=== PATIENT | female | born 1965 | race Caucasian/White ===

== ENCOUNTER 2017-01-06 00:31 | Emergency (ER) | payer OTHER ==
[2017-01-06] MEDS ORDERED: Reglan 10 MG/2 ML IV ONE (01:03)
[2017-01-06] MEDS ORDERED: BENADRYL 50 MG/ML IV ONE (01:03)
[2017-01-06] MEDS ORDERED: Sodium Chloride 0.9% 1000 ML 1,000 ML IV SCH (01:15)
--- NOTE | 2017-01-06 01:15 | ERPHSYRPT ---
- History of Present Illness Time Seen by Provider: 01/06/17 00:58 Source: patient Exam Limitations: clinical condition Patient Subjective Stated Complaint: "I woke up with a migraine today. it is just getting worse." Triage Nursing Assessment: aox3, breathing easy unlabored, skin pink warm dry, steady gait, PERRLA, no facial drooping or weakness noted Physician History: PATIENT WITH HISTORY OF MIGRAINE HEADACHES LONGSTANDING AWAKENED THIS MORNING WITH A MIGRAINE HEADACHE, ASSOCIATED WITH PHOTOPHOBIA, DENIES BLURRED VISION, NECK STIFFFNESS, FEVER OR CHILLS. Timing/Duration: today Quality: throbbing Head Pain Location: global Severity of Pain-Max: moderate Severity of Pain-Current: moderate Recent Head Trauma: no recent headache/trauma Modifying Factors: Improves With: exposure to light Associated Symptoms: sensitive to light Previous symptoms: same symptoms as today Allergies/Adverse Reactions: Penicillins Allergy (Unknown, Verified 01/06/17 00:34) amoxicillin Adverse Reaction (Mild, Verified 01/06/17 00:34) Vomiting Home Medications: Fluticasone/Salmeterol Disc [Advair 250-50 Diskus 14 Dose] 1 puff IH BID 11/13/15 [History] Nitroglycerin 0.4 mg Tablet [Nitrostat 0.4 MG Tablet] 0.4 mg PO UD PRN 05/21 [History] Aspirin 81 gm Chew [Baby Aspirin 81 mg Chew] 81 mg PO DAILY 01/06/17 [ History] Bupropion HCl [Wellbutrin] 150 mg PO BID 01/06/17 [History] Diltiazem HCl 30 mg [Cardizem 30 MG] 90 mg PO BID 01/06/17 [History] Imipramine HCl [Tofranil] 25 mg PO DAILY 01/06/17 [History] Lisinopril 10 mg [Zestril 10 MG] 10 mg PO DAILY 01/06/17 [History] Metformin HCl 500 mg [Glucophage 500 MG] 500 mg PO BID 01/06/17 [History] Propranolol HCl 20 mg [Inderal 20 MG] 80 mg PO DAILY 01/06/17 [History] Hx Tetanus, Diphtheria Vaccination/Date Given: Yes Hx Influenza Vaccination/Date Given: Yes Hx Pneumococcal Vaccination/Date Given: Yes - Review of Systems Constitutional: No Fever, No Chills Eyes: No Symptoms Ears, Nose, & Throat: No Symptoms Respiratory: No Symptoms, No Cough, No Dyspnea Cardiac: No Symptoms, No Chest Pain, No Edema, No Syncope Abdominal/Gastrointestinal: No Symptoms, No Abdominal Pain, No Nausea, No Vomiting, No Diarrhea Genitourinary Symptoms: Incontinence, No Dysuria Musculoskeletal: No Symptoms, No Back Pain, No Neck Pain Skin: No Symptoms, No Rash Neurological: Headache, No Dizziness, No Focal Weakness, No Sensory Changes Psychological: No Symptoms Endocrine: No Symptoms All Other Systems: Reviewed and Negative - Past Medical History Pertinent Past Medical History: Yes Neurological History: Migraines, TIA ENT History: No Pertinent History Cardiac History: No Pertinent History, High Cholesterol, Hypertension Respiratory History: COPD Endocrine Medical History: No Pertinent History Musculoskeletal History: No Pertinent History GI Medical History: No Pertinent History History: No Pertinent History Psycho-Social History: Depression Female Reproductive Disorders: No Pertinent History - Past Surgical History Past Surgical History: Yes Neuro Surgical History: No Pertinent History, Other Cardiac: No Pertinent History Respiratory: No Pertinent History Gastrointestinal: Cholecystectomy Genitourinary: No Pertinent History Musculoskeletal: No Pertinent History Female Surgical History: Section, Hysterectomy Other Surgical History: . back surgery - Social History Smoking Status: Current every day smoker How long have you smoked: 28 Exposure to second hand smoke: No Drug Use: none Patient Lives Alone: No Significant Family History: cancer - Female History Hx Now: No - Nursing Vital Signs Nursing Vital Signs: Initial Vital Signs Temperature 98.7 F Temperature Source Oral Pulse Rate 79 Respiratory Rate 14 Blood Pressure [Right Arm] 174/97 Pain Intensity 8 - Physical Exam General Appearance: mild distress Eye Exam: PERRL/EOMI Ears, Nose, Throat Exam: normal ENT inspection, moist mucous membranes, other ( NO PERCUSSION TENDERNESS OVER SINUSES) Neck Exam: normal inspection, supple, full range of motion, No meningismus Respiratory Exam: normal breath sounds, lungs clear Cardiovascular Exam: regular rate/rhythm, normal heart sounds Gastrointestinal/Abdominal Exam: soft, No tenderness, No distention Back Exam: normal inspection, normal range of motion Mental Status Exam: alert, oriented x 3, 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 Exam: normal speech, PERRL, No facial droop Coordination/Gait Exam: normal cerebellar function Motor/Sensory Exam: no motor deficit, no sensory deficit DTR Exam: bicep (R): 2+, bicep (L): 2+, tricep (R): 2+, tricep (L): 2+, knee (R) : 2+, knee (L): 2+, ankle (R): 2+, ankle (L): 2+ Skin Exam: normal color, warm, dry, No rash SpO2 Interpretation: normal SpO2: 97 Oxygen Delivery: Room Air Ordered Tests: Active Orders 24 hr Category Date Time Status IV Insertion STAT Care 01/06/17 01:03 Active Medication Summary Generic Name Dose Route Start Last Admin Trade Name Freq PRN Reason Stop Dose Admin Sodium Chloride 1,000 mls @ 100 mls/hr 01/06/17 01:15 01/06/17 01:30 Sodium Chloride 0.9% 1000 Ml IV 02/05/17 01:14 100 mls/hr .Q10H BOSSMAN Administration Discontinued Medications Generic Name Dose Route Start Last Admin Trade Name Freq PRN Reason Stop Dose Admin Diphenhydramine HCl 25 mg 01/06/17 01:03 01/06/17 01:30 Benadryl 50 Mg/Ml IV 01/06/17 01:04 25 mg STAT ONE Administration Diphenhydramine HCl Confirm 01/06/17 01:29 Benadryl 50 Mg/Ml Administered 01/06/17 01:30 Dose 50 mg .ROUTE .STK-MED ONE Hydromorphone HCl 1 mg 01/06/17 01:38 01/06/17 01:54 Hydromorphone 1 Mg/Ml Ampule IV 01/06/17 01:39 1 mg STAT ONE Administration Hydromorphone HCl Confirm 01/06/17 01:53 Hydromorphone 1 Mg/Ml Ampule Administered 01/06/17 01:54 Dose 1 mg .ROUTE .STK-MED ONE Metoclopramide HCl 10 mg 01/06/17 01:03 01/06/17 01:30 Reglan 10 Mg/2 Ml IV 01/06/17 01:04 10 mg STAT ONE Administration Metoclopramide HCl Confirm 01/06/17 01:28 Reglan 10 Mg/2 Ml Administered 01/06/17 01:29 Dose 10 mg .ROUTE .STK-MED ONE - Progress Progress: improved, re-examined Progress Note: 01/06/17 01:13 PATIENT GIVEN IV FLUIDS, NORMAL SALINE 100MG/HR REGLAN 10MG, BENADRYL 25MG IV AND DILAUDID 1MG IV Counseled pt/family regarding: diagnosis, need for follow-up - Departure Time of Disposition: 02:25 Departure Disposition: Home Clinical Impression: ACUTE MIGRAINE CEPHALGIA Condition: Stable Critical Care Time: No Referrals: CHASE LEE [Primary Care Provider] - Instructions: Headache Additional Instructions: FOLLOWUP WITH HOUR FAMILY PHYSICIAN AND YOUR NEUROLOGIST. FIORICET EVERY 4 HOURS FOR PAIN DISCOMFORT NEEDED. Prescriptions: Butalb/Acetaminophen/Caffeine [Fioricet 50-300-40 mg Capsule] 1 each PO Q4H PRN PRN #15 capsule PRN Reason: Pain
[2017-01-06] MEDS ORDERED: Reglan 10 MG/2 ML ONE (01:28)
[2017-01-06] MEDS ORDERED: Sodium Chloride 0.9% 1000 ML 1,000 ML ONE (01:28)
[2017-01-06] MEDS ORDERED: BENADRYL 50 MG/ML ONE (01:29)
[2017-01-06] MEDS ORDERED: Hydromorphone 1 mg/ml Ampule IV ONE (01:38)
[2017-01-06] MEDS ORDERED: Hydromorphone 1 mg/ml Ampule ONE (01:53)
[2017-01-06 01:58] VITALS: BP 174/97; PULSE 79
[2017-01-06 02:18] VITALS: O2SAT 97
== END 2017-01-06 02:41 | disposition home or self-care (01) ==
LOC: ED 00:31
DX: G43.909 Migraine, unspecified, not intractable, without status migrainosus (principal)
CPT/HCPCS: 36000; 96360; 96365; 96374; 96375; 99284; J1170; J1200

== ENCOUNTER 2017-02-02 20:53 | Emergency (ER) | payer OTHER ==
[2017-02-02] MEDS ORDERED: Reglan 10 MG/2 ML IV ONE (21:07)
[2017-02-02] MEDS ORDERED: Sodium Chloride 0.9% 1000 ML 1,000 ML IV STA (21:07)
[2017-02-02] MEDS ORDERED: TORAdol 30 mg Injection IV ONE (21:07)
[2017-02-02] MEDS ORDERED: BENADRYL 50 MG/ML IV ONE (21:07)
[2017-02-02] MEDS ORDERED: Reglan 10 MG/2 ML ONE (21:11)
[2017-02-02] MEDS ORDERED: TORAdol 30 mg Injection ONE (21:11)
[2017-02-02] MEDS ORDERED: Sodium Chloride 0.9% 1000 ML 1,000 ML ONE (21:11)
[2017-02-02] MEDS ORDERED: BENADRYL 50 MG/ML ONE (21:11)
[2017-02-02 21:21] LABS: VBG BASE EXCESS 4.7 (-2.0-2.0); VBG HCO3- 28.2 meq/L (22-28); VBG O2 SATURATION 87.6 (95-100); VBG pH 7.49 (7.32-7.42)
[2017-02-02 21:22] LABS: VBG CARBOXYHEMOGLOBIN 8.3 % T HGB (0.0-6.9); VBG POTASSIUM 2.7 (3.5-5.1)
[2017-02-02] MEDS ORDERED: K-LYTE 25 MEQ PO ONE (21:23)
[2017-02-02] MEDS ORDERED: K-LYTE 25 MEQ ONE (21:27)
--- NOTE | 2017-02-02 21:29 | ERPHSYRPT ---
- History of Present Illness Time Seen by Provider: 02/02/17 21:03 Source: patient Patient Subjective Stated Complaint: Pt sts headache all over head x 1 week. Took 2 500 mg tylenol at 1600 and 2 200 mg ibuprofen at 1300 without relief. Describes as feeling like someone is hitting her in the head. Lights and noise makes pain worse. Sts nausea, vomiting x 2. Sts feels like normal migraines at home. Sts has an appt Friday with Dr. Stringer in [place] for a "migraine block" Triage Nursing Assessment: Pt alert, oriented, answers questions appropriately. Ambulatory to room, steady gait noted. Skin p/w/d, resps non-labored. Pt holding head. Pupils PERRL. Physician History: CC: headache Hx: 51 y/o patient of Dr Stringer a neurologist in [place]. She has hx of migraine headaches. Prior negative MRI/MRA brain. She reports return of her typical headache, gradual, constant since past one week. No fever. She has nausea and photophobia. Not better with home meds. She is scheduled next week for a block procedure. She vomited twice at home today. Borderline DM. She is a smoker. Timing/Duration: week(s) (1) Head Pain Location: global Severity of Pain-Max: severe Severity of Pain-Current: severe Allergies/Adverse Reactions: Penicillins Allergy (Unknown, Verified 02/02/17 21:05) amoxicillin Adverse Reaction (Mild, Verified 02/02/17 21:05) Vomiting Home Medications: Fluticasone/Salmeterol Disc [Advair 250-50 Diskus 14 Dose] 1 puff IH BID 11/13/15 [History] Nitroglycerin 0.4 mg Tablet [Nitrostat 0.4 MG Tablet] 0.4 mg PO UD PRN 05/21 [History] Aspirin 81 gm Chew [Baby Aspirin 81 mg Chew] 81 mg PO DAILY 01/06/17 [ History] Bupropion HCl [Wellbutrin] 150 mg PO BID 01/06/17 [History] Diltiazem HCl 30 mg [Cardizem 30 MG] 90 mg PO BID 01/06/17 [History] Imipramine HCl [Tofranil] 25 mg PO DAILY 01/06/17 [History] Lisinopril 10 mg [Zestril 10 MG] 10 mg PO DAILY 01/06/17 [History] Metformin HCl 500 mg [Glucophage 500 MG] 500 mg PO BID 01/06/17 [History] Propranolol HCl 20 mg [Inderal 20 MG] 80 mg PO DAILY 01/06/17 [History] Hx Tetanus, Diphtheria Vaccination/Date Given: Yes Hx Influenza Vaccination/Date Given: Yes Hx Pneumococcal Vaccination/Date Given: Yes Immunizations Up to Date: Yes - Review of Systems Constitutional: No Fever, No Chills Eyes: Photophobia, No Vision Changes Ears, Nose, & Throat: No Symptoms Respiratory: No Symptoms Cardiac: No Chest Pain Abdominal/Gastrointestinal: Nausea, Vomiting (X2), No Abdominal Pain Musculoskeletal: No Symptoms Neurological: Headache, No Paralysis, No Parasthesia All Other Systems: Reviewed and Negative - Past Medical History Pertinent Past Medical History: Yes Neurological History: Migraines, TIA ENT History: No Pertinent History Cardiac History: No Pertinent History, High Cholesterol, Hypertension Respiratory History: COPD Endocrine Medical History: No Pertinent History Musculoskeletal History: No Pertinent History GI Medical History: No Pertinent History History: No Pertinent History Psycho-Social History: Depression Female Reproductive Disorders: No Pertinent History - Past Surgical History Past Surgical History: Yes Neuro Surgical History: No Pertinent History, Other Cardiac: No Pertinent History Respiratory: No Pertinent History Gastrointestinal: Cholecystectomy Genitourinary: No Pertinent History Musculoskeletal: No Pertinent History Female Surgical History: Section, Hysterectomy Other Surgical History: . back surgery - Social History Smoking Status: Current every day smoker How long have you smoked: 25 Exposure to second hand smoke: No Drug Use: none Patient Lives Alone: No Significant Family History: cancer - Female History Hx Last Menstrual Period: partial hyst Hx Now: No - Nursing Vital Signs Nursing Vital Signs: Initial Vital Signs Temperature 98.4 F Temperature Source Oral Pulse Rate 78 Respiratory Rate 16 Blood Pressure [Right Arm] 127/86 Pain Intensity 9 - Physical Exam General Appearance: alert Eye Exam: PERRL/EOMI Ears, Nose, Throat Exam: normal ENT inspection, moist mucous membranes Neck Exam: normal inspection, non-tender, supple Respiratory Exam: normal breath sounds, lungs clear Cardiovascular Exam: regular rate/rhythm, No murmur Gastrointestinal/Abdominal Exam: soft, No tenderness, No distention Extremity Exam: normal inspection, normal range of motion Mental Status Exam: alert, oriented x 3, 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 Exam: normal hearing, normal speech, PERRL Coordination/Gait Exam: normal gait Motor/Sensory Exam: no motor deficit, no sensory deficit Skin Exam: warm, dry, No rash SpO2 Interpretation: normal SpO2: 97 Oxygen Delivery: Room Air - Course Nursing assessment & vital signs reviewed: Yes EKG Interpreted by Me: RATE (86), Sinus Rhythm, NORMAL AXIS, NORMAL INTERVALS ( QTc 467), Non-specific ST Changes, Other (QRS 102; U waves present, nonspecific changes present) Ordered Tests: Active Orders 24 hr Category Date Time Status EKG-ER Only STAT Care 02/02/17 21:23 Active IV Insertion STAT Care 02/02/17 21:07 Active Oxygen-ED Only NON-REBREATHER 100% Care 02/02/17 21:23 Active BMP Stat Lab 02/02/17 21:15 Completed Glucose,Critical Care Urgent Lab 02/02/17 21:15 Completed MAGNESIUM Stat Lab 02/02/17 21:15 Completed VENOUS BLOOD GAS Urgent Lab 02/02/17 21:15 Completed Medication Summary Generic Name Dose Route Start Last Admin Trade Name Freq PRN Reason Stop Dose Admin Magnesium Sulfate/Dextrose 100 mls @ 100 mls/hr 02/02/17 21:45 02/02/17 22:51 Magnesium 1 Gm / 100 Ml D5w IV 02/02/17 23:44 100 mls/hr Q1H BOSSMAN Administration Discontinued Medications Generic Name Dose Route Start Last Admin Trade Name Freq PRN Reason Stop Dose Admin Diphenhydramine HCl 25 mg 02/02/17 21:07 02/02/17 21:21 Benadryl 50 Mg/Ml IV 02/02/17 21:08 25 mg STAT ONE Administration Diphenhydramine HCl Confirm 02/02/17 21:11 Benadryl 50 Mg/Ml Administered 02/02/17 21:12 Dose 50 mg .ROUTE .STK-MED ONE Sodium Chloride 1,000 mls @ 999 mls/hr 02/02/17 21:07 02/02/17 21:20 Sodium Chloride 0.9% 1000 Ml IV 02/02/17 22:07 999 mls/hr .Q1H1M STA Administration Sodium Chloride Confirm 02/02/17 21:11 Sodium Chloride 0.9% 1000 Ml Administered 02/02/17 21:12 Dose 1,000 mls @ ud .ROUTE .STK-MED ONE Ketorolac Tromethamine 30 mg 02/02/17 21:07 02/02/17 21:20 Toradol 30 Mg Injection IV 02/02/17 21:08 30 mg STAT ONE Administration Ketorolac Tromethamine Confirm 02/02/17 21:11 Toradol 30 Mg Injection Administered 02/02/17 21:12 Dose 30 mg .ROUTE .STK-MED ONE Metoclopramide HCl 10 mg 02/02/17 21:07 02/02/17 21:20 Reglan 10 Mg/2 Ml IV 02/02/17 21:08 10 mg STAT ONE Administration Metoclopramide HCl Confirm 02/02/17 21:11 Reglan 10 Mg/2 Ml Administered 02/02/17 21:12 Dose 10 mg .ROUTE .STK-MED ONE Potassium Bicarbonate 50 meq 02/02/17 21:23 02/02/17 21:30 K-Lyte 25 Meq PO 02/02/17 21:24 50 meq STAT ONE Administration Potassium Bicarbonate Confirm 02/02/17 21:27 K-Lyte 25 Meq Administered 02/02/17 21:28 Dose 50 meq .ROUTE .STK-MED ONE Lab/Rad Data: Laboratory Result Diagrams 02/02/17 21:15 Laboratory Results 02/02/17 02/02/17 02/02/17 Range/Units 21:15 21:15 21:15 VBG pH 7.49 H (7.32-7.42) VBG pCO2 at Pat Temp 37 L (42-55) mm/Hg VBG pO2 at Pat Temp 42 H (25-40) mm/Hg VBG HCO3 28.2 H (22-28) meq/L VBG O2 Sat (Giuliana) 87.6 L (95-100) VBG Base Excess 4.7 H (-2.0-2.0) VBG Hemoglobin 12.0 VBG Carboxyhemoglobin 8.3 H* (0.0-6.9) % T HGB POC Potassium 2.7 L* (3.5-5.1) Glucose 104 99 (70-110) Sodium 140 (136-145) mEq/L Potassium 2.7 L* (3.5-5.1) mEq/L Chloride 104 (98-107) mEq/L Carbon Dioxide 24.9 (21-32) mEq/L Anion Gap 14.2 (5-15) MEQ/L BUN 7 L (9-20) mg/dL Creatinine 0.40 L (0.55-1.30) mg/dl Estimated GFR > 60 ML/MIN Calcium 9.6 (8.5-10.1) mg/dL Magnesium 1.3 L (1.8-2.4) mg/dL - Progress Progress Note: 02/02/17 22:58 Pt was medicated with benadryl, reglan, toradol. K and mag were low. She has had this in the past but is not currently on supplements. PO K given. Mag rider given. She feels better and wants to go home to be with her grand-daughter. Advised follow up with Dr Fuentes. Advised smoking cessation and quit now number and RT consult given. Counseled pt/family regarding: lab results, diagnosis, need for follow-up - Departure Time of Disposition: 22:59 Departure Disposition: Home Clinical Impression: Migraine headache, Hypokalemia, Smoker Condition: Stable Critical Care Time: No Referrals: CHASE FUENTES [Primary Care Provider] - Instructions: Headache, Hypokalemia, Quit Smoking Additional Instructions: No driving tonite and stay with family. Rx K-dur. Rx mag ox. Follow up with Dr Fuentes in 1-2 days. Return for problems or concerns. Work on smoking cessation. Prescriptions: Magnesium Oxide 400 mg [Mag-Ox 400] 400 mg PO DAILY #14 tablet Potassium Chloride [K-Dur] 20 meq PO BID #30 tab.er.prt
[2017-02-02 21:39] LABS: ANION GAP 14.2 MEQ/L (5-15); BLOOD UREA NITROGEN 7 mg/dL (9-20); CHLORIDE 104 mEq/L (98-107); Carbon Dioxide 24.9 mEq/L (21-32); Glucose 104 MG/DL (70-110); MAGNESIUM 1.3 mg/dL (1.8-2.4); SODIUM 140 mEq/L (136-145)
[2017-02-02 21:41] LABS: Potassium 2.7 mEq/L (3.5-5.1)
[2017-02-02] MEDS ORDERED: Magnesium 1 Gm / 100 Ml D5W*** 100 ML IV ONE ×2 (21:41→21:53)
[2017-02-02] MEDS: Magnesium 1 Gm / 100 Ml D5W*** 100 ML IV SCH ×2 (21:42→22:51)
[2017-02-02 23:37] VITALS: BP 118/70; PULSE 72; O2SAT 95
== END 2017-02-02 23:37 | disposition home or self-care (01) ==
LOC: ED 20:53
DX: G43.909 Migraine, unspecified, not intractable, without status migrainosus (principal); E87.6 Hypokalemia; Z72.0 Tobacco use; I10 Essential (primary) hypertension; J44.9 Chronic obstructive pulmonary disease, unspecified; E78.00 Pure hypercholesterolemia, unspecified; F32.9 Major depressive disorder, single episode, unspecified; E11.9 Type 2 diabetes mellitus without complications; Z79.4 Long term (current) use of insulin; Z79.899 Other long term (current) drug therapy
CPT/HCPCS: 36000; 36415; 80048; 82805; 82947; 83735; 93005; 96360; 96361; 96374; 96375; 99284; J1200; J1885; J3475; A9270-GY

== ENCOUNTER 2017-02-07 20:24 | Emergency (ER) | payer OTHER ==
[2017-02-07] MEDS ORDERED: NALBUPHINE HCL 10 MG/1 ML INJECTION IM STA (20:43)
[2017-02-07] MEDS ORDERED: TORAdol 30 mg Injection IM ONE (20:43)
[2017-02-07] MEDS ORDERED: Nubain 10 MG/ML ONE (20:47)
[2017-02-07] MEDS ORDERED: TORAdol 30 mg Injection ONE (20:47)
--- NOTE | 2017-02-07 20:47 | ERPHSYRPT ---
- History of Present Illness Time Seen by Provider: 02/07/17 20:44 Source: patient Exam Limitations: no limitations Patient Subjective Stated Complaint: pt states she has had a headache off and on for the last 2 weeks. states its been getting much worse today. Triage Nursing Assessment: pt alert and oriented, answers questions approp. pt ambulatory with steady gait noted. respirations nonlabored with lungs cta. pt c/ o throbbing headache made worse with light. pupils equal and reactive. ext strength upper and lower equal and strong. Physician History: pt states she has had a headache off and on for the last 2 weeks. states its been getting much worse today. Timing/Duration: today Quality: aching Head Pain Location: frontal Severity of Pain-Max: moderate Severity of Pain-Current: moderate Recent Head Trauma: frequent headaches, chronic headaches Modifying Factors: Improves With: exposure to light Associated Symptoms: facial pain, sensitive to light, stiff neck, vision changes Previous symptoms: same symptoms as today Allergies/Adverse Reactions: Penicillins Allergy (Unknown, Verified 02/07/17 20:38) Rash amoxicillin Adverse Reaction (Intermediate, Verified 02/07/17 20:38) Rash Home Medications: Fluticasone/Salmeterol Disc [Advair 250-50 Diskus 14 Dose] 1 puff IH BID 11/13/15 [History] Nitroglycerin 0.4 mg Tablet [Nitrostat 0.4 MG Tablet] 0.4 mg PO UD PRN 05/21 [History] Aspirin 81 gm Chew [Baby Aspirin 81 mg Chew] 81 mg PO DAILY 01/06/17 [ History] Bupropion HCl [Wellbutrin] 150 mg PO BID 01/06/17 [History] Lisinopril 10 mg [Zestril 10 MG] 10 mg PO DAILY 01/06/17 [History] Metformin HCl 500 mg [Glucophage 500 MG] 500 mg PO BID 01/06/17 [History] Diltiazem HCl 240 mg [Cardizem CD 240 MG] 1 tab PO DAILY 02/05/17 [History ] Propranolol HCl 1 tab PO DAILY 02/05/17 [History] Hx Tetanus, Diphtheria Vaccination/Date Given: Yes Hx Influenza Vaccination/Date Given: Yes (fall 2015) Hx Pneumococcal Vaccination/Date Given: Yes (Aug 2016) - Review of Systems Constitutional: No Fever, No Chills Eyes: No Symptoms Ears, Nose, & Throat: No Symptoms Respiratory: No Cough, No Dyspnea Cardiac: No Chest Pain, No Edema, No Syncope Abdominal/Gastrointestinal: No Abdominal Pain, No Nausea, No Vomiting, No Diarrhea Genitourinary Symptoms: No Dysuria Musculoskeletal: No Back Pain, No Neck Pain Skin: No Rash Neurological: Headache, No Dizziness, No Focal Weakness, No Sensory Changes Psychological: No Symptoms Endocrine: No Symptoms All Other Systems: Reviewed and Negative - Past Medical History Pertinent Past Medical History: Yes Neurological History: Migraines ENT History: No Pertinent History Cardiac History: No Pertinent History, High Cholesterol, Hypertension Respiratory History: COPD Endocrine Medical History: Diabetes Type II Musculoskeletal History: No Pertinent History GI Medical History: No Pertinent History History: No Pertinent History Psycho-Social History: No Pertinent History Female Reproductive Disorders: Menstrual Problems - Past Surgical History Past Surgical History: Yes Neuro Surgical History: No Pertinent History Cardiac: No Pertinent History Respiratory: No Pertinent History Gastrointestinal: Cholecystectomy Genitourinary: No Pertinent History Musculoskeletal: No Pertinent History Female Surgical History: Section, Hysterectomy Other Surgical History: - Social History Smoking Status: Current every day smoker How long have you smoked: 25 Exposure to second hand smoke: No Drug Use: none Patient Lives Alone: No Significant Family History: cancer - Female History Hx Last Menstrual Period: post Hx Now: No - Nursing Vital Signs Nursing Vital Signs: Initial Vital Signs Temperature 98.6 F Temperature Source Oral Pulse Rate 72 Respiratory Rate 18 Blood Pressure [Right Arm] 168/96 Pain Intensity 10 - Physical Exam General Appearance: no apparent distress Eye Exam: PERRL/EOMI Ears, Nose, Throat Exam: normal ENT inspection, moist mucous membranes Neck Exam: normal inspection, supple, full range of motion, No meningismus Respiratory Exam: normal breath sounds, lungs clear Cardiovascular Exam: regular rate/rhythm, normal heart sounds Gastrointestinal/Abdominal Exam: soft, No tenderness, No distention Back Exam: normal inspection, normal range of motion Mental Status Exam: alert, oriented x 3, cooperative lvn lpn Exam: normal speech, PERRL, No facial droop Coordination/Gait Exam: normal cerebellar function Motor/Sensory Exam: no motor deficit, no sensory deficit Skin Exam: normal color, warm, dry, No rash SpO2: 96 Oxygen Delivery: Room Air - Course Nursing assessment & vital signs reviewed: Yes Ordered Tests: Medication Summary Generic Name Dose Route Start Last Admin Trade Name Zuhair PRN Reason Stop Dose Admin Ketorolac Tromethamine 60 mg 02/07/17 20:43 Toradol 30 Mg Injection IM 02/07/17 20:44 STAT ONE Nalbuphine HCl 10 mg 02/07/17 20:43 Nalbuphine Hcl 10 Mg/1 Ml Injection IM 02/07/17 20:44 STAT STA - Progress Progress: improved Counseled pt/family regarding: diagnosis, need for follow-up - Departure Time of Disposition: 20:47 Departure Disposition: Home Clinical Impression: Migraine headache Qualifiers: Migraine type: with aura Status migrainosus presence: without status migrainosus Intractability: intractable Qualified Code(s): G43.119 - Migraine with aura, intractable, without status migrainosus Condition: Stable Critical Care Time: Yes Critical Care Time(excluding separately billable procedures): 30-74 minutes Referrals: CHASE LEE [Primary Care Provider] - Instructions: Headache Additional Instructions: HEADACHE 1. After discharge from the emergency department, you should rest at home in a cool, dark, quiet place for 12-24 hours. 2. If any of the following signs or symptoms are noticed, you should be re- evaluated right away: A. Visual changes B. Stiff Neck C. Change in quality or location of pain D. Fever E. Recurrent vomiting 3. If pain medications were prescribed or given, they may cause drowsiness.
[2017-02-07 21:14] VITALS: BP 129/70; PULSE 76; O2SAT 98
== END 2017-02-07 21:14 | disposition home or self-care (01) ==
LOC: ED 20:24
DX: G43.119 Migraine with aura, intractable, without status migrainosus (principal)
CPT/HCPCS: 96372; 99283; J1885; J2300

== ENCOUNTER 2017-02-12 05:53 | Day surgery (SDC) | payer OTHER ==
[2017-02-12] MEDS ORDERED: Lactated Ringers 1,000 ML IV SCH (06:30)
[2017-02-12 07:58] VITALS: BP 141/81; PULSE 70; O2SAT 94
[2017-02-12] MEDS ORDERED: Ketamine HCl 50 MG/ML IV ONE (08:00)
[2017-02-12] MEDS ORDERED: DIPRIVAN 200 MG/20 ML IV ONE (09:00)
--- NOTE | 2017-02-12 09:52 | OP ---
SURGERY DATE/TIME: 02/12/2017 0700 PREOPERATIVE DIAGNOSES: 1) Epigastric pain. 2) Nausea. POSTOPERATIVE DIAGNOSIS: Normal exam. PROCEDURE: EGD. SURGEON: Alonso Ordonez M.D. ANESTHESIA: MAC by Parth Ingram CRNA. ESTIMATED BLOOD LOSS: None. SPECIMENS: None. DESCRIPTION OF PROCEDURE: After informed written consent was obtained, the patient was taken to the endoscopy suite. She underwent monitored anesthesia and a bite block was inserted. The endoscope was inserted into posterior oropharynx and under direct visualization the esophagus was traversed. The gastroesophageal mucosa was normal in appearance free of lesions or defects. Upon entering the stomach there was normal rugated gastric mucosa free of any lesions or defects. The gastric antrum area was inspected and noted to be free of any lesions or abnormalities. Pylorus was traversed and first and second portions of the duodenum within normal limits. Upon withdrawal again there were no appreciable mucosal abnormalities in the gastric mucosa, gastroesophageal junction or the esophagus. The scope was removed and the patient was transferred to the recovery room in excellent condition.
== END 2017-02-12 08:27 | disposition home or self-care (01) ==
LOC: SDC 05:53
PROVIDERS: ATTEND Family Medicine
PROC: 0DJ08ZZ Inspection of Upper Intestinal Tract, Via Natural or Artificial Opening Endoscopic (ICD-10-PCS; principal; 2017-02-12)
DX: R10.13 Epigastric pain (principal); R11.0 Nausea
CPT/HCPCS: 00740; J2704

== ENCOUNTER 2017-03-02 20:32 | Emergency (ER) | payer OTHER ==
--- NOTE | 2017-03-02 21:05 | ERPHSYRPT ---
- History of Present Illness Time Seen by Provider: 03/02/17 20:59 Source: patient Exam Limitations: no limitations Patient Subjective Stated Complaint: PT WOKE THIS MORNING AND NOTICED A BLISTER ON THE PALM OF HER RIGHT HAND. COMPLAINS OF HAND PAIN AND GENERALIZED SWELLING TO THE RIGHT HAND. PT UNABLE TO CLOSE THE R HAND. Triage Nursing Assessment: PT IS AOX3, AMBULATORY TO COT WITH NO DIFFICULTIES, RESP ARE EASY AND NONLABORED, SKIN IS PWD. R HAND IS SWOLLEN WITH A SMALL RAISED AREA NOTED TO THE PALM. PULSES ARE STRONG AND REGULAR. NORMAL ROM TO ALL EXTREMITIES. Physician History: Pt. awakened today with blister on R palm of hand. No trauma or injury to area. No insect bite of skin rupture at any time. Noticed redness to area with some swelling to R hand. No fever, chills, dizziness, weakness, nausea, vomiting or any systemic symptoms. Tylenol with some relief. Have not been working outside but inside cleaning. Timing/Duration: today Quality: painful Severity: mild Location: other (R hand) Possible Causes: no cause identified Modifying Factors: Improves With: other (hand movement worsens) Associated Symptoms: blisters, change in skin texture, No fever, No numbness, No pallor Allergies/Adverse Reactions: Penicillins Allergy (Unknown, Verified 03/02/17 20:45) Rash amoxicillin Adverse Reaction (Intermediate, Verified 03/02/17 20:45) Rash Home Medications: Fluticasone/Salmeterol Disc [Advair 250-50 Diskus 14 Dose] 1 puff IH BID 11/13/15 [History] Nitroglycerin 0.4 mg Tablet [Nitrostat 0.4 MG Tablet] 0.4 mg PO UD PRN 05/21 [History] Aspirin 81 gm Chew [Baby Aspirin 81 mg Chew] 81 mg PO DAILY 01/06/17 [ History] Bupropion HCl [Wellbutrin] 150 mg PO BID 01/06/17 [History] Lisinopril 10 mg [Zestril 10 MG] 10 mg PO DAILY 01/06/17 [History] Metformin HCl 500 mg [Glucophage 500 MG] 500 mg PO BID 01/06/17 [History] Diltiazem HCl 240 mg [Cardizem CD 240 MG] 1 tab PO DAILY 02/05/17 [History ] Propranolol HCl 1 tab PO DAILY 02/05/17 [History] Hx Tetanus, Diphtheria Vaccination/Date Given: No Hx Influenza Vaccination/Date Given: No Hx Pneumococcal Vaccination/Date Given: No Immunizations Up to Date: Yes - Review of Systems Constitutional: No Symptoms, No Fever, No Chills Eyes: No Symptoms Ears, Nose, & Throat: No Symptoms Respiratory: No Cough, No Dyspnea Cardiac: No Chest Pain, No Edema, No Syncope Abdominal/Gastrointestinal: No Abdominal Pain, No Nausea, No Vomiting, No Diarrhea Genitourinary Symptoms: No Dysuria Musculoskeletal: No Back Pain, No Neck Pain Skin: Cellulitis Neurological: No Symptoms, No Dizziness, No Focal Weakness, No Sensory Changes Psychological: No Symptoms Endocrine: No Symptoms All Other Systems: Reviewed and Negative - Past Medical History Pertinent Past Medical History: Yes Neurological History: Migraines ENT History: No Pertinent History Cardiac History: No Pertinent History, High Cholesterol, Hypertension Respiratory History: COPD Endocrine Medical History: Diabetes Type II Musculoskeletal History: No Pertinent History GI Medical History: No Pertinent History History: No Pertinent History Psycho-Social History: No Pertinent History Female Reproductive Disorders: Menstrual Problems - Past Surgical History Past Surgical History: Yes Neuro Surgical History: No Pertinent History Cardiac: No Pertinent History Respiratory: No Pertinent History Gastrointestinal: Cholecystectomy Genitourinary: No Pertinent History Musculoskeletal: No Pertinent History Female Surgical History: Section, Hysterectomy Other Surgical History: - Social History Smoking Status: Current every day smoker How long have you smoked: 20 Exposure to second hand smoke: Yes Drug Use: none Patient Lives Alone: No Significant Family History: cancer - Female History Hx Last Menstrual Period: HYST Hx Now: No - Nursing Vital Signs Nursing Vital Signs: Initial Vital Signs Temperature 97.9 F Temperature Source Oral Pulse Rate 95 Respiratory Rate 18 Blood Pressure [Right Arm] 140/97 Pain Intensity 8 - Physical Exam General Appearance: no apparent distress, alert Eye Exam: PERRL/EOMI, eyes nml inspection Ears, Nose, Throat Exam: normal ENT inspection, pharynx normal, moist mucous membranes Neck Exam: normal inspection, non-tender, supple, full range of motion Respiratory Exam: normal breath sounds, lungs clear, No respiratory distress Cardiovascular Exam: regular rate/rhythm, normal heart sounds Gastrointestinal/Abdomen Exam: soft, mass, No tenderness Back Exam: normal inspection, normal range of motion, No CVA tenderness, No vertebral tenderness Extremity Exam: normal inspection, normal range of motion Neurologic Exam: alert, oriented x 3, cooperative, normal mood/affect, sensation nml, No motor deficits Skin Exam: normal color, warm, dry, other (Small circular lesion with surrounding erythema and some tenderness to palp. Moving fingers without difficulty. Minimal sweeling or R hand noted. +2 Radial pulses bilat with good cap refill. No other skin lesions noted) Lymphatic Exam: adenopathy SpO2 Interpretation: normal SpO2: 97 Oxygen Delivery: Room Air - Course Nursing assessment & vital signs reviewed: Yes - Progress Progress: improved Progress Note: 03/02/17 21:10 Pt. given Rocephin/Motrin Counseled pt/family regarding: diagnosis - Departure Time of Disposition: 21:10 Departure Disposition: Home Clinical Impression: Cellulitis of right hand Condition: Stable Critical Care Time: No Instructions: Cellulitis -- Adult Additional Instructions: RX: Bactrim DS Elevate, ice to area, Motrin 600mg every 6 hrs to decrease swelling/pain. Prescriptions: Sulfamethoxazole/Trimethoprim [Bactrim Ds Tablet] 1 each PO BID #20 tablet
[2017-03-02] MEDS ORDERED: Rocephin 1000 MG INJ IM ONE (21:17)
[2017-03-02] MEDS ORDERED: Rocephin 1000 MG INJ ONE (21:18)
[2017-03-02] MEDS ORDERED: MOTRIN 600 MG ONE (21:18)
[2017-03-02] MEDS ORDERED: MOTRIN 600 MG PO ONE (21:18)
[2017-03-02] MEDS ORDERED: XYLOCAINE 1% HCL 20 ML MDV ONE (21:19)
[2017-03-02 21:42] VITALS: BP 144/87; PULSE 80; O2SAT 96
== END 2017-03-02 21:42 | disposition home or self-care (01) ==
LOC: ED 20:32
DX: L03.113 Cellulitis of right upper limb (principal)
CPT/HCPCS: 96372; 99284; J0696; A9270-GY

== ENCOUNTER 2017-07-03 19:01 | Emergency (ER) | payer OTHER ==
[2017-07-03] MEDS ORDERED: BABY ASPIRIN 81 MG CHEW PO ONE (19:29)
[2017-07-03] MEDS ORDERED: Sodium Chloride 0.9% 1000 ML 1,000 ML IV STA (19:29)
--- NOTE | 2017-07-03 19:32 | ERPHSYRPT ---
- History of Present Illness Time Seen by Provider: 07/03/17 19:24 Source: patient Exam Limitations: no limitations Patient Subjective Stated Complaint: pt states she has been vomiting and coughing today. states she also has a headache. Triage Nursing Assessment: pt alert and oriented, asnwers questions approp. skin pink warm and dry. pt ambulatoryw ith steady gait noted. respirations nonlabored with lungs cta. pupils equal and reactive, bilat upper and lower ext strength wnl. abd soft and nontender. bowel sounds present in all 4 quads. Physician History: FOR THE PAST 6 HOURS PT HAS HAD INTERMITTENT ACHY ANTERIOR CHEST PAIN ONLY WITH COUGHING, SHORTNESS OF AIR, HEADACHE AND VOMITING X4 WITHOUT BLOOD; FOR THE PAST 3.5 HOURS CHILLS. PT ALSO C/O A CLOGGED FEELING IN HER EARS FOR THE PAST WEEK. LAST BM WAS TODAY & WNL. Allergies/Adverse Reactions: Penicillins Allergy (Unknown, Verified 07/03/17 19:16) Rash amoxicillin Adverse Reaction (Intermediate, Verified 07/03/17 19:16) Rash Home Medications: Fluticasone/Salmeterol Disc [Advair 250-50 Diskus 14 Dose] 1 puff IH BID 11/13/15 [History] Nitroglycerin 0.4 mg Tablet [Nitrostat 0.4 MG Tablet] 0.4 mg PO UD PRN 05/21 [History] Hx Tetanus, Diphtheria Vaccination/Date Given: No Hx Influenza Vaccination/Date Given: No Hx Pneumococcal Vaccination/Date Given: No - Review of Systems Constitutional: Chills Ears, Nose, & Throat: Other (EARS FEELING CLOGGED) Respiratory: Cough, Dyspnea Cardiac: Chest Pain Abdominal/Gastrointestinal: Vomiting, No Abdominal Pain Neurological: Headache Endocrine: No Excessive Sweating All Other Systems: Reviewed and Negative - Past Medical History Pertinent Past Medical History: Yes Neurological History: Migraines ENT History: No Pertinent History Cardiac History: No Pertinent History, High Cholesterol, Hypertension Respiratory History: COPD Endocrine Medical History: Diabetes Type II Musculoskeletal History: No Pertinent History GI Medical History: No Pertinent History History: No Pertinent History Psycho-Social History: No Pertinent History Female Reproductive Disorders: Menstrual Problems - Past Surgical History Past Surgical History: Yes Neuro Surgical History: No Pertinent History Cardiac: No Pertinent History Respiratory: No Pertinent History Gastrointestinal: Cholecystectomy Genitourinary: No Pertinent History Musculoskeletal: No Pertinent History Female Surgical History: Section, Hysterectomy Other Surgical History: - Social History Smoking Status: Current every day smoker How long have you smoked: 20 Exposure to second hand smoke: Yes Drug Use: none Patient Lives Alone: No Significant Family History: cancer - Female History Hx Now: No - Nursing Vital Signs Nursing Vital Signs: Initial Vital Signs Temperature 99.6 F 07/03/17 19:08 Pulse Rate 130 H 07/03/17 19:08 Respiratory Rate 18 07/03/17 19:08 Blood Pressure 115/95 07/03/17 19:08 O2 Sat by Pulse Oximetry 94 L 07/03/17 19:08 Pain Scale Pain Intensity 5 - Physical Exam General Appearance: alert Eye Exam: PERRL/EOMI Ears, Nose, Throat Exam: dry mucous membranes, pharyngeal erythema Neck Exam: normal inspection Respiratory Exam: lungs clear Cardiovascular Exam: tachycardia Gastrointestinal/Abdomen Exam: soft, normal bowel sounds Back Exam: normal range of motion Extremity Exam: normal inspection, No pedal edema Neurologic Exam: alert, cooperative Skin Exam: warm, dry SpO2 Interpretation: normal SpO2: 94 Oxygen Delivery: Room Air - Course Nursing assessment & vital signs reviewed: Yes EKG Interpreted by Me: RATE ([id number]), Sinus Tach, NORMAL AXIS, NORMAL INTERVALS - Radiology Exams Chest X-ray Interpretation: Interpreted by me, No Pneumonia Ordered Tests: Active Orders 24 hr Category Date Time Status Roll Setter STAT Care 07/03/17 19:30 Active EKG-ER Only STAT Care 07/03/17 19:29 Active IV Insertion STAT Care 07/03/17 19:29 Active Oxygen-ED Only NASAL CANNULA 2 lpm Care 07/03/17 19:29 Active Pulse Oximetry (ED) STAT Care 07/03/17 19:29 Active CHEST 2 VIEWS (PA AND LAT) Stat Exams 07/03/17 19:29 Taken AMYLASE Stat Lab 07/03/17 19:40 Completed CBC W DIFF Stat Lab 07/03/17 19:40 Completed CMP Stat Lab 07/03/17 19:40 Completed CULTURE, THROAT Stat Lab 07/03/17 19:40 Received CULTURE,URINE Stat Lab 07/03/17 21:00 Received Erythrocyte Sedimentation Rate Stat Lab 07/03/17 19:40 Completed LIPASE Stat Lab 07/03/17 19:40 Completed Lactic Acid Stat Lab 07/03/17 19:50 Completed MAGNESIUM Stat Lab 07/03/17 19:40 Completed Ada Screen Stat Lab 07/03/17 19:40 Completed NT PRO BNP Stat Lab 07/03/17 19:40 Completed STREP SCREEN-BETA A Stat Lab 07/03/17 19:40 Completed TROPONIN Q3H Lab 07/03/17 19:40 Completed TROPONIN Q3H Lab 07/03/17 22:30 Ordered TROPONIN Q3H Lab 07/04/17 01:30 Ordered TROPONIN Q3H Lab 07/04/17 04:30 Ordered TROPONIN Q3H Lab 07/04/17 07:30 Ordered UA W/ MICROSCOPIC Stat Lab 07/03/17 21:00 Completed Urine Triage Profile Stat Lab 07/03/17 21:00 Completed Medication Summary Generic Name Dose Route Start Last Admin Trade Name Freq PRN Reason Stop Dose Admin Ceftriaxone Sodium/Dextrose 1 g in 50 mls @ 100 mls/hr 07/03/17 21:58 Rocephin 1 Gm-D5w 50 Ml Bag IV 07/03/17 22:27 STAT STA Magnesium Oxide 400 mg 07/03/17 22:00 Mag-Ox 400 PO 08/02/17 21:59 BID BOSSMAN Discontinued Medications Generic Name Dose Route Start Last Admin Trade Name Freq PRN Reason Stop Dose Admin Aspirin 324 mg 07/03/17 19:29 07/03/17 19:38 Baby Aspirin 81 Mg Chew PO 07/03/17 19:30 324 mg STAT ONE Administration Aspirin Confirm 07/03/17 19:35 Baby Aspirin 81 Mg Chew Administered 07/03/17 19:36 Dose 324 mg .ROUTE .STK-MED ONE Sodium Chloride 1,000 mls @ 999 mls/hr 07/03/17 19:29 07/03/17 19:38 Sodium Chloride 0.9% 1000 Ml IV 07/03/17 20:29 999 mls/hr .Q1H1M STA Administration Sodium Chloride Confirm 07/03/17 19:35 Sodium Chloride 0.9% 1000 Ml Administered 07/03/17 19:36 Dose 1,000 mls @ ud .ROUTE .STK-MED ONE Lab/Rad Data: Laboratory Result Diagrams 07/03/17 19:40 07/03/17 19:40 Laboratory Results 09/28/17 09/28/17 09/28/17 Range/Units 21:00 21:00 19:50 WBC (4.0-10.5) K/mm3 RBC (4.1-5.4) M/mm3 Hgb (12.0-16.0) gm/dl Hct (35-47) % MCV (78-100) fl MCH (26-32) pg MCHC (32-36) g/dl RDW (11.5-14.0) % Plt Count (150-450) K/mm3 MPV (6-9.5) fl Gran % (36.0-66.0) % Lymphocytes % (24.0-44.0) % Monocytes % (0.0-12.0) % Eosinophils % (0.00-5.0) % Basophils % (0.0-0.4) % Basophils # (0-0.4) ESR (0-20) mm/hr Sodium (136-145) mEq/L Potassium (3.5-5.1) mEq/L Chloride (98-107) mEq/L Carbon Dioxide (21-32) mEq/L Anion Gap (5-15) MEQ/L BUN (9-20) mg/dL Creatinine (0.55-1.30) mg/dl Estimated GFR ML/MIN Glucose (70-110) MG/DL Lactic Acid 1.2 (0.4-2.0) Calcium (8.5-10.1) mg/dL Magnesium (1.8-2.4) mg/dL Total Bilirubin (0.2-1.0) mg/dL AST (15-37) U/L ALT (12-78) U/L Alkaline Phosphatase (46-116) U/L Troponin I (0.000-0.056) ng/ml NT-Pro-B Natriuret Pep (0-125) pg/ml Serum Total Protein (6.4-8.2) gm/dL Albumin (3.4-5.0) g/dL Amylase (25-115) U/L Lipase (73-393) U/L Ur Collection Type CCMS Urine Color YELLOW (YELLOW) Urine Appearance SLIGHTLY CLOUDY (CLEAR) Urine pH 8.5 (5-6) Ur Specific [place] 1.010 (1.005-1.025) Urine Protein NEGATIVE (Negative) Urine Ketones NEGATIVE (NEGATIVE) Urine Blood NEGATIVE (0-5) John/ul Urine Nitrite NEGATIVE (NEGATIVE) Urine Bilirubin NEGATIVE (NEGATIVE) Urine Urobilinogen NORMAL (0-1) mg/dL Ur Leukocyte Esterase 1+ (NEGATIVE) Urine Microscopic RBC 0-2 (0-2) /HPF Urine Microscopic WBC 5-10 (0-5) /HPF Ur Epithelial Cells MODERATE (FEW) /HPF Urine Bacteria MANY (NEGATIVE) /HPF Urine Glucose NEGATIVE (NEGATIVE) mg/dL Urine Opiates Level NEG. (NEGATIVE) Ur Methadone NEG. (NEGATIVE) Urine Barbiturates NEG. (NEGATIVE) Ur Phencyclidine (PCP) NEG. (NEGATIVE) Urine Amphetamine NEG. (NEGATIVE) U Benzodiazepine Level NEG. (NEGATIVE) Urine Cocaine NEG. (NEGATIVE) Urine Marijuana (THC) NEG. (NEGATIVE) Monoscreen (Negative) Influenza Type A Ag (NEGATIVE) Influenza Type B Ag (NEGATIVE) RSV (PCR) (Negative) Streptococcus Screen (Negative) Specimen Received 07-03-17 2150 07/03/17 07/03/17 07/03/17 Range/Units 19:40 19:40 19:40 WBC (4.0-10.5) K/mm3 RBC (4.1-5.4) M/mm3 Hgb (12.0-16.0) gm/dl Hct (35-47) % MCV (78-100) fl MCH (26-32) pg MCHC (32-36) g/dl RDW (11.5-14.0) % Plt Count (150-450) K/mm3 MPV (6-9.5) fl Gran % (36.0-66.0) % Lymphocytes % (24.0-44.0) % Monocytes % (0.0-12.0) % Eosinophils % (0.00-5.0) % Basophils % (0.0-0.4) % Basophils # (0-0.4) ESR (0-20) mm/hr Sodium (136-145) mEq/L Potassium (3.5-5.1) mEq/L Chloride (98-107) mEq/L Carbon Dioxide (21-32) mEq/L Anion Gap (5-15) MEQ/L BUN (9-20) mg/dL Creatinine (0.55-1.30) mg/dl Estimated GFR ML/MIN Glucose (70-110) MG/DL Lactic Acid (0.4-2.0) Calcium (8.5-10.1) mg/dL Magnesium (1.8-2.4) mg/dL Total Bilirubin (0.2-1.0) mg/dL AST (15-37) U/L ALT (12-78) U/L Alkaline Phosphatase (46-116) U/L Troponin I (0.000-0.056) ng/ml NT-Pro-B Natriuret Pep (0-125) pg/ml Serum Total Protein (6.4-8.2) gm/dL Albumin (3.4-5.0) g/dL Amylase (25-115) U/L Lipase (73-393) U/L Ur Collection Type Urine Color (YELLOW) Urine Appearance (CLEAR) Urine pH (5-6) Ur Specific [place] (1.005-1.025) Urine Protein (Negative) Urine Ketones (NEGATIVE) Urine Blood (0-5) John/ul Urine Nitrite (NEGATIVE) Urine Bilirubin (NEGATIVE) Urine Urobilinogen (0-1) mg/dL Ur Leukocyte Esterase (NEGATIVE) Urine Microscopic RBC (0-2) /HPF Urine Microscopic WBC (0-5) /HPF Ur Epithelial Cells (FEW) /HPF Urine Bacteria (NEGATIVE) /HPF Urine Glucose (NEGATIVE) mg/dL Urine Opiates Level (NEGATIVE) Ur Methadone (NEGATIVE) Urine Barbiturates (NEGATIVE) Ur Phencyclidine (PCP) (NEGATIVE) Urine Amphetamine (NEGATIVE) U Benzodiazepine Level (NEGATIVE) Urine Cocaine (NEGATIVE) Urine Marijuana (THC) (NEGATIVE) Monoscreen NEGATIVE (Negative) Influenza Type A Ag NEGATIVE (NEGATIVE) Influenza Type B Ag NEGATIVE (NEGATIVE) RSV (PCR) NEGATIVE (Negative) Streptococcus Screen NEGATIVE (Negative) Specimen Received 07/03/17 07/03/17 07/03/17 Range/Units 19:40 19:40 19:40 WBC (4.0-10.5) K/mm3 RBC (4.1-5.4) M/mm3 Hgb (12.0-16.0) gm/dl Hct (35-47) % MCV (78-100) fl MCH (26-32) pg MCHC (32-36) g/dl RDW (11.5-14.0) % Plt Count (150-450) K/mm3 MPV (6-9.5) fl Gran % (36.0-66.0) % Lymphocytes % (24.0-44.0) % Monocytes % (0.0-12.0) % Eosinophils % (0.00-5.0) % Basophils % (0.0-0.4) % Basophils # (0-0.4) ESR 15 (0-20) mm/hr Sodium 140 (136-145) mEq/L Potassium 4.4 (3.5-5.1) mEq/L Chloride 105 (98-107) mEq/L Carbon Dioxide 23.8 (21-32) mEq/L Anion Gap 15.5 H (5-15) MEQ/L BUN 12 (9-20) mg/dL Creatinine 0.54 L (0.55-1.30) mg/dl Estimated GFR > 60 ML/MIN Glucose 100 (70-110) MG/DL Lactic Acid (0.4-2.0) Calcium 10.1 (8.5-10.1) mg/dL Magnesium 1.7 L (1.8-2.4) mg/dL Total Bilirubin 0.30 (0.2-1.0) mg/dL AST 8 L (15-37) U/L ALT 18 (12-78) U/L Alkaline Phosphatase 102 (46-116) U/L Troponin I < 0.017 (0.000-0.056) ng/ml NT-Pro-B Natriuret Pep 187 H (0-125) pg/ml Serum Total Protein 6.7 (6.4-8.2) gm/dL Albumin 3.8 (3.4-5.0) g/dL Amylase 28 (25-115) U/L Lipase 90 (73-393) U/L Ur Collection Type Urine Color (YELLOW) Urine Appearance (CLEAR) Urine pH (5-6) Ur Specific [place] (1.005-1.025) Urine Protein (Negative) Urine Ketones (NEGATIVE) Urine Blood (0-5) John/ul Urine Nitrite (NEGATIVE) Urine Bilirubin (NEGATIVE) Urine Urobilinogen (0-1) mg/dL Ur Leukocyte Esterase (NEGATIVE) Urine Microscopic RBC (0-2) /HPF Urine Microscopic WBC (0-5) /HPF Ur Epithelial Cells (FEW) /HPF Urine Bacteria (NEGATIVE) /HPF Urine Glucose (NEGATIVE) mg/dL Urine Opiates Level (NEGATIVE) Ur Methadone (NEGATIVE) Urine Barbiturates (NEGATIVE) Ur Phencyclidine (PCP) (NEGATIVE) Urine Amphetamine (NEGATIVE) U Benzodiazepine Level (NEGATIVE) Urine Cocaine (NEGATIVE) Urine Marijuana (THC) (NEGATIVE) Monoscreen (Negative) Influenza Type A Ag (NEGATIVE) Influenza Type B Ag (NEGATIVE) RSV (PCR) (Negative) Streptococcus Screen (Negative) Specimen Received 07/03/17 Range/Units 19:40 WBC 16.8 H (4.0-10.5) K/mm3 RBC 5.12 (4.1-5.4) M/mm3 Hgb 13.5 (12.0-16.0) gm/dl Hct 41.7 (35-47) % MCV 81.4 (78-100) fl MCH 26.4 (26-32) pg MCHC 32.4 (32-36) g/dl RDW 15.6 H (11.5-14.0) % Plt Count 248 (150-450) K/mm3 MPV 11.9 H (6-9.5) fl Gran % 82.4 H (36.0-66.0) % Lymphocytes % 10.8 L (24.0-44.0) % Monocytes % 6.5 (0.0-12.0) % Eosinophils % 0.2 (0.00-5.0) % Basophils % 0.1 (0.0-0.4) % Basophils # 0.02 (0-0.4) ESR (0-20) mm/hr Sodium (136-145) mEq/L Potassium (3.5-5.1) mEq/L Chloride (98-107) mEq/L Carbon Dioxide (21-32) mEq/L Anion Gap (5-15) MEQ/L BUN (9-20) mg/dL Creatinine (0.55-1.30) mg/dl Estimated GFR ML/MIN Glucose (70-110) MG/DL Lactic Acid (0.4-2.0) Calcium (8.5-10.1) mg/dL Magnesium (1.8-2.4) mg/dL Total Bilirubin (0.2-1.0) mg/dL AST (15-37) U/L ALT (12-78) U/L Alkaline Phosphatase (46-116) U/L Troponin I (0.000-0.056) ng/ml NT-Pro-B Natriuret Pep (0-125) pg/ml Serum Total Protein (6.4-8.2) gm/dL Albumin (3.4-5.0) g/dL Amylase (25-115) U/L Lipase (73-393) U/L Ur Collection Type Urine Color (YELLOW) Urine Appearance (CLEAR) Urine pH (5-6) Ur Specific [place] (1.005-1.025) Urine Protein (Negative) Urine Ketones (NEGATIVE) Urine Blood (0-5) John/ul Urine Nitrite (NEGATIVE) Urine Bilirubin (NEGATIVE) Urine Urobilinogen (0-1) mg/dL Ur Leukocyte Esterase (NEGATIVE) Urine Microscopic RBC (0-2) /HPF Urine Microscopic WBC (0-5) /HPF Ur Epithelial Cells (FEW) /HPF Urine Bacteria (NEGATIVE) /HPF Urine Glucose (NEGATIVE) mg/dL Urine Opiates Level (NEGATIVE) Ur Methadone (NEGATIVE) Urine Barbiturates (NEGATIVE) Ur Phencyclidine (PCP) (NEGATIVE) Urine Amphetamine (NEGATIVE) U Benzodiazepine Level (NEGATIVE) Urine Cocaine (NEGATIVE) Urine Marijuana (THC) (NEGATIVE) Monoscreen (Negative) Influenza Type A Ag (NEGATIVE) Influenza Type B Ag (NEGATIVE) RSV (PCR) (Negative) Streptococcus Screen (Negative) Specimen Received - Departure Time of Disposition: 22:03 Departure Disposition: Home Clinical Impression: UTI, CHEST PAIN, MILD HYPOMAGNESEMIA Condition: Stable Critical Care Time: No Referrals: CHASE LEE [Primary Care Provider] - Instructions: Vomiting -- Adult, Chest Pain, Urinary Tract Infection (UTI) Additional Instructions: FOLLOW UP WITH PRIVATE DOCTOR TOMORROW. Prescriptions: Ondansetron [Zofran Odt] 4 mg PO Q4H PRN PRN #14 tab.rapdis PRN Reason: Nausea/Vomiting Nitrofurantoin Macro 100 mg [Macrobid 100MG Capsule] 100 mg PO BID #20 capsule
[2017-07-03] MEDS ORDERED: Sodium Chloride 0.9% 1000 ML 1,000 ML ONE (19:35)
[2017-07-03] MEDS ORDERED: BABY ASPIRIN 81 MG CHEW ONE (19:35)
[2017-07-03 19:48] LABS: BASOPHIL % 0.1 % (0.0-0.4); Eosinophil % 0.2 % (0.00-5.0); Granulocytes % 82.4 % (36.0-66.0); Lymphocytes % 10.8 % (24.0-44.0); Mean Cell Volume 81.4 fl (78-100); Mean Corpuscular Hemoglobin 26.4 pg (26-32); Mean Platelet Volume 11.9 fl (6-9.5); Monocytes % 6.5 % (0.0-12.0); Platelet Count 248 K/mm3 (150-450); Red Blood Count 5.12 M/mm3 (4.1-5.4); Red Cell Distribution Width 15.6 % (11.5-14.0); White Blood Count 16.8 K/mm3 (4.0-10.5)
[2017-07-03 20:21] LABS: ALBUMIN 3.8 g/dL (3.4-5.0); ALKALINE PHOSPHATASE 102 U/L (46-116); ANION GAP 15.5 MEQ/L (5-15); BLOOD UREA NITROGEN 12 mg/dL (9-20); CHLORIDE 105 mEq/L (98-107); Carbon Dioxide 23.8 mEq/L (21-32); Glucose 100 MG/DL (70-110); LIPASE 90 U/L (73-393); MAGNESIUM 1.7 mg/dL (1.8-2.4); Potassium 4.4 mEq/L (3.5-5.1); SGOT/AST 8 U/L (15-37); SGPT/ALT 18 U/L (12-78); SODIUM 140 mEq/L (136-145); Total Protein 6.7 gm/dL (6.4-8.2)
[2017-07-03 21:50] LABS: Bacteria MANY /HPF (NEGATIVE); Bilirubin NEGATIVE (NEGATIVE); Blood NEGATIVE Ery/ul (0-5); COMPLETE URINE MICROSCOPIC? YES; Collection Type CCMS; Epithelial Cells MODERATE /HPF (FEW); Glucose NEGATIVE (NEGATIVE); Leukocyte Esterase 1+ (NEGATIVE)
[2017-07-03 21:51] LABS: ADD URINE CULTURE? YES (NO)
[2017-07-03] MEDS ORDERED: ROCEPHIN 1 Gm-D5w 50 ml Bag** 1 G/50 ML IVPB IV STA (21:58)
[2017-07-03] MEDS ORDERED: MAG-OX 400 ONE (21:59)
[2017-07-03] MEDS ORDERED: MAG-OX 400 PO SCH (22:00)
[2017-07-03 22:03] VITALS: O2SAT 94
[2017-07-03] MEDS ORDERED: Hydromorphone 1 mg/ml Ampule IV ONE (22:04)
[2017-07-03] MEDS ORDERED: ROCEPHIN 1 Gm-D5w 50 ml Bag** 1 G/50 ML IVPB IV ONE (22:04)
[2017-07-03] MEDS ORDERED: Phenergan 25 MG INJ IV ONE (22:04)
[2017-07-03] MEDS ORDERED: Phenergan 25 MG INJ ONE (22:10)
[2017-07-03] MEDS ORDERED: Hydromorphone 1 mg/ml Ampule ONE (22:10)
[2017-07-03 22:37] VITALS: BP 113/67; PULSE 105
--- NOTE | 2017-07-04 20:57 | XRAY ---
Exam: Two-view chest from 07/03/2017. Comparison: Two-view chest from 11/13/2015. Indication: Cough, fever. Findings: Upright PA and lateral chest films were obtained. The heart size and contour are normal. The kris and mediastinal structures appear unremarkable. A small calcified granuloma is again seen within the central right lower lung field. No air space infiltrates, vascular congestion, pneumothorax, or pleural fluid is seen. No acute osseous process is seen. Surgical clips consistent with prior cholecystectomy are seen within the right upper quadrant. Impression: 1. No infiltrates to suggest focal pneumonia or other acute cardiopulmonary disease is seen. The findings are unchanged from 11/13/2015.
== END 2017-07-03 22:42 | disposition home or self-care (01) ==
LOC: ED 19:01
DX: N39.0 Urinary tract infection, site not specified (principal); R07.89 Other chest pain; E83.42 Hypomagnesemia; R51 Headache; R05 Cough; R11.10 Vomiting, unspecified; E78.00 Pure hypercholesterolemia, unspecified; I10 Essential (primary) hypertension; J44.9 Chronic obstructive pulmonary disease, unspecified; E11.9 Type 2 diabetes mellitus without complications
CPT/HCPCS: 36000; 36415; 71020; 80053; 80307; 81000; 82150; 83605; 83690; 83735; 83880; 84484; 85025; 85652; 86308; 87070; 87077; 87086; 87186; 87430; 87631; 93005; 93041; 96360; 96374; 96375; 99284; J0696; J1170; J2550; A9270-GY

== ENCOUNTER 2018-06-23 20:09 | Emergency (ER) | payer OTHER ==
[2018-06-23] MEDS ORDERED: Hydromorphone 1 mg/ml Ampule IM ONE (20:48)
[2018-06-23] MEDS ORDERED: Phenergan 25 MG INJ IM ONE (20:48)
[2018-06-23] MEDS ORDERED: Phenergan 25 MG INJ ONE (20:51)
[2018-06-23] MEDS ORDERED: Hydromorphone 1 mg/ml Ampule ONE (20:52)
[2018-06-23] MEDS: Hydromorphone 1 mg/ml Ampule IV ONE ×2 (20:59→21:03)
--- NOTE | 2018-06-23 21:03 | ERPHSYRPT ---
- History of Present Illness Patient Subjective Stated Complaint: no appetite, N&V, headache, sinus stuffiness Triage Nursing Assessment: Pt c/o of N&V, headache, nasal stuffiness, abdominal pain, which all began yesterday, unable to eat due to vomiting, diminished lung sounds, tachycardic, BP 152/95, Physician History: 52 y/o white female presents with one day h/o n/v and body aches. pt noticed mild headache 2 days ago but this has worsened into her usual migraine headache. no diarrhea. no neck pain, no abd pain. no sore throat and no earaches. pt has a chronic cough but that is no different. pt has mild nasal congestionpt is only really concerned about the migraine headache. the rest in her mind is flu and she will deal with that at home. Timing/Duration: yesterday (except headache began 2 days ago.) Head Pain Location: frontal Severity of Pain-Max: moderate Severity of Pain-Current: moderate Recent Head Trauma: no recent headache/trauma, chronic headaches Modifying Factors: Improves With: exposure to light Associated Symptoms: nausea/vomiting, nasal congestion, No confusion, No dizziness, No fatigue, No fever/chills, No loss of consciousness, No neck pain Previous symptoms: same symptoms as today Allergies/Adverse Reactions: Penicillins Allergy (Unknown, Verified 06/23/18 20:27) Rash amoxicillin Adverse Reaction (Intermediate, Verified 06/23/18 20:27) Rash Home Medications: Nadolol 80 mg PO DAILY 06/23/18 [History] cloNIDine [Clonidine] 1 patch SUBDERMAL WEEKLY 06/23/18 [History] Hx Tetanus, Diphtheria Vaccination/Date Given: No Hx Influenza Vaccination/Date Given: No Hx Pneumococcal Vaccination/Date Given: No - Review of Systems Constitutional: No Symptoms, No Fever, No Chills Eyes: No Symptoms, Eye Pain Ears, Nose, & Throat: Nose Congestion, No Ear Pain, No Mouth Pain, No Painful Swallowing Respiratory: Cough (chronic), No Dyspnea, No Stridor, No Wheezing Cardiac: No Symptoms, No Chest Pain, No Palpitations, No Syncope Abdominal/Gastrointestinal: Nausea, Vomiting, No Abdominal Pain, No Diarrhea Genitourinary Symptoms: No Symptoms, No Dysuria, No Frequency, No Hematuria Musculoskeletal: Myalgias, No Back Pain, No Neck Pain, No Fall, No Injury Skin: No Symptoms Neurological: Headache (typical migraine), No Dizziness, No Lethargy, No Paralysis, No Parasthesia Psychological: No Symptoms, No Alcohol Abuse, No Drug Abuse, No Anxiety Endocrine: No Symptoms Hematologic/Lymphatic: No Symptoms Immunological/Allergic: No Symptoms All Other Systems: Reviewed and Negative - Past Medical History Pertinent Past Medical History: Yes Neurological History: Migraines ENT History: No Pertinent History Cardiac History: No Pertinent History, High Cholesterol, Hypertension Respiratory History: COPD Endocrine Medical History: Diabetes Type II Musculoskeletal History: No Pertinent History GI Medical History: No Pertinent History History: No Pertinent History Psycho-Social History: No Pertinent History Female Reproductive Disorders: Menstrual Problems - Past Surgical History Past Surgical History: Yes Neuro Surgical History: No Pertinent History Cardiac: No Pertinent History Respiratory: No Pertinent History Gastrointestinal: Cholecystectomy Genitourinary: No Pertinent History Musculoskeletal: No Pertinent History Female Surgical History: Hysterectomy, Section, Tubal Ligation Other Surgical History: - Social History Smoking Status: Current every day smoker How long have you smoked: 20 Exposure to second hand smoke: Yes Drug Use: none Patient Lives Alone: No Significant Family History: cancer - Female History Hx Now: No (hysterectomy) - Nursing Vital Signs Nursing Vital Signs: Initial Vital Signs Temperature 98.1 F 06/23/18 20:18 Pulse Rate 113 H 06/23/18 20:18 Blood Pressure 152/95 06/23/18 20:18 O2 Sat by Pulse Oximetry 96 06/23/18 20:18 Pain Scale Pain Intensity 9 - Physical Exam General Appearance: mild distress, alert, anxiety Eye Exam: PERRL/EOMI Ears, Nose, Throat Exam: normal ENT inspection, TMs normal, moist mucous membranes Neck Exam: normal inspection, non-tender, supple, full range of motion Respiratory Exam: normal breath sounds, lungs clear, airway intact, No chest tenderness, No respiratory distress, No accessory muscle use, No rhonchi, No wheezing, No stridor Cardiovascular Exam: regular rate/rhythm, normal heart sounds, normal peripheral pulses Gastrointestinal/Abdominal Exam: soft, normal bowel sounds, No tenderness, No guarding, No rebound Back Exam: normal inspection, normal range of motion, No CVA tenderness, No vertebral tenderness Extremity Exam: normal inspection, normal range of motion, pelvis stable Mental Status Exam: alert, oriented x 3, 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 Exam: normal hearing, normal speech, PERRL Coordination/Gait Exam: normal finger to nose, normal gait, normal cerebellar function Motor/Sensory Exam: no motor deficit, no sensory deficit, no pronator drift Skin Exam: normal color, warm, dry Lymphatic Exam: No adenopathy SpO2 Interpretation: normal SpO2: 96 Oxygen Delivery: Room Air - Course Nursing assessment & vital signs reviewed: Yes Ordered Tests: Medication Summary Discontinued Medications Generic Name Dose Route Start Last Admin Trade Name Freq PRN Reason Stop Dose Admin Hydromorphone HCl 0.5 mg 06/23/18 20:48 Hydromorphone 1 Mg/Ml Ampule IV 06/23/18 20:49 STAT ONE Hydromorphone HCl 0.5 mg 06/23/18 20:48 Hydromorphone 1 Mg/Ml Ampule IM 06/23/18 20:49 STAT ONE Hydromorphone HCl Confirm 06/23/18 20:52 Hydromorphone 1 Mg/Ml Ampule Administered 06/23/18 20:53 Dose 1 mg .ROUTE .STK-MED ONE Promethazine HCl 12.5 mg 06/23/18 20:48 Phenergan 25 Mg Inj IM 06/23/18 20:49 STAT ONE Promethazine HCl Confirm 06/23/18 20:51 Phenergan 25 Mg Inj Administered 06/23/18 20:52 Dose 25 mg .ROUTE .STK-MED ONE - Progress Progress: improved, re-examined Air Movement: good Blood Culture(s) Obtained: No Antibiotics given: No Counseled pt/family regarding: diagnosis, need for follow-up - Departure Time of Disposition: 21:06 Departure Disposition: Home Clinical Impression: Migraine headache Condition: Stable Critical Care Time: No Referrals: CHASE LEE [Primary Care Provider] - Additional Instructions: drink plenty of fluids. follow up with primary doctor for further management Prescriptions: Ondansetron HCl [Zofran] 4 mg PO TID PRN #10 tablet PRN Reason: Nausea/Vomiting
[2018-06-23 21:05] VITALS: BP 123/81; PULSE 108
[2018-06-23 21:09] VITALS: O2SAT 96
== END 2018-06-23 21:14 | disposition home or self-care (01) ==
LOC: ED 20:09
DX: G43.909 Migraine, unspecified, not intractable, without status migrainosus (principal); R11.2 Nausea with vomiting, unspecified; R09.81 Nasal congestion; Z79.899 Other long term (current) drug therapy
CPT/HCPCS: 96372; 99284; J1170; J2550

== ENCOUNTER 2018-10-12 18:42 | Emergency (ER) | payer OTHER ==
[2018-10-12] MEDS ORDERED: Phenergan 25 MG INJ IM ONE (19:09)
[2018-10-12] MEDS ORDERED: Hydromorphone 1 mg/ml Ampule IM ONE (19:09)
[2018-10-12] MEDS ORDERED: Phenergan 25 MG INJ ONE (19:12)
[2018-10-12] MEDS ORDERED: Hydromorphone 1 mg/ml Ampule ONE (19:12)
--- NOTE | 2018-10-12 19:13 | ERPHSYRPT ---
- History of Present Illness Time Seen by Provider: 10/12/18 19:10 Source: patient Exam Limitations: no limitations Patient Subjective Stated Complaint: Pt states "I have had a migraine for 3 days and my migraine med is not working." Triage Nursing Assessment: Pt alert and oriented X 3, skin pwd. Pt ambulates with an upright steady gait, able to speak in clear full sentences. Pt in no apparent respiratory distress. PT squinting and covering eyes. pt has a blood pressure patch on left arm. Physician History: 53-year-old white female with history of migraines arrives with complaint of photophobia frontal headache nausea symptoms for 3 days no fevers denies other complaints. Past medical history includes migraines, hyperlipidemia, high blood pressure, COPD, diabetes type 2, menstrual problems. Past surgical history includes cholecystectomy, hysterectomy, , tubal ligation Social history positive for tobacco use patient denies alcohol or illicit drug use Timing/Duration: day(s) (3 days) Modifying Factors: Improves With: nothing Associated Symptoms: nausea, headaches, No vomiting, No abdominal pain, No shortness of breath, No heartburn, No diaphoresis, No cough, No chills, No chest pain, No fever, No loss of appetite, No malaise, No rash, No syncope, No seizure Allergies/Adverse Reactions: Penicillins Allergy (Unknown, Verified 06/23/18 20:27) Rash amoxicillin Adverse Reaction (Intermediate, Verified 06/23/18 20:27) Rash Home Medications: Nadolol 80 mg PO DAILY 06/23/18 [History] cloNIDine [Clonidine] 1 patch SUBDERMAL WEEKLY 06/23/18 [History] Hx Tetanus, Diphtheria Vaccination/Date Given: Yes Hx Influenza Vaccination/Date Given: Yes Hx Pneumococcal Vaccination/Date Given: Yes Immunizations Up to Date: Yes - Review of Systems Constitutional: No Fever, No Chills Eyes: Photophobia, No Discharge, No Eye Pain, No Eye Redness, No Itchy, No Tearing, No Vision Changes, No Double Vision, No Foreign Body Sensation Ears, Nose, & Throat: No Ear Pain, No Ear Discharge, No Hearing Changes, No Tinnitus, No Nose Pain, No Nose Congestion, No Nose Discharge, No Sinus Drainage , No Epistaxis, No Mouth Pain, No Mouth Swelling, No Loose Teeth, No Throat Pain , No Throat Swelling, No Hoarse, No Painful Swallowing, No Snoring, No Stridor Respiratory: No Cough, No Dyspnea Cardiac: No Chest Pain, No Edema, No Syncope Abdominal/Gastrointestinal: Nausea, No Abdominal Pain, No Vomiting, No Diarrhea Genitourinary Symptoms: No Dysuria Musculoskeletal: No Back Pain, No Neck Pain Skin: No Rash Neurological: No Symptoms, Headache, No Dizziness, No Focal Weakness, No Gait Changes, No Irritability, No Lethargy, No Paralysis, No Parasthesia, No Seizure , No Sensory Changes, No Speech Changes, No Tics, No Tremors, No Vertigo Psychological: No Symptoms Endocrine: No Symptoms All Other Systems: Reviewed and Negative - Past Medical History Pertinent Past Medical History: Yes Neurological History: Migraines ENT History: No Pertinent History Cardiac History: Hypertension Respiratory History: No Pertinent History Endocrine Medical History: No Pertinent History Musculoskeletal History: Arthritis GI Medical History: No Pertinent History History: No Pertinent History Psycho-Social History: No Pertinent History Female Reproductive Disorders: Menstrual Problems - Past Surgical History Past Surgical History: Yes Neuro Surgical History: No Pertinent History Cardiac: No Pertinent History Respiratory: No Pertinent History Gastrointestinal: Cholecystectomy Genitourinary: No Pertinent History Musculoskeletal: No Pertinent History Female Surgical History: Hysterectomy, Section, Tubal Ligation Other Surgical History: - Social History Smoking Status: Current every day smoker How long have you smoked: 31 years Exposure to second hand smoke: Yes Drug Use: none Patient Lives Alone: No Significant Family History: cancer - Female History Hx Last Menstrual Period: partial hysterectomy Hx Now: No - Nursing Vital Signs Nursing Vital Signs: Initial Vital Signs Temperature 98.8 F 10/12/18 18:47 Pulse Rate 68 10/12/18 18:47 Respiratory Rate 16 10/12/18 18:47 Blood Pressure 170/87 10/12/18 18:47 O2 Sat by Pulse Oximetry 96 10/12/18 18:47 Pain Scale Pain Intensity 7 - Physical Exam General Appearance: mild distress Eye Exam: PERRL/EOMI, eyes nml inspection, photophobia Ears, Nose, Throat Exam: normal ENT inspection, TMs normal, pharynx normal, moist mucous membranes Neck Exam: normal inspection, non-tender, supple, full range of motion Respiratory Exam: normal breath sounds, lungs clear, No respiratory distress Cardiovascular Exam: regular rate/rhythm, normal heart sounds, normal peripheral pulses, capillary refill <2 sec Gastrointestinal/Abdomen Exam: soft, normal bowel sounds, No tenderness, No mass Back Exam: normal inspection, normal range of motion, No CVA tenderness, No vertebral tenderness Extremity Exam: normal inspection, normal range of motion, pelvis stable Neurologic 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: 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, 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 3, 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, 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 as tested, normal mood/affect, nml cerebellar function, nml station & gait, sensation nml, No motor deficits Skin Exam: normal color, warm, dry, No rash Lymphatic Exam: No adenopathy SpO2 Interpretation: normal (96%) SpO2: 96 - Course Nursing assessment & vital signs reviewed: Yes Ordered Tests: Medication Summary Discontinued Medications Generic Name Dose Route Start Last Admin Trade Name Freq PRN Reason Stop Dose Admin Hydromorphone HCl 0.5 mg 10/12/18 19:09 10/12/18 19:20 Hydromorphone 1 Mg/Ml Ampule IM 10/12/18 19:10 0.5 mg STAT ONE Administration Hydromorphone HCl Confirm 10/12/18 19:12 Hydromorphone 1 Mg/Ml Ampule Administered 10/12/18 19:13 Dose 1 mg .ROUTE .STK-MED ONE Ketorolac Tromethamine 60 mg 10/12/18 20:32 10/12/18 20:35 Toradol 30 Mg Injection IM 10/12/18 20:33 60 mg STAT ONE Administration Ketorolac Tromethamine Confirm 10/12/18 20:34 Toradol 30 Mg Injection Administered 10/12/18 20:35 Dose 60 mg .ROUTE .STK-MED ONE Promethazine HCl 25 mg 10/12/18 19:09 10/12/18 19:20 Phenergan 25 Mg Inj IM 10/12/18 19:10 25 mg STAT ONE Administration Promethazine HCl Confirm 10/12/18 19:12 Phenergan 25 Mg Inj Administered 10/12/18 19:13 Dose 25 mg .ROUTE .STK-MED ONE - Progress Progress: improved Progress Note: 10/12/18 20:34 Patient feeling better after hydromorphone 0.5 mg and Phenergan. Still rates headache at 6 out of 10. Will give patient Toradol 60 mg IM. Plan on discharge. 10/12/18 21:02 Patient feeling better wants to go home we will release. - Departure Time of Disposition: 21:01 Departure Disposition: Home Clinical Impression: Migraine headache Qualifiers: Migraine type: unspecified Status migrainosus presence: without status migrainosus Intractability: not intractable Qualified Code(s): G43.909 - Migraine, unspecified, not intractable, without status migrainosus Condition: Fair Critical Care Time: No Referrals: CHASE LEE [Primary Care Provider] - Additional Instructions: Return home .. Rest in a dark quiet room. Follow-up with your family doctor if symptoms recurrent. Return for acute distress or for severe symptoms.
[2018-10-12] MEDS ORDERED: TORAdol 30 mg Injection IM ONE (20:32)
[2018-10-12] MEDS ORDERED: TORAdol 30 mg Injection ONE (20:34)
[2018-10-12 20:37] VITALS: O2SAT 96
[2018-10-12 21:12] VITALS: BP 184/95; PULSE 88
== END 2018-10-12 21:14 | disposition home or self-care (01) ==
LOC: ED 18:42
DX: G43.909 Migraine, unspecified, not intractable, without status migrainosus (principal); Z79.899 Other long term (current) drug therapy
CPT/HCPCS: 96372; 99284; J1170; J1885; J2550

== ENCOUNTER 2018-11-06 19:58 | Emergency (ER) | payer OTHER ==
[2018-11-06] MEDS ORDERED: Compazine 10 MG/2 ML IV ONE (20:30)
[2018-11-06] MEDS ORDERED: TORAdol 30 mg Injection IV ONE (20:30)
[2018-11-06] MEDS ORDERED: Sodium Chloride 0.9% 1000 ML 1,000 ML IV SCH (20:30)
[2018-11-06] MEDS ORDERED: BENADRYL 50 MG/ML IV ONE (20:30)
--- NOTE | 2018-11-06 20:37 | ERPHSYRPT ---
- History of Present Illness Time Seen by Provider: 11/06/18 20:25 Source: patient Exam Limitations: clinical condition Patient Subjective Stated Complaint: Headache/migraine Triage Nursing Assessment: Patient ambulated back to ED and transferred self to bed. Patient A+O X 3. Patient skin pink, warm and dry. Patient complains of waking up with a a migraine headache at this time 07/15. Patient's lungs clear a /p emily. O2 95% on room air. Patient's states she has a hx of migraines. Patient states she has been vomiting everything she eats or drinks. Physician History: PATIENT WITH A HISTORY OF MAGRAINE HEADACHES X 20 YEARS, BIMONTHLY WITH ONSET FOR GENERALIZED HEADACHE X 3 DAYS ASSOCIATED WITH PHOTOPHOBIA AND NAUSEA. DENIES BLURRED VISION, NECK STIFFNESS. Timing/Duration: day(s) Quality: throbbing Head Pain Location: global Severity of Pain-Max: moderate Severity of Pain-Current: moderate Recent Head Trauma: occasional headaches Modifying Factors: Improves With: exposure to light Associated Symptoms: denies symptoms Previous symptoms: same symptoms as today Allergies/Adverse Reactions: Penicillins Allergy (Unknown, Verified 11/06/18 20:05) Rash amoxicillin Adverse Reaction (Intermediate, Verified 11/06/18 20:05) Rash Home Medications: Nadolol 80 mg PO DAILY 06/23/18 [History] cloNIDine [Clonidine] 1 patch SUBDERMAL WEEKLY 06/23/18 [History] Hx Tetanus, Diphtheria Vaccination/Date Given: Yes Hx Influenza Vaccination/Date Given: Yes Hx Pneumococcal Vaccination/Date Given: Yes Immunizations Up to Date: Yes - Review of Systems Constitutional: No Fever, No Chills Eyes: No Symptoms Ears, Nose, & Throat: No Symptoms Respiratory: No Symptoms, No Cough, No Dyspnea Cardiac: No Symptoms, No Chest Pain, No Edema, No Syncope Abdominal/Gastrointestinal: No Symptoms, No Abdominal Pain, No Nausea, No Vomiting, No Diarrhea Genitourinary Symptoms: No Dysuria Musculoskeletal: No Symptoms, No Back Pain, No Neck Pain Skin: No Symptoms, No Rash Neurological: Headache, No Dizziness, No Focal Weakness, No Sensory Changes Psychological: No Symptoms Endocrine: No Symptoms All Other Systems: Reviewed and Negative - Past Medical History Pertinent Past Medical History: Yes Neurological History: Migraines ENT History: No Pertinent History Cardiac History: Hypertension Respiratory History: No Pertinent History Endocrine Medical History: No Pertinent History Musculoskeletal History: Arthritis GI Medical History: No Pertinent History History: No Pertinent History Psycho-Social History: No Pertinent History Female Reproductive Disorders: No Pertinent History - Past Surgical History Past Surgical History: Yes Neuro Surgical History: No Pertinent History Cardiac: No Pertinent History Respiratory: No Pertinent History Gastrointestinal: Cholecystectomy Genitourinary: No Pertinent History Musculoskeletal: No Pertinent History Female Surgical History: Hysterectomy, Section, Tubal Ligation Other Surgical History: - Social History Smoking Status: Former smoker How long have you smoked: 31 years Exposure to second hand smoke: Yes Drug Use: none Patient Lives Alone: No Significant Family History: cancer - Female History Hx Last Menstrual Period: Partial hysterectomy Hx Now: No - Nursing Vital Signs Nursing Vital Signs: Initial Vital Signs Temperature 97.7 F 11/06/18 20:06 Pulse Rate 106 H 11/06/18 20:06 Respiratory Rate 18 11/06/18 20:06 Blood Pressure 151/128 11/06/18 20:06 O2 Sat by Pulse Oximetry 96 11/06/18 20:06 Pain Scale Pain Intensity 10 - Physical Exam General Appearance: mild distress Eye Exam: PERRL/EOMI Ears, Nose, Throat Exam: normal ENT inspection, moist mucous membranes Neck Exam: normal inspection, non-tender, supple, full range of motion, No meningismus Respiratory Exam: normal breath sounds Cardiovascular Exam: regular rate/rhythm, normal heart sounds Gastrointestinal/Abdominal Exam: soft, pulsatile mass, No tenderness, No distention Back Exam: normal inspection, normal range of motion Mental Status Exam: alert, oriented x 3 Coordination/Gait Exam: normal gait, normal cerebellar function SpO2: 96 Ordered Tests: Active Orders 24 hr Category Date Time Status IV Insertion STAT Care 11/06/18 20:30 Active Medication Summary Generic Name Dose Route Start Last Admin Trade Name Freq PRN Reason Stop Dose Admin Sodium Chloride 1,000 mls @ 100 mls/hr 11/06/18 20:30 11/06/18 20:49 Sodium Chloride 0.9% 1000 Ml IV 12/06/18 20:29 100 mls/hr .Q10H BOSSMAN Administration Discontinued Medications Generic Name Dose Route Start Last Admin Trade Name Freq PRN Reason Stop Dose Admin Hydrocodone Bitart/Acetaminophen 1 tab 11/06/18 22:08 [place] 5/325 Mg PO 11/06/18 22:09 SENT HOME W/ PATIENT ONE Diphenhydramine HCl 25 mg 11/06/18 20:30 11/06/18 20:46 Benadryl 50 Mg/Ml IV 11/06/18 20:31 25 mg STAT ONE Administration Diphenhydramine HCl Confirm 11/06/18 20:42 Benadryl 50 Mg/Ml Administered 11/06/18 20:43 Dose 50 mg .ROUTE .STK-MED ONE Hydromorphone HCl 1 mg 11/06/18 21:21 Hydromorphone 1 Mg/Ml Ampule IV 11/06/18 21:22 STAT ONE Hydromorphone HCl Confirm 11/06/18 21:29 Hydromorphone 1 Mg/Ml Ampule Administered 11/06/18 21:30 Dose 1 mg .ROUTE .STK-MED ONE Ketorolac Tromethamine 30 mg 11/06/18 20:30 11/06/18 20:48 Toradol 30 Mg Injection IV 11/06/18 20:31 30 mg STAT ONE Administration Ketorolac Tromethamine Confirm 11/06/18 20:42 Toradol 30 Mg Injection Administered 11/06/18 20:43 Dose 30 mg .ROUTE .STK-MED ONE Prochlorperazine Edisylate 10 mg 11/06/18 20:30 11/06/18 20:45 Compazine 10 Mg/2 Ml IV 11/06/18 20:31 10 mg STAT ONE Administration Prochlorperazine Edisylate Confirm 11/06/18 20:42 Compazine 10 Mg/2 Ml Administered 11/06/18 20:43 Dose 10 mg .ROUTE .STK-MED ONE - Progress Progress: improved Progress Note: 11/06/18 20 IV NORMAL SALLINE 50ML/HR, TORADOL 30MG, COMPAZINE 10MG, BENADRYL 25MG IV 11/06/18 22:09 11/06/18 22:11 - Departure Time of Disposition: 22:15 Departure Disposition: Home Clinical Impression: MIGRAINE CEPHALGIA Condition: Stable Critical Care Time: No Referrals: CHASE LEE [Primary Care Provider] - Additional Instructions: PERCOGESIC 1 TABLET EVERY 4-6 HOURS NEEDED. FOLLOWUP WITH YOUR PRIMARY CARE PROVIDER AND NEUROLOGIST IN 1 WEEK. Prescriptions: Acetaminophen/Diphenhydramine [Percogesic 325-12.5 mg Tablet] 1 each PO Q4- 6HPRN PRN #15 tablet PRN Reason: Pain
[2018-11-06] MEDS ORDERED: BENADRYL 50 MG/ML ONE (20:42)
[2018-11-06] MEDS ORDERED: Compazine 10 MG/2 ML ONE (20:42)
[2018-11-06] MEDS ORDERED: Sodium Chloride 0.9% 1000 ML 1,000 ML ONE (20:42)
[2018-11-06] MEDS ORDERED: TORAdol 30 mg Injection ONE (20:42)
[2018-11-06] MEDS ORDERED: Hydromorphone 1 mg/ml Ampule IV ONE (21:21)
[2018-11-06] MEDS ORDERED: Hydromorphone 1 mg/ml Ampule ONE (21:29)
[2018-11-06] MEDS ORDERED: NORCO 5/325 MG PO ONE (22:08)
[2018-11-06 22:22] VITALS: BP 138/96; PULSE 102; O2SAT 94
== END 2018-11-06 22:29 | disposition home or self-care (01) ==
LOC: ED 19:58
DX: G43.909 Migraine, unspecified, not intractable, without status migrainosus (principal); M19.90 Unspecified osteoarthritis, unspecified site
CPT/HCPCS: 96360; 96361; 96374; 96375; 99284; J1170; J1200; J1885

== ENCOUNTER 2018-12-10 16:52 | Emergency (ER) | payer OTHER ==
--- NOTE | 2018-12-10 16:58 | ERPHSYRPT ---
- History of Present Illness Time Seen by Provider: 12/10/18 16:57 Source: patient Exam Limitations: no limitations Physician History: 53 y/o white female presents with your typical generalized migraine headache. began at 1430. pt gave herself an injection of unknown prescribed antimigraine medication and it did not work. pt has been seen in this ED often for same complaint. no the worst headache she has ever had Timing/Duration: today (at 1430), worse Quality: aching, throbbing Head Pain Location: global Severity of Pain-Max: moderate Severity of Pain-Current: moderate Recent Head Trauma: no recent headache/trauma, chronic headaches Modifying Factors: Improves With: exposure to light, movement, noise Associated Symptoms: nausea/vomiting, sensitive to light, No confusion, No dizziness, No light-headedness, No stiff neck, No vision changes, No visual disturbance Previous symptoms: same symptoms as today Allergies/Adverse Reactions: Penicillins Allergy (Unknown, Verified 12/10/18 17:29) Rash amoxicillin Adverse Reaction (Intermediate, Verified 12/10/18 17:29) Rash Home Medications: Nadolol 80 mg PO DAILY 06/23/18 [History] cloNIDine [Clonidine] 1 patch SUBDERMAL WEEKLY 06/23/18 [History] Hx Tetanus, Diphtheria Vaccination/Date Given: Yes Hx Influenza Vaccination/Date Given: Yes Hx Pneumococcal Vaccination/Date Given: Yes - Review of Systems Constitutional: No Symptoms Eyes: Photophobia Ears, Nose, & Throat: No Symptoms Respiratory: No Symptoms Cardiac: No Symptoms Abdominal/Gastrointestinal: No Symptoms Genitourinary Symptoms: No Symptoms Musculoskeletal: No Symptoms Skin: No Symptoms Neurological: Headache Psychological: No Symptoms Endocrine: No Symptoms Hematologic/Lymphatic: No Symptoms Immunological/Allergic: No Symptoms All Other Systems: Reviewed and Negative - Past Medical History Pertinent Past Medical History: Yes Neurological History: Migraines ENT History: No Pertinent History Cardiac History: Hypertension Respiratory History: No Pertinent History Endocrine Medical History: No Pertinent History Musculoskeletal History: Arthritis GI Medical History: No Pertinent History History: No Pertinent History Psycho-Social History: No Pertinent History Female Reproductive Disorders: No Pertinent History - Past Surgical History Past Surgical History: Yes Neuro Surgical History: No Pertinent History Cardiac: No Pertinent History Respiratory: No Pertinent History Gastrointestinal: Cholecystectomy Genitourinary: No Pertinent History Musculoskeletal: No Pertinent History Female Surgical History: Hysterectomy, Section, Tubal Ligation Other Surgical History: - Social History Smoking Status: Former smoker How long have you smoked: 31 years Exposure to second hand smoke: Yes Drug Use: none Patient Lives Alone: No Significant Family History: cancer - Nursing Vital Signs Nursing Vital Signs: Initial Vital Signs Temperature 98.2 F 12/10/18 17:21 Pulse Rate 78 12/10/18 17:21 Respiratory Rate 16 12/10/18 17:21 Blood Pressure 154/100 12/10/18 17:21 O2 Sat by Pulse Oximetry 98 12/10/18 17:21 Pain Scale Pain Intensity 7 - Physical Exam General Appearance: mild distress, alert, anxiety Eye Exam: PERRL/EOMI, eyes nml inspection Ears, Nose, Throat Exam: normal ENT inspection, moist mucous membranes Neck Exam: normal inspection, non-tender, supple, full range of motion Respiratory Exam: normal breath sounds, lungs clear, airway intact, No chest tenderness, No respiratory distress, No accessory muscle use, No rhonchi, No wheezing, No stridor Cardiovascular Exam: regular rate/rhythm, normal heart sounds, normal peripheral pulses Gastrointestinal/Abdominal Exam: soft, No tenderness, No guarding, No rebound Back Exam: normal inspection, normal range of motion, No CVA tenderness, No vertebral tenderness Extremity Exam: normal inspection, normal range of motion, pelvis stable Mental Status Exam: alert, oriented x 3, cooperative psychologist personnel Exam: normal hearing, normal speech, PERRL, tongue midline Motor/Sensory Exam: no motor deficit, no sensory deficit Skin Exam: normal color, warm, dry Lymphatic Exam: No adenopathy SpO2 Interpretation: normal O2 Delivery: Room Air - Course Nursing assessment & vital signs reviewed: Yes Ordered Tests: Medication Summary Discontinued Medications Generic Name Dose Route Start Last Admin Trade Name Leonidasq PRN Reason Stop Dose Admin Hydromorphone HCl 1 mg 12/10/18 17:27 Hydromorphone 1 Mg/Ml Ampule IM 12/10/18 17:28 STAT ONE Promethazine HCl 12.5 mg 12/10/18 17:27 Phenergan 25 Mg Inj IM 12/10/18 17:28 STAT ONE - Progress Progress: improved Air Movement: good Blood Culture(s) Obtained: No Antibiotics given: No Counseled pt/family regarding: diagnosis, need for follow-up - Departure Time of Disposition: 17:38 Departure Disposition: Home Clinical Impression: Migraine headache Condition: Stable Critical Care Time: No Referrals: CHASE LEE [Primary Care Provider] - Additional Instructions: follow up with your primary doctor for further management and referral to a neurologist and pain specialist if indicated
[2018-12-10] MEDS ORDERED: Phenergan 25 MG INJ IM ONE (17:27)
[2018-12-10] MEDS ORDERED: Hydromorphone 1 mg/ml Ampule IM ONE (17:27)
[2018-12-10 17:30] VITALS: BP 154/100; O2SAT 98
[2018-12-10] MEDS ORDERED: Hydromorphone 1 mg/ml Ampule ONE (17:35)
[2018-12-10] MEDS ORDERED: Phenergan 25 MG INJ ONE (17:35)
[2018-12-10 18:06] VITALS: PULSE 74
== END 2018-12-10 18:06 | disposition home or self-care (01) ==
LOC: ED 16:52
DX: R51 Headache (principal); R11.2 Nausea with vomiting, unspecified
CPT/HCPCS: 96372; 99284; J1170; J2550

== ENCOUNTER 2018-12-27 19:58 | Emergency (ER) | payer OTHER ==
--- NOTE | 2018-12-27 20:10 | ERPHSYRPT ---
- History of Present Illness Time Seen by Provider: 12/27/18 20:10 Source: patient Exam Limitations: no limitations Physician History: 53 y/o white female presents with headache, left arm numbness and bp 215/120. pt has h/o htn and has a clonidine dermal patch in place. pt gave herself an injection of migraine meds which did not help. pt denies cp. pt denies visual changes. Timing/Duration: hour(s) (4) Severity: moderate Associated Symptoms: denies symptoms, No nausea, No vomiting, No shortness of breath, No chest pain, No syncope, No weakness Allergies/Adverse Reactions: Penicillins Allergy (Unknown, Verified 12/10/18 17:29) Rash amoxicillin Adverse Reaction (Intermediate, Verified 12/10/18 17:29) Rash Home Medications: Nadolol 80 mg PO DAILY 06/23/18 [History] cloNIDine [Clonidine] 1 patch SUBDERMAL WEEKLY 06/23/18 [History] Hx Tetanus, Diphtheria Vaccination/Date Given: Yes Hx Influenza Vaccination/Date Given: Yes Hx Pneumococcal Vaccination/Date Given: Yes - Review of Systems Constitutional: No Symptoms Eyes: No Symptoms Ears, Nose, & Throat: No Symptoms Respiratory: No Symptoms Cardiac: No Symptoms Abdominal/Gastrointestinal: No Symptoms Genitourinary Symptoms: No Symptoms Musculoskeletal: No Symptoms Skin: No Symptoms Neurological: Headache, Parasthesia Psychological: No Symptoms Endocrine: No Symptoms Hematologic/Lymphatic: No Symptoms Immunological/Allergic: No Symptoms All Other Systems: Reviewed and Negative - Past Medical History Pertinent Past Medical History: Yes Neurological History: Migraines ENT History: No Pertinent History Cardiac History: Hypertension Respiratory History: No Pertinent History Endocrine Medical History: No Pertinent History Musculoskeletal History: Arthritis GI Medical History: No Pertinent History History: No Pertinent History Psycho-Social History: No Pertinent History Female Reproductive Disorders: No Pertinent History - Past Surgical History Past Surgical History: Yes Neuro Surgical History: No Pertinent History Cardiac: No Pertinent History Respiratory: No Pertinent History Gastrointestinal: Cholecystectomy Genitourinary: No Pertinent History Musculoskeletal: No Pertinent History Female Surgical History: Hysterectomy, Section, Tubal Ligation Other Surgical History: - Social History Smoking Status: Former smoker How long have you smoked: 31 years Exposure to second hand smoke: Yes Drug Use: none Patient Lives Alone: No Significant Family History: cancer - Nursing Vital Signs Nursing Vital Signs: Initial Vital Signs Temperature 97.6 F 12/27/18 19:59 Pulse Rate 89 12/27/18 19:59 Respiratory Rate 18 12/27/18 19:59 Blood Pressure 215/120 12/27/18 19:59 O2 Sat by Pulse Oximetry 98 12/27/18 19:59 Pain Scale Pain Intensity 10 - Physical Exam General Appearance: mild distress, alert, anxiety Eye Exam: PERRL/EOMI, eyes nml inspection Ears, Nose, Throat Exam: normal ENT inspection, TMs normal, moist mucous membranes Neck Exam: normal inspection, non-tender, supple, full range of motion Respiratory Exam: normal breath sounds, lungs clear, airway intact, No chest tenderness, No respiratory distress, No accessory muscle use, No rhonchi, No wheezing, No stridor Cardiovascular Exam: regular rate/rhythm, normal heart sounds, normal peripheral pulses Gastrointestinal/Abdomen Exam: soft, normal bowel sounds, No tenderness Pelvic Exam: not done Rectal Exam: not done Back Exam: normal inspection, normal range of motion, No CVA tenderness, No vertebral tenderness Extremity Exam: normal inspection, normal range of motion, pelvis stable Neurologic Exam: alert, oriented x 3, cooperative, frame hand II-XII nml as tested Skin Exam: normal color, warm, dry Lymphatic Exam: No adenopathy SpO2 Interpretation: normal O2 Delivery: Room Air - Course Nursing assessment & vital signs reviewed: Yes EKG Interpreted by Me: RATE (82), Sinus Rhythm, NORMAL AXIS, NORMAL INTERVALS, Non-specific ST Changes, Other (comparison ekg dated 12/27/18 tachycardia resolved) Ordered Tests: Active Orders 24 hr Category Date Time Status Advertising Operations Coordinator STAT Care 12/27/18 20:17 Active EKG-ER Only STAT Care 12/27/18 20:17 Active IV Insertion STAT Care 12/27/18 20:17 Active Pulse Oximetry (ED) STAT Care 12/27/18 20:17 Active HEAD WITHOUT CONTRAST [CT] Stat Exams 12/27/18 20:17 Taken CBC W DIFF Stat Lab 12/27/18 20:25 Completed CMP Stat Lab 12/27/18 20:25 Completed TROPONIN Q3H Lab 12/27/18 20:25 Completed TROPONIN Q3H Lab 12/27/18 23:30 Ordered Medication Summary Generic Name Dose Route Start Last Admin Trade Name Freq PRN Reason Stop Dose Admin Sodium Chloride 1,000 mls @ 50 mls/hr 12/27/18 20:30 12/27/18 20:21 Sodium Chloride 0.9% 1000 Ml IV 01/26/19 20:29 50 mls/hr .Q20H BOSSMAN Administration Discontinued Medications Generic Name Dose Route Start Last Admin Trade Name Zuhair PRN Reason Stop Dose Admin Hydralazine HCl 10 mg 12/27/18 20:19 12/27/18 20:21 Apresoline 20 Mg/Ml Inj IV 12/27/18 20:20 10 mg STAT ONE Administration Hydralazine HCl Confirm 12/27/18 20:19 Apresoline 20 Mg/Ml Inj Administered 12/27/18 20:20 Dose 20 mg .ROUTE .STK-MED ONE Morphine Sulfate 4 mg 12/27/18 21:04 12/27/18 21:12 Morphine Sulfate 4 Mg Inj IV 12/27/18 21:05 4 mg STAT ONE Administration Morphine Sulfate Confirm 12/27/18 21:10 Morphine Sulfate 4 Mg Inj Administered 12/27/18 21:11 Dose 4 mg .ROUTE .STK-MED ONE Lab/Rad Data: Laboratory Result Diagrams 12/27/18 20:25 12/27/18 20:25 Laboratory Results 12/27/18 12/27/18 12/27/18 Range/Units 20:25 20:25 20:25 WBC 12.6 H (4.0-10.5) K/mm3 RBC 5.15 (4.1-5.4) M/mm3 Hgb 13.5 (12.0-16.0) gm/dl Hct 43.2 (35-47) % MCV 83.9 (78-100) fl MCH 26.2 (26-32) pg MCHC 31.3 L (32-36) g/dl RDW 14.9 H (11.5-14.0) % Plt Count 257 (150-450) K/mm3 MPV 12.4 H (6-9.5) fl Gran % 71.0 H (36.0-66.0) % Eos # (Auto) 0.07 (0-0.5) Absolute Lymphs (auto) 2.60 (1.0-4.6) Absolute Monos (auto) 0.96 (0.0-1.3) Lymphocytes % 20.6 L (24.0-44.0) % Monocytes % 7.6 (0.0-12.0) % Eosinophils % 0.6 (0.00-5.0) % Basophils % 0.2 (0.0-0.4) % Absolute Granulocytes 8.95 H (1.4-6.9) Basophils # 0.02 (0-0.4) Sodium 143 (137-145) mmol/L Potassium 3.7 (3.5-5.1) mmol/L Chloride 109 H (98-107) mmol/L Carbon Dioxide 27 (22-30) mmol/L Anion Gap 11.6 (5-15) MEQ/L BUN 11 (7-17) mg/dL Creatinine 0.61 (0.52-1.04) mg/dL Estimated GFR > 60.0 ML/MIN Glucose 109 H (74-106) mg/dL Calcium 10.3 H (8.4-10.2) mg/dL Total Bilirubin 0.30 (0.2-1.3) mg/dL AST 12 L (14-36) U/L ALT 12 (0-35) U/L Alkaline Phosphatase 89 (38-126) U/L Troponin I < 0.012 (0.000-0.034) ng/mL Serum Total Protein 6.9 (6.3-8.2) g/dL Albumin 4.0 (3.5-5.0) g/dL - Departure Time of Disposition: 21:33 Departure Disposition: Home Clinical Impression: Hypertension, Migraine Condition: Stable Critical Care Time: No Referrals: CHASE LEE [Primary Care Provider] - Additional Instructions: take your medications as prescribed. follow up with primary doctor for further management
[2018-12-27] MEDS ORDERED: Sodium Chloride 0.9% 1000 ML 1,000 ML ONE (20:18)
[2018-12-27] MEDS ORDERED: APRESOLINE 20 MG/ML INJ IV ONE (20:19)
[2018-12-27] MEDS ORDERED: APRESOLINE 20 MG/ML INJ ONE (20:19)
[2018-12-27 20:29] LABS: BASOPHIL % 0.2 % (0.0-0.4); Basophil (Absolute #) 0.02 (0-0.4); Eosinophil % 0.6 % (0.00-5.0); Eosinophil (Absolute #) 0.07 (0-0.5); Granulocyte Absolute (ANC) 8.95 (1.4-6.9); Hematocrit 43.2 % (35-47); Hemoglobin 13.5 gm/dl (12.0-16.0); Lymphocytes % 20.6 % (24.0-44.0); Mean Cell Volume 83.9 fl (78-100); Mean Corpuscular Hemoglobin 26.2 pg (26-32); Mean Corpuscular Hgb Concent. 31.3 g/dl (32-36); Mean Platelet Volume 12.4 fl (6-9.5); Monocyte (Absolute #) 0.96 (0.0-1.3); Monocytes % 7.6 % (0.0-12.0); Platelet Count 257 K/mm3 (150-450); Red Blood Count 5.15 M/mm3 (4.1-5.4); Red Cell Distribution Width 14.9 % (11.5-14.0); White Blood Count 12.6 K/mm3 (4.0-10.5)
[2018-12-27] MEDS ORDERED: Sodium Chloride 0.9% 1000 ML 1,000 ML IV SCH (20:30)
[2018-12-27 21:01] LABS: ALKALINE PHOSPHATASE 89 U/L (38-126); ANION GAP 11.6 MEQ/L (5-15); BLOOD UREA NITROGEN 11 mg/dL (7-17); CHLORIDE 109 mmol/L (98-107); Calcium 10.3 mg/dL (8.4-10.2); Carbon Dioxide 27 mmol/L (22-30); Creatinine 1 0.61 mg/dL (0.52-1.04); Glucose 109 mg/dL (74-106); Potassium 3.7 mmol/L (3.5-5.1); SGOT/AST 12 U/L (14-36); SGPT/ALT 12 U/L (0-35); SODIUM 143 mmol/L (137-145); Total Protein 6.9 g/dL (6.3-8.2)
[2018-12-27] MEDS ORDERED: MORPHINE SULFATE 4 MG INJ IV ONE (21:04)
[2018-12-27] MEDS ORDERED: MORPHINE SULFATE 4 MG INJ ONE (21:10)
[2018-12-27] MEDS ORDERED: Catapres 0.1 MG PO ONE (21:38)
[2018-12-27] MEDS ORDERED: Catapres 0.1 MG ONE (21:40)
[2018-12-27 21:58] VITALS: BP 177/104; PULSE 88; O2SAT 98
--- NOTE | 2018-12-28 08:34 | XRAY ---
Indication: Migraine headache. High blood pressure. Multiple contiguous axial images obtained through the head without contrast. Comparison: November 18, 2015. Stable age-appropriate global atrophy and minimal periventricular degenerative micro-ischemia. No acute intracranial hemorrhage, abnormal extra-axial fluid collection, or mass effect. Fourth ventricle is midline without hydrocephalus. Santos-white matter differentiation preserved. Bony calvarium intact. Progressive worsening opacification of the right mastoid air cells with now partial opacification of the left. Impression: 1. Normal aging brain including atrophy and degenerative micro-ischemia. 2. No acute intracranial abnormalities. 3. Incidental opacification of both mastoid air cells presumed inflammatory. Comment: Preliminary interpretation was made by [facility]. No discrepancy. CT DI 70.69
== END 2018-12-27 21:57 | disposition home or self-care (01) ==
LOC: ED 19:58
DX: I10 Essential (primary) hypertension (principal); G43.909 Migraine, unspecified, not intractable, without status migrainosus
CPT/HCPCS: 36000; 36415; 70450; 80053; 84484; 85025; 93005; 93041; 96360; 96374; 96375; 99285; J0360; J2270; A9270-GY

== ENCOUNTER 2018-12-29 21:53 | Emergency (ER) | payer OTHER ==
--- NOTE | 2018-12-29 22:07 | ERPHSYRPT ---
- History of Present Illness Time Seen by Provider: 12/29/18 22:06 Source: patient Exam Limitations: no limitations Physician History: 53 y/o white female presents with migraine headache. pt has been in this ED 3 times in 18 days. most recently 2 days ago. pt had full work up [address] head which was negative. i managed this pt on 12/27/18. pt seen by pcp on 12/28/18 and they increased her clonidine patch. was unavailble at pharmacy. tonight bp high and pt has headache. pt has norco 10 at home Timing/Duration: today Head Pain Location: global (similar to normal headache) Severity of Pain-Max: moderate Severity of Pain-Current: moderate Recent Head Trauma: no recent headache/trauma Associated Symptoms: denies symptoms, No dizziness, No light-headedness, No loss of consciousness, No nausea/vomiting, No visual disturbance Previous symptoms: same symptoms as today Allergies/Adverse Reactions: Penicillins Allergy (Unknown, Verified 12/10/18 17:29) Rash amoxicillin Adverse Reaction (Intermediate, Verified 12/10/18 17:29) Rash Home Medications: Nadolol 80 mg PO DAILY 06/23/18 [History] cloNIDine [Clonidine] 1 patch SUBDERMAL WEEKLY 06/23/18 [History] Hx Tetanus, Diphtheria Vaccination/Date Given: Yes Hx Influenza Vaccination/Date Given: Yes Hx Pneumococcal Vaccination/Date Given: Yes - Review of Systems Constitutional: No Symptoms Eyes: No Symptoms Ears, Nose, & Throat: No Symptoms Respiratory: No Symptoms Cardiac: No Symptoms Abdominal/Gastrointestinal: No Symptoms Genitourinary Symptoms: No Symptoms Musculoskeletal: No Symptoms Skin: No Symptoms Neurological: Headache Psychological: No Symptoms Endocrine: No Symptoms Hematologic/Lymphatic: No Symptoms Immunological/Allergic: No Symptoms All Other Systems: Reviewed and Negative - Past Medical History Pertinent Past Medical History: Yes Neurological History: Migraines ENT History: No Pertinent History Cardiac History: Hypertension Respiratory History: No Pertinent History Endocrine Medical History: No Pertinent History Musculoskeletal History: Arthritis GI Medical History: No Pertinent History History: No Pertinent History Psycho-Social History: No Pertinent History Female Reproductive Disorders: No Pertinent History - Past Surgical History Past Surgical History: Yes Neuro Surgical History: No Pertinent History Cardiac: No Pertinent History Respiratory: No Pertinent History Gastrointestinal: Cholecystectomy Genitourinary: No Pertinent History Musculoskeletal: No Pertinent History Female Surgical History: Hysterectomy, Section, Tubal Ligation Other Surgical History: - Social History Smoking Status: Former smoker How long have you smoked: 31 years Exposure to second hand smoke: Yes Drug Use: none Patient Lives Alone: No Significant Family History: cancer - Nursing Vital Signs Nursing Vital Signs: Initial Vital Signs Temperature 98.0 F 12/29/18 21:53 Pulse Rate 87 12/29/18 21:53 Respiratory Rate 18 12/29/18 21:53 Blood Pressure 172/117 12/29/18 21:53 O2 Sat by Pulse Oximetry 97 12/29/18 21:53 Pain Scale Pain Intensity 10 - Physical Exam General Appearance: mild distress, alert, anxiety Eye Exam: PERRL/EOMI, eyes nml inspection Ears, Nose, Throat Exam: normal ENT inspection, moist mucous membranes Neck Exam: normal inspection, non-tender, supple, full range of motion Respiratory Exam: normal breath sounds, lungs clear, airway intact, No chest tenderness, No respiratory distress Cardiovascular Exam: regular rate/rhythm, normal heart sounds, normal peripheral pulses Gastrointestinal/Abdominal Exam: soft, normal bowel sounds, No tenderness, No guarding Back Exam: normal inspection, normal range of motion, No CVA tenderness, No vertebral tenderness Extremity Exam: normal inspection, normal range of motion, pelvis stable Mental Status Exam: alert, oriented x 3 tube winder hand Exam: normal hearing, normal speech, PERRL, tongue midline Motor/Sensory Exam: no motor deficit, no sensory deficit Skin Exam: normal color, warm, dry Lymphatic Exam: No adenopathy SpO2 Interpretation: normal O2 Delivery: Room Air - Course Nursing assessment & vital signs reviewed: Yes EKG Interpreted by Me: RATE - Progress Progress: improved Air Movement: good Blood Culture(s) Obtained: No Antibiotics given: No Counseled pt/family regarding: diagnosis, need for follow-up - Departure Time of Disposition: 22:28 Departure Disposition: Home Clinical Impression: Hypertension, Headache Condition: Stable Critical Care Time: No Referrals: CHASE LEE [Primary Care Provider] - Additional Instructions: fill your clonidine prescription tomorrow. follow up with your primary doctor for further management of these chronic conditions.
[2018-12-29] MEDS ORDERED: APRESOLINE 20 MG/ML INJ IM ONE (22:31)
[2018-12-29] MEDS ORDERED: APRESOLINE 20 MG/ML INJ ONE (22:31)
[2018-12-29] MEDS ORDERED: MORPHINE SULFATE 2 MG INJ ONE (22:31)
[2018-12-29] MEDS ORDERED: Phenergan 25 MG INJ ONE (22:31)
[2018-12-29] MEDS ORDERED: MORPHINE SULFATE 2 MG INJ IM ONE (22:32)
[2018-12-29] MEDS ORDERED: Phenergan 25 MG INJ IM ONE (22:33)
[2018-12-29 23:17] VITALS: BP 156/81; PULSE 88; O2SAT 98
== END 2018-12-29 23:17 | disposition home or self-care (01) ==
LOC: ED 21:53
DX: I10 Essential (primary) hypertension (principal); R51 Headache
CPT/HCPCS: 96372; 99284; J0360; J2270; J2550

== ENCOUNTER 2019-03-07 12:11 | Emergency (ER) | payer OTHER ==
[2019-03-07] MEDS ORDERED: TYLENOL 325 MG PO STA (13:09)
[2019-03-07] MEDS ORDERED: TYLENOL 325 MG ONE (13:22)
[2019-03-07 13:42] LABS: BASOPHIL % 0.2 % (0.0-0.4); Basophil (Absolute #) 0.01 (0-0.4); Eosinophil % 0.5 % (0.00-5.0); Eosinophil (Absolute #) 0.03 (0-0.5); Granulocyte Absolute (ANC) 4.49 (1.4-6.9); Granulocytes % 67.4 % (36.0-66.0); Hematocrit 44.1 % (35-47); Hemoglobin 13.9 gm/dl (12.0-16.0); Lymphocyte (Absolute #) 1.23 (1.0-4.6); Lymphocytes % 18.5 % (24.0-44.0); Mean Cell Volume 82.9 fl (78-100); Mean Corpuscular Hemoglobin 26.1 pg (26-32); Mean Corpuscular Hgb Concent. 31.5 g/dl (32-36); Monocyte (Absolute #) 0.89 (0.0-1.3); Monocytes % 13.4 % (0.0-12.0); Platelet Count 214 K/mm3 (150-450); Red Blood Count 5.32 M/mm3 (4.1-5.4); Red Cell Distribution Width 14.6 % (11.5-14.0); White Blood Count 6.7 K/mm3 (4.0-10.5)
[2019-03-07 13:50] LABS: ALBUMIN 4.3 g/dL (3.5-5.0); ALKALINE PHOSPHATASE 115 U/L (38-126); ANION GAP 16.1 MEQ/L (5-15); BLOOD UREA NITROGEN 9 mg/dL (7-17); CHLORIDE 104 mmol/L (98-107); Calcium 10.5 mg/dL (8.4-10.2); Carbon Dioxide 23 mmol/L (22-30); Creatinine 1 0.45 mg/dL (0.52-1.04); Glucose 102 mg/dL (74-106); Potassium 4.5 mmol/L (3.5-5.1); SGOT/AST 15 U/L (14-36); SGPT/ALT 11 U/L (0-35); SODIUM 139 mmol/L (137-145); Total Protein 7.6 g/dL (6.3-8.2)
--- NOTE | 2019-03-07 13:56 | ERPHSYRPT ---
- History of Present Illness Time Seen by Provider: 03/07/19 13:54 Source: patient Exam Limitations: no limitations Patient Subjective Stated Complaint: staes headache with sinus congestion, ears plugged and sore throat this AM Triage Nursing Assessment: alert and in no distress. states has a headache and sinus pain this AM sore throat. non productive cough. states nasal mucous is green/yellow. lungs clear bilaterally Physician History: staes headache with sinus congestion, ears plugged and sore throat this AM Timing/Duration: today Cough Quality/Degree: dry cough Possible Cause: no prior episodes Associated Symptoms: chest pain/soreness, cough, dizziness, earache, facial pain , headache, muscle aches, sinus infection, sore throat International travel in last 2 weeks: No Allergies/Adverse Reactions: Penicillins Allergy (Unknown, Verified 12/10/18 17:29) Rash amoxicillin Adverse Reaction (Intermediate, Verified 12/10/18 17:29) Rash Home Medications: Nadolol 80 mg PO DAILY 06/23/18 [History] cloNIDine [Clonidine] 1 patch SUBDERMAL WEEKLY 06/23/18 [History] Hx Tetanus, Diphtheria Vaccination/Date Given: Yes Hx Influenza Vaccination/Date Given: Yes Hx Pneumococcal Vaccination/Date Given: Yes Immunizations Up to Date: (unkn own) - Review of Systems Constitutional: Fever, Chills, Malaise Eyes: No Symptoms Ears, Nose, & Throat: No Symptoms, Nose Congestion, Throat Pain Respiratory: Cough, No Dyspnea Cardiac: No Chest Pain, No Edema, No Syncope Abdominal/Gastrointestinal: No Abdominal Pain, No Nausea, No Vomiting, No Diarrhea Genitourinary Symptoms: No Dysuria Musculoskeletal: No Back Pain, No Neck Pain Skin: No Rash Neurological: No Dizziness, No Focal Weakness, No Sensory Changes Psychological: No Symptoms Endocrine: No Symptoms All Other Systems: Reviewed and Negative - Past Medical History Pertinent Past Medical History: Yes Neurological History: Migraines ENT History: No Pertinent History Cardiac History: Hypertension Respiratory History: No Pertinent History Endocrine Medical History: No Pertinent History Musculoskeletal History: Arthritis GI Medical History: No Pertinent History History: No Pertinent History Psycho-Social History: No Pertinent History Female Reproductive Disorders: No Pertinent History - Past Surgical History Past Surgical History: Yes Neuro Surgical History: No Pertinent History Cardiac: No Pertinent History Respiratory: No Pertinent History Gastrointestinal: Cholecystectomy Genitourinary: No Pertinent History Musculoskeletal: No Pertinent History Female Surgical History: Hysterectomy, Section, Tubal Ligation Other Surgical History: - Social History Smoking Status: Current every day smoker How long have you smoked: 31 years Exposure to second hand smoke: No Drug Use: none Patient Lives Alone: No Significant Family History: cancer - Female History Hx Now: No - Nursing Vital Signs Nursing Vital Signs: Initial Vital Signs Temperature 99.5 F 03/07/19 12:36 Pulse Rate 71 03/07/19 12:36 Respiratory Rate 18 03/07/19 12:36 Blood Pressure 140/81 03/07/19 12:36 O2 Sat by Pulse Oximetry 97 03/07/19 12:36 Pain Scale Pain Intensity 4 - Physical Exam General Appearance: no apparent distress, alert Eye Exam: PERRL/EOMI, eyes nml inspection Ears, Nose, Throat Exam: normal ENT inspection, TMs normal, pharynx normal, moist mucous membranes, pharyngeal erythema Neck Exam: normal inspection, non-tender, supple, full range of motion Respiratory Exam: diminished breath sounds, wheezing, No respiratory distress Cardiovascular Exam: regular rate/rhythm, normal heart sounds Gastrointestinal/Abdomen Exam: soft, No tenderness Back Exam: normal inspection, No CVA tenderness, No vertebral tenderness Extremity Exam: normal inspection, normal range of motion Neurologic Exam: alert, oriented x 3, cooperative, normal mood/affect, sensation nml, No motor deficits Skin Exam: normal color, warm, dry, No rash Lymphatic Exam: No adenopathy SpO2: 94 - Radiology Exams Chest X-ray Interpretation: Reviewed by me (bronchitic changes) Ordered Tests: Active Orders 24 hr Category Date Time Status CHEST 2 VIEWS (PA AND LAT) Stat Exams 03/07/19 13:10 Taken BLOOD CULTURE Stat Lab 03/07/19 13:33 Received CBC W DIFF Stat Lab 03/07/19 13:37 Completed CMP Stat Lab 03/07/19 13:37 Completed Medication Summary Generic Name Dose Route Start Last Admin Trade Name Freq PRN Reason Stop Dose Admin Methylprednisolone Sodium Succinate 125 mg 03/07/19 14:54 Solu-Medrol 125 Mg IM 03/07/19 14:55 STAT ONE Discontinued Medications Generic Name Dose Route Start Last Admin Trade Name Freq PRN Reason Stop Dose Admin Acetaminophen 650 mg 03/07/19 13:09 03/07/19 13:23 Tylenol 325 Mg PO 03/07/19 13:10 650 mg STAT STA Administration Acetaminophen Confirm 03/07/19 13:22 Tylenol 325 Mg Administered 03/07/19 13:23 Dose 650 mg .ROUTE .K-MED ONE Lab/Rad Data: Laboratory Result Diagrams 03/07/19 13:37 03/07/19 13:37 Laboratory Results 03/07/19 03/07/19 03/07/19 Range/Units 13:37 13:37 13:37 WBC 6.7 (4.0-10.5) K/mm3 RBC 5.32 (4.1-5.4) M/mm3 Hgb 13.9 (12.0-16.0) gm/dl Hct 44.1 (35-47) % MCV 82.9 (78-100) fl MCH 26.1 (26-32) pg MCHC 31.5 L (32-36) g/dl RDW 14.6 H (11.5-14.0) % Plt Count 214 (150-450) K/mm3 MPV 12.0 H (6-9.5) fl Gran % 67.4 H (36.0-66.0) % Eos # (Auto) 0.03 (0-0.5) Absolute Lymphs (auto) 1.23 (1.0-4.6) Absolute Monos (auto) 0.89 (0.0-1.3) Lymphocytes % 18.5 L (24.0-44.0) % Monocytes % 13.4 H (0.0-12.0) % Eosinophils % 0.5 (0.00-5.0) % Basophils % 0.2 (0.0-0.4) % Absolute Granulocytes 4.49 (1.4-6.9) Basophils # 0.01 (0-0.4) Sodium 139 (137-145) mmol/L Potassium 4.5 (3.5-5.1) mmol/L Chloride 104 (98-107) mmol/L Carbon Dioxide 23 (22-30) mmol/L Anion Gap 16.1 H (5-15) MEQ/L BUN 9 (7-17) mg/dL Creatinine 0.45 L (0.52-1.04) mg/dL Estimated GFR > 60.0 ML/MIN Glucose 102 (74-106) mg/dL Calcium 10.5 H (8.4-10.2) mg/dL Total Bilirubin 0.40 (0.2-1.3) mg/dL AST 15 (14-36) U/L ALT 11 (0-35) U/L Alkaline Phosphatase 115 (38-126) U/L Serum Total Protein 7.6 (6.3-8.2) g/dL Albumin 4.3 (3.5-5.0) g/dL Influenza Type A Ag NEGATIVE (NEGATIVE) Influenza Type B Ag NEGATIVE (NEGATIVE) RSV (PCR) NEGATIVE (Negative) - Progress Progress: improved Air Movement: good Blood Culture(s) Obtained: No Antibiotics given: No Counseled pt/family regarding: lab results, diagnosis, need for follow-up, rad results - Departure Departure Disposition: Home Clinical Impression: Viral sinorhinitis Condition: Stable Critical Care Time: No Referrals: CHASE LEE [Primary Care Provider] - Instructions: Seasonal Allergies in Adults, Viral Pharyngitis Additional Instructions: Discharge/Care Plan MIRAADIN NIDIA was seen on 03/07/19 in the Emergency Room. The patient was counseled regarding Diagnosis,Lab results, Imaging studies, need for follow up and when to return to the Emergency Room. Prescriptions given: Discharge Note I have spoken with the patient and/or caregivers. I have explained the patient' s condition, diagnosis and treatment plan based on the information available to me at this time. I have answered the patient's and/or caregiver's questions and addressed any concerns. The patient and/or caregivers have as good understanding of the patient's diagnosis, condition and treatment plan as can be expected at this point. The vital signs have been stable. The patient's condition is stable and appropriate for discharge from the emergency department. The patient will pursue further outpatient evaluation with the primary care physician or other designated or consulting physician as outlined in the discharge instructions. The patient and/or caregivers are agreeable to this plan of care and follow-up instructions have been explained in detail. The patient and/or caregivers have received these instruction. The patient/and or caregivers are aware that any significant change in condition or worsening of symptoms should prompt an immediate return to this or the closest emergency department or call 911. Prescriptions: Guaifenesin/Dextromethorphan [Mucinex Dm ER 1,200-60 mg Tab] 1 each PO BID #15 tab.er.12h
[2019-03-07 14:49] LABS: INFLUENZA A NEGATIVE (NEGATIVE); INFLUENZA B NEGATIVE (NEGATIVE); RESPIRATORY SYNCTIAL VIRUS NEGATIVE (Negative)
[2019-03-07] MEDS ORDERED: solu-MEDROL 125 MG IM ONE (14:54)
[2019-03-07] MEDS ORDERED: solu-MEDROL 125 MG ONE (15:11)
[2019-03-07 15:17] VITALS: BP 139/78; PULSE 86; O2SAT 98
--- NOTE | 2019-03-07 20:15 | XRAY ---
Indication: Fever and chills. Flow symptoms. Comparison: July 03, 2017. PA/lateral chest remains clear. Heart is not enlarged. Bony thorax intact. No new/acute findings.
== END 2019-03-07 15:25 | disposition home or self-care (01) ==
LOC: ED 12:11
DX: B34.9 Viral infection, unspecified (principal); R07.9 Chest pain, unspecified; R05 Cough; R42 Dizziness and giddiness; H92.09 Otalgia, unspecified ear
CPT/HCPCS: 36415; 71046; 80053; 85025; 87040; 87631; 96372; 99284; J2930; A9270-GY

== ENCOUNTER 2019-06-25 19:55 | Emergency (ER) | payer OTHER ==
[2012-07-25 04:45] VITALS: BP 120/76
--- NOTE | 2019-06-25 20:33 | ERPHSYRPT ---
- History of Present Illness Time Seen by Provider: 06/25/19 20:33 Historian: patient Exam Limitations: no limitations Patient Subjective Stated Complaint: Vomiting Triage Nursing Assessment: Patient ambulated back to ED and transferred self to bed. Patient A+O X3. Patient's skin pink, warm and dry. Patient complains of vomiting for 2 days. Patient's abdomen round and soft with positive BS. Patient complains of body aches 5/10. lungs clear a/p emily. Timing/Duration: yesterday Activities at Onset: none Quality: other (Denies any pain) Pain Radiation: no radiation Severity of Pain-Max: none Severity of Pain-Current: none Modifying Factors: Improves With: eating Associated Symptoms: vomiting, No back, No chest pain, No diaphoresis, No diarrhea, No fatigue, No headache, No heartburn, No shortness of breath Previous symptoms: same symptoms as today Allergies/Adverse Reactions: Penicillins Allergy (Unknown, Verified 06/25/19 20:14) Rash amoxicillin Adverse Reaction (Intermediate, Verified 06/25/19 20:14) Rash Home Medications: Nadolol 80 mg PO DAILY 06/23/18 [History] cloNIDine HCl [Clonidine HCl] 0.3 mg PO DAILY 06/23/19 [History] Hx Tetanus, Diphtheria Vaccination/Date Given: Yes Hx Influenza Vaccination/Date Given: Yes Hx Pneumococcal Vaccination/Date Given: Yes Immunizations Up to Date: Yes - Review of Systems Constitutional: No Fever, No Chills Eyes: No Symptoms Ears, Nose, & Throat: No Symptoms Respiratory: No Cough, No Dyspnea Cardiac: No Chest Pain, No Edema, No Syncope Abdominal/Gastrointestinal: Nausea, Vomiting, No Abdominal Pain, No Diarrhea Genitourinary Symptoms: No Dysuria Musculoskeletal: No Back Pain, No Neck Pain Skin: No Rash Neurological: No Dizziness, No Focal Weakness, No Sensory Changes Psychological: No Symptoms Endocrine: No Symptoms All Other Systems: Reviewed and Negative - Past Medical History Pertinent Past Medical History: Yes Neurological History: Migraines ENT History: No Pertinent History Cardiac History: Hypertension Respiratory History: No Pertinent History Endocrine Medical History: No Pertinent History Musculoskeletal History: Arthritis GI Medical History: No Pertinent History History: No Pertinent History Psycho-Social History: No Pertinent History Female Reproductive Disorders: No Pertinent History - Past Surgical History Past Surgical History: Yes Neuro Surgical History: No Pertinent History Cardiac: No Pertinent History Respiratory: No Pertinent History Gastrointestinal: Cholecystectomy Genitourinary: No Pertinent History Musculoskeletal: No Pertinent History Female Surgical History: Hysterectomy, Section, Tubal Ligation Other Surgical History: - Social History Smoking Status: Current every day smoker How long have you smoked: 31 years Exposure to second hand smoke: No Drug Use: none Patient Lives Alone: No Significant Family History: cancer - Female History Hx Now: No - Nursing Vital Signs Nursing Vital Signs: Initial Vital Signs Temperature 98.0 F 06/25/19 20:15 Pulse Rate 81 06/25/19 20:15 Respiratory Rate 16 06/25/19 20:15 Blood Pressure 133/76 06/25/19 20:15 O2 Sat by Pulse Oximetry 97 06/25/19 20:15 Pain Scale Pain Intensity 8 - Physical Exam General Appearance: no apparent distress, alert, other (ppatient exam in presence of the nurse) Eye Exam: PERRL/EOMI, eyes nml inspection Ears, Nose, Throat Exam: normal ENT inspection, pharynx normal, moist mucous membranes Neck Exam: normal inspection, non-tender, supple, full range of motion Respiratory Exam: normal breath sounds, lungs clear, No respiratory distress Cardiovascular Exam: regular rate/rhythm, normal heart sounds Gastrointestinal/Abdomen Exam: soft, No tenderness, No mass Back Exam: normal inspection, normal range of motion, No CVA tenderness, No vertebral tenderness Extremity Exam: normal inspection, normal range of motion, pelvis stable Neurologic Exam: alert, oriented x 3, cooperative, normal mood/affect, nml cerebellar function, sensation nml, No motor deficits Skin Exam: normal color, warm, dry SpO2: 97 - Course Nursing assessment & vital signs reviewed: Yes - CT Exams Abdomen/Pelvis CT Interpretation: Other (colitis) Ordered Tests: Active Orders 24 hr Category Date Time Status IV Insertion STAT Care 06/25/19 20:40 Active ABDOMEN AND PELVIS W CONTRAST [CT] Stat Exams 06/25/19 20:45 Taken CBC W DIFF Stat Lab 06/25/19 20:45 Completed CMP Stat Lab 06/25/19 20:45 Completed CULTURE,URINE Stat Lab 06/25/19 20:50 Received LIPASE Stat Lab 06/25/19 20:45 Completed Manual Differential NC Stat Lab 06/25/19 20:45 Completed UA W/RFX UR CULTURE Stat Lab 06/25/19 20:50 Completed Medication Summary Discontinued Medications Generic Name Dose Route Start Last Admin Trade Name Zuhair PRN Reason Stop Dose Admin Hydromorphone HCl 1 mg 06/25/19 21:55 06/25/19 22:56 Hydromorphone 1 Mg/Ml Ampule IV 06/25/19 21:56 1 mg STAT ONE Administration Hydromorphone HCl Confirm 06/25/19 21:59 Hydromorphone 1 Mg/Ml Ampule Administered 06/25/19 22:00 Dose 1 mg .ROUTE .STK-MED ONE Sodium Chloride 1,000 mls @ 999 mls/hr 06/25/19 20:40 06/25/19 22:57 Sodium Chloride 0.9% 1000 Ml IV 06/25/19 21:40 Infused .Q1H1M STA Infusion Sodium Chloride Confirm 06/25/19 20:59 Sodium Chloride 0.9% 1000 Ml Administered 06/25/19 21:00 Dose 1,000 mls @ ud .ROUTE .STK-MED ONE Levofloxacin/Dextrose 500 mg in 100 mls @ 100 mls/hr 06/25/19 21:24 Levofloxacin 500mg/100ml D5w IV 06/25/19 22:23 STAT STA Levofloxacin/Dextrose Confirm 06/25/19 22:56 Levofloxacin 500mg/100ml D5w Administered 06/25/19 22:57 Dose 500 mg in 100 mls @ ud IV .STK-MED ONE Morphine Sulfate 2 mg 06/25/19 21:10 06/25/19 21:17 Morphine Sulfate 2 Mg Inj IV 06/25/19 21:11 2 mg STAT ONE Administration Morphine Sulfate Confirm 06/25/19 21:14 Morphine Sulfate 2 Mg Inj Administered 06/25/19 21:15 Dose 2 mg .ROUTE .STK-MED ONE Ondansetron HCl 4 mg 06/25/19 20:40 06/25/19 21:05 Zofran 4 Mg/2 Ml Vial IV 06/25/19 20:41 4 mg STAT ONE Administration Ondansetron HCl Confirm 06/25/19 20:59 Zofran 4 Mg/2 Ml Vial Administered 06/25/19 21:00 Dose 4 mg .ROUTE .STK-MED ONE Lab/Rad Data: Laboratory Result Diagrams 06/25/19 20:45 06/25/19 20:45 Laboratory Results 06/25/19 06/25/19 06/25/19 Range/Units 20:50 20:45 20:45 WBC 9.3 (4.0-10.5) K/mm3 RBC 5.36 (4.1-5.4) M/mm3 Hgb 13.8 (12.0-16.0) gm/dl Hct 43.4 (35-47) % MCV 81.0 (78-100) fl MCH 25.7 L (26-32) pg MCHC 31.8 L (32-36) g/dl RDW 15.4 H (11.5-14.0) % Plt Count 220 (150-450) K/mm3 MPV 12.0 H (6-9.5) fl Segmented Neutrophils 80 H (36.0-66.0) % Lymphocytes (Manual) 10 L (24-44) % Monocytes (Manual) 6 (0.0-12.0) % Atypical Lymphocytes 4 % Platelet Estimate NORMAL (NORMAL) RBC Morphology NORMAL Sodium 139 (137-145) mmol/L Potassium 3.9 (3.5-5.1) mmol/L Chloride 107 (98-107) mmol/L Carbon Dioxide 19 L (22-30) mmol/L Anion Gap 17.3 H (5-15) MEQ/L BUN 13 (7-17) mg/dL Creatinine 0.42 L (0.52-1.04) mg/dL Estimated GFR > 60.0 ML/MIN Glucose 111 H (74-106) mg/dL Calcium 8.8 (8.4-10.2) mg/dL Total Bilirubin 0.60 (0.2-1.3) mg/dL AST 25 (14-36) U/L ALT 24 (0-35) U/L Alkaline Phosphatase 127 H (38-126) U/L Serum Total Protein 7.8 (6.3-8.2) g/dL Albumin 4.4 (3.5-5.0) g/dL Lipase 32 (23-300) U/L Urine Color DARK YELLOW (YELLOW) Urine Appearance CLOUDY (CLEAR) Urine pH 6.0 (5-6) Ur Specific [place] 1.024 (1.005-1.025) Urine Protein 100 (Negative) Urine Ketones MODERATE (NEGATIVE) Urine Blood SMALL (0-5) John/ul Urine Nitrite NEGATIVE (NEGATIVE) Urine Bilirubin SMALL (NEGATIVE) Urine Urobilinogen 4 (0-1) mg/dL Ur Leukocyte Esterase MODERATE (NEGATIVE) Urine WBC (Auto) 26-50 (0-5) /HPF Urine RBC (Auto) 6-10 (0-2) /HPF U Hyaline Cast (Auto) 11-25 (0-2) /LPF U Epithel Cells (Auto) RARE (FEW) /HPF Urine Bacteria (Auto) MODERATE (NEGATIVE) /HPF Urine Mucus (Auto) MANY (NEGATIVE) /HPF Urine Culture Reflexed YES (NO) Urine Glucose NEGATIVE (NEGATIVE) mg/dL - Progress Progress: improved Counseled pt/family regarding: lab results, diagnosis, need for follow-up, rad results - Departure Departure Disposition: Home Clinical Impression: Colitis UTI (urinary tract infection) Qualifiers: Urinary tract infection type: acute cystitis Hematuria presence: without hematuria Qualified Code(s): N30.00 - Acute cystitis without hematuria Nausea & vomiting Qualifiers: Vomiting type: unspecified Vomiting Intractability: non-intractable Qualified Code(s): R11.2 - Nausea with vomiting, unspecified Condition: Stable Critical Care Time: No Referrals: CHASE LEE [Primary Care Provider] - Instructions: Vomiting -- Adult, Nausea -- Adult Prescriptions: Ondansetron ODT 4 MG [Zofran Odt 4 mg] 4 mg PO Q6H PRN PRN 3 Days #10 tab.rapdis PRN Reason: Vomiting Ciprofloxacin [Cipro 500 MG] 500 mg PO BID #14 tablet Metronidazole 500 mg [Flagyl 500 MG] 500 mg PO TID 7 Days #21 tablet
[2019-06-25] MEDS ORDERED: Sodium Chloride 0.9% 1000 ML 1,000 ML IV STA (20:40)
[2019-06-25] MEDS ORDERED: Zofran 4 MG/2 ML VIAL IV ONE (20:40)
[2019-06-25 20:56] LABS: Hematocrit 43.4 % (35-47); Hemoglobin 13.8 gm/dl (12.0-16.0); Mean Corpuscular Hemoglobin 25.7 pg (26-32); Mean Corpuscular Hgb Concent. 31.8 g/dl (32-36); Platelet Count 220 K/mm3 (150-450); Red Blood Count 5.36 M/mm3 (4.1-5.4); Red Cell Distribution Width 15.4 % (11.5-14.0); White Blood Count 9.3 K/mm3 (4.0-10.5)
[2019-06-25] MEDS ORDERED: Zofran 4 MG/2 ML VIAL ONE (20:59)
[2019-06-25] MEDS ORDERED: Sodium Chloride 0.9% 1000 ML 1,000 ML ONE (20:59)
[2019-06-25 21:07] LABS: ALBUMIN 4.4 g/dL (3.5-5.0); ALKALINE PHOSPHATASE 127 U/L (38-126); ANION GAP 17.3 MEQ/L (5-15); BLOOD UREA NITROGEN 13 mg/dL (7-17); CHLORIDE 107 mmol/L (98-107); Calcium 8.8 mg/dL (8.4-10.2); Carbon Dioxide 19 mmol/L (22-30); Creatinine 1 0.42 mg/dL (0.52-1.04); Glucose 111 mg/dL (74-106); LIPASE 32 U/L (23-300); Potassium 3.9 mmol/L (3.5-5.1); SGOT/AST 25 U/L (14-36); SGPT/ALT 24 U/L (0-35); SODIUM 139 mmol/L (137-145); Total Protein 7.8 g/dL (6.3-8.2)
[2019-06-25] MEDS ORDERED: MORPHINE SULFATE 2 MG INJ IV ONE (21:10)
[2019-06-25] MEDS ORDERED: MORPHINE SULFATE 2 MG INJ ONE (21:14)
[2019-06-25 21:17] LABS: Appearance CLOUDY (CLEAR); Bacteria MODERATE /HPF (NEGATIVE); Bilirubin SMALL (NEGATIVE); Blood SMALL Ery/ul (0-5); Epithelial Cells RARE /HPF (FEW); Glucose NEGATIVE (NEGATIVE); Ketones MODERATE (NEGATIVE); Leukocyte Esterase MODERATE (NEGATIVE); Mucus MANY /HPF (NEGATIVE); Nitrite NEGATIVE (NEGATIVE); Protein,Urine Dip 100 (Negative); Specific Gravity 1.024 (1.005-1.025); Urobilinogen 4 mg/dL (0-1); WBC 26-50 /HPF (0-5)
[2019-06-25] MEDS ORDERED: Levofloxacin 500MG/100ML D5W 500 MG/100 ML BAG IV STA (21:24)
[2019-06-25 21:26] LABS: ATYPICAL LYMPHS 4 %; Lymphocytes 10 % (24-44); Monocyte 6 % (0.0-12.0); Neutrophils 80 % (36.0-66.0); Total Cells Counted 100
[2019-06-25 21:29] LABS: Platelet Estimate NORMAL (NORMAL)
[2019-06-25 21:39] VITALS: O2SAT 97
[2019-06-25] MEDS ORDERED: Hydromorphone 1 mg/ml Ampule IV ONE (21:55)
[2019-06-25] MEDS ORDERED: Hydromorphone 1 mg/ml Ampule ONE (21:59)
[2019-06-25] MEDS ORDERED: Levofloxacin 500MG/100ML D5W 500 MG/100 ML BAG IV ONE (22:56)
[2019-06-25] MEDS ORDERED: Flagyl 500 MG PO ONE (22:59)
[2019-06-25] MEDS ORDERED: DEMEROL 25MG SYRINGE IV ONE (23:00)
[2019-06-25] MEDS ORDERED: Reglan 10 MG/2 ML IV ONE (23:00)
[2019-06-25] MEDS ORDERED: Flagyl 500 MG ONE (23:14)
[2019-06-25] MEDS ORDERED: Reglan 10 MG/2 ML ONE (23:14)
[2019-06-26] MEDS ORDERED: DEMEROL 25MG SYRINGE ONE
[2019-06-26] MEDS ORDERED: Cipro 500 MG ONE
[2019-06-26 00:07] VITALS: BP 156/84; PULSE 84
--- NOTE | 2019-06-26 08:48 | XRAY ---
Indication: Upper abdomen pain, nausea, and vomiting. Multiple contiguous axial images obtained through the abdomen and pelvis using 80 cc Isovue 370 contrast only. Comparison: March 13, 2012. Lung bases remain clear. Heart is not enlarged. Noncontrasted stomach and bowel loops appear nonobstructed. Normal appendix. Again cholecystectomy and partial hysterectomy. 2.2 cm left ovary cyst. No free fluid/air. A few left renal cysts largest 1.9 cm not well-seen on previous noncontrast exam. Remaining liver, pancreas, spleen, adrenal glands, kidneys, ureters, and bladder bladder appear unremarkable for noncontrast exam. Mild scattered aortoiliac calcifications without AAA. Osseous structures intact. No ventral or inguinal hernias. Impression: 1. 2.2 cm dominant left ovary cyst. 2. Left renal cysts. 3. Remaining CT abdomen/pelvis with contrast exam is negative. Comment: Preliminary interpretation was made by C. No critical discrepancy. CTDI 22.59
[2019-06-26] MEDS ORDERED: Cipro 500 MG PO ONE (22:59)
== END 2019-06-26 00:53 | disposition home or self-care (01) ==
LOC: ED 19:55
DX: K52.9 Noninfective gastroenteritis and colitis, unspecified (principal); N30.00 Acute cystitis without hematuria; R11.2 Nausea with vomiting, unspecified
CPT/HCPCS: 36000; 36415; 74177; 80053; 81001; 83690; 85025; 87086; 96360; 96365; 96374; 96375; 99285; J1170; J1956; J2175; J2270; J2405; A9270-GY

== ENCOUNTER 2019-06-28 09:51 | Observation (INO) | payer OTHER ==
[2019-06-28 11:41] LABS: Appearance CLOUDY (CLEAR); Bacteria RARE /HPF (NEGATIVE); Bilirubin SMALL (NEGATIVE); Blood SMALL Ery/ul (0-5); Crystals Unidentified 25-50 /HPF (NEGATIVE); Epithelial Cells RARE /HPF (FEW); Glucose NEGATIVE (NEGATIVE); Ketones NEGATIVE (NEGATIVE); Leukocyte Esterase MODERATE (NEGATIVE); Mucus MANY /HPF (NEGATIVE); Nitrite NEGATIVE (NEGATIVE); Protein,Urine Dip 30 (Negative); Specific Gravity 1.024 (1.005-1.025); Urobilinogen 4 mg/dL (0-1); WBC 26-50 /HPF (0-5)
[2019-06-28 11:48] LABS: ALBUMIN 4.2 g/dL (3.5-5.0); ALKALINE PHOSPHATASE 167 U/L (38-126); AMYLASE 48 U/L (30-110); ANION GAP 14.6 MEQ/L (5-15); BLOOD UREA NITROGEN 8 mg/dL (7-17); CHLORIDE 107 mmol/L (98-107); Calcium 9.3 mg/dL (8.4-10.2); Carbon Dioxide 23 mmol/L (22-30); Creatinine 1 0.33 mg/dL (0.52-1.04); Glucose 110 mg/dL (74-106); LIPASE 47 U/L (23-300); Potassium 3.7 mmol/L (3.5-5.1); SGOT/AST 18 U/L (14-36); SGPT/ALT 30 U/L (0-35); SODIUM 142 mmol/L (137-145); Total Protein 7.5 g/dL (6.3-8.2)
[2019-06-28] MEDS ORDERED: Sodium Chloride 0.9% 1000 ML 1,000 ML IV SCH (12:15)
[2019-06-28] MEDS ORDERED: Nicoderm CQ 21 MG TOP SCH (12:30)
[2019-06-28] MEDS: Zofran 4 MG/2 ML VIAL IV PRN ×2 (12:53→18:37)
--- NOTE | 2019-06-28 12:54 | XRAY ---
Exam: Supine film the abdomen from 06/28/2019. Comparison: CT of the abdomen and pelvis with IV contrast from 06/25/2019. Indication: 53-year-old female with vomiting, dehydration; has not been able to keep anything down for 4 days. Findings: 2 supine images of the abdomen are submitted for evaluation. Findings: The bowel gas pattern appears unremarkable. I see no bowel distention to suggest obstruction. A mild amount of scattered colonic stool is seen, nonspecific. There is mild elevation/eventration of the right hemidiaphragm. Surgical clips consistent with prior cholecystectomy are seen within the right upper quadrant. There is a small round calcification overlying the medial aspect of the left upper quadrant which appears to relate to a calcified granuloma within the medial aspect of the spleen on axial image #25 of series 4. No hepatosplenomegaly is seen. Some surgical clips are noted within the lower left pelvis representing no change. No acute osseous process is seen. Impression: 1. Unremarkable bowel gas pattern with a mild amount of scattered colonic stool retention. No bowel obstruction is seen. 2. Evidence of prior cholecystectomy with surgical clips in the right upper quadrant. Also, there are some surgical clips within the lower left pelvis from prior surgery. 3. No other significant findings of note are seen.
[2019-06-28] MEDS ORDERED: TYLENOL 325 MG PO PRN (13:02)
[2019-06-28 13:11] LABS: Hematocrit 42.2 % (35-47); Hemoglobin 13.4 gm/dl (12.0-16.0); Mean Cell Volume 81.2 fl (78-100); Mean Corpuscular Hemoglobin 25.8 pg (26-32); Mean Corpuscular Hgb Concent. 31.8 g/dl (32-36); Mean Platelet Volume 13.2 fl (6-9.5); Platelet Count 250 K/mm3 (150-450); Red Cell Distribution Width 15.4 % (11.5-14.0); White Blood Count 6.8 K/mm3 (4.0-10.5)
[2019-06-28 13:26] LABS: Lymphocytes 26 % (24-44); Monocyte 8 % (0.0-12.0); Neutrophils 66 % (36.0-66.0); Platelet Estimate NORMAL (NORMAL); Total Cells Counted 100
[2019-06-28] MEDS: Lactated Ringers 1,000 ML IV SCH ×2 (13:56→23:31)
[2019-06-28] MEDS: Phenergan 25 MG INJ IV PRN ×2 (14:05→20:48)
[2019-06-28] MEDS ORDERED: Zanaflex 4 MG PO PRN (20:25)
[2019-06-28] MEDS ORDERED: TORAdol 30 mg Injection IV ONE (20:27)
[2019-06-28] MEDS ORDERED: Catapres TTS-2 PATCH TOP SCH (20:30)
[2019-06-28] MEDS: ROCEPHIN 1 Gm-D5w 50 ml Bag** 1 G/50 ML IVPB IV SCH (20:48)
[2019-06-29 07:24] VITALS: BP 176/81; PULSE 66; O2SAT 95
[2019-06-29] MEDS: ROCEPHIN 1 Gm-D5w 50 ml Bag** 1 G/50 ML IVPB IV SCH (08:55)
[2019-06-29] MEDS ORDERED: Toprol Xl 100 MG PO SCH (10:00)
[2019-06-29] MEDS ORDERED: PROTONIX 40 MG IV IV SCH (10:00)
== END 2019-06-29 10:02 | disposition home or self-care (01) ==
LOC: MED SURG 10:42
PROVIDERS: ADMIT Family Medicine; ATTEND Family Medicine
DX: R11.10 Vomiting, unspecified (principal); E86.0 Dehydration; Z79.899 Other long term (current) drug therapy; J44.9 Chronic obstructive pulmonary disease, unspecified; Z86.73 Personal history of transient ischemic attack (TIA), and cerebral infarction without residual deficits
CPT/HCPCS: 36415; 74018; 80053; 81001; 82150; 83690; 85025; 87086; 94760; G0378; J0696; J1885; J2405; J2550; A9270-GY

== ENCOUNTER 2019-08-11 07:23 | Day surgery (SDC) | payer OTHER ==
[2019-08-11] MEDS ORDERED: Lactated Ringers 1,000 ML IV ONE (07:36)
[2019-08-11] MEDS ORDERED: DIPRIVAN 200 MG/20 ML IV ONE (07:57)
[2019-08-11] MEDS ORDERED: Ketamine HCl 50 MG/ML ONE (07:58)
[2019-08-11] MEDS ORDERED: Lactated Ringers 1,000 ML IV SCH (08:00)
[2019-08-11 09:05] VITALS: O2SAT 97
[2019-08-11 09:13] VITALS: BP 127/78; PULSE 74
--- NOTE | 2019-08-11 11:49 | OP ---
SURGERY DATE/TIME: 08/11/2019 0810 PREOPERATIVE DIAGNOSES: 1) Abdominal pain. 2) Nausea. POSTOPERATIVE DIAGNOSES: 1) Mild gastritis. 2) Small hiatal hernia. PROCEDURE: EGD. SURGEON: Alonso Ordonez M.D. ANESTHESIA: MAC by Roby Ingram CRNA. ESTIMATED BLOOD LOSS: Minimal. SPECIMENS: Two cold forceps biopsies from the gastric antrum were sent for Helicobacter pylori testing. DESCRIPTION OF PROCEDURE: After informed written consent was obtained, the patient was taken to the endoscopy suite. She underwent monitored anesthesia and a bite block was inserted. The endoscope was easily passed through the posterior oropharynx and under direct visualization the esophagus was traversed. There was a normal mucosal appearance. There was a small hiatal hernia appreciable upon entering the gastric cavity. The gastric mucosa was rugated with no bleeding or ulceration present. There were mild gastritis-type changes in the gastric antrum. The pylorus was traversed and the first and second portions of the duodenum were free of any mucosal defects. Two small cold forceps biopsies were taken from the gastric antrum and sent for Helicobacter pylori testing. Retroflexion again showed a small hiatal hernia but no other abnormalities in the superior aspect of the gastric cavity. Upon withdrawal careful mucosal inspection of the esophageal mucosa again revealed no obvious abnormalities. The scope was removed and the patient was transferred to the recovery room in good condition. She is advised to follow up in a week for pathology results. In the meantime, I have advised that she avoid all NSAID's and aspirin containing products and may take Tylenol as needed.
== END 2019-08-11 09:15 | disposition home or self-care (01) ==
LOC: SDC 07:23
PROVIDERS: ATTEND Family Medicine
DX: K29.70 Gastritis, unspecified, without bleeding (principal); K44.9 Diaphragmatic hernia without obstruction or gangrene
CPT/HCPCS: J2704

== ENCOUNTER 2019-11-28 14:31 | Emergency (ER) | payer OTHER ==
[2019-11-28] MEDS ORDERED: TYLENOL 325 MG PO STA (14:46)
[2019-11-28] MEDS ORDERED: ZOFRAN ODT 4 MG PO ONE (14:47)
[2019-11-28] MEDS ORDERED: ZOFRAN ODT 4 MG ONE (14:49)
[2019-11-28] MEDS ORDERED: TYLENOL 325 MG ONE (14:49)
--- NOTE | 2019-11-28 14:55 | ERPHSYRPT ---
- History of Present Illness Time Seen by Provider: 11/28/19 14:53 Source: patient Patient Subjective Stated Complaint: pt here for headache,cough, aches,chills, vomiting since this morning, Triage Nursing Assessment: pt alert, walked in, resp easy, has dry cough, skin w /d/p. moves all ext well ,no edema Physician History: pt here for headache,cough, aches,chills, vomiting since this morning, Timing/Duration: today Cough Quality/Degree: dry cough Associated Symptoms: fever, chills, cough, headache, muscle aches, sore throat International travel in last 2 weeks: No Allergies/Adverse Reactions: amoxicillin Allergy (Mild, Verified 11/28/19 14:44) Rash Penicillins Allergy (Mild, Verified 11/28/19 14:44) Rash Home Medications: Metoprolol Succinate 100 mg [Toprol Xl 100 MG] 100 mg PO DAILY 06/28/19 [ History] cloNIDine [Clonidine] 0.3 mg TOP UD 06/28/19 [History] Amlodipine Besylate 5 mg [Norvasc 5 mg] 5 mg PO DAILY 08/03/19 [History] Hx Tetanus, Diphtheria Vaccination/Date Given: Yes Hx Influenza Vaccination/Date Given: Yes Hx Pneumococcal Vaccination/Date Given: Yes - Review of Systems Constitutional: Fever, Chills, Malaise, Weakness Eyes: No Symptoms Ears, Nose, & Throat: No Symptoms Respiratory: Cough, No Dyspnea Cardiac: No Chest Pain, No Edema, No Syncope Abdominal/Gastrointestinal: No Abdominal Pain, No Nausea, No Vomiting, No Diarrhea Genitourinary Symptoms: No Dysuria Musculoskeletal: No Back Pain, No Neck Pain Skin: No Rash Neurological: No Dizziness, No Focal Weakness, No Sensory Changes Psychological: No Symptoms Endocrine: No Symptoms All Other Systems: Reviewed and Negative - Past Medical History Pertinent Past Medical History: Yes Neurological History: Migraines ENT History: No Pertinent History Cardiac History: Hypertension Respiratory History: No Pertinent History Endocrine Medical History: No Pertinent History Musculoskeletal History: Arthritis GI Medical History: No Pertinent History History: No Pertinent History Psycho-Social History: No Pertinent History Female Reproductive Disorders: No Pertinent History Other Medical History: anemia - Past Surgical History Past Surgical History: Yes Neuro Surgical History: No Pertinent History Cardiac: No Pertinent History Respiratory: No Pertinent History Gastrointestinal: Cholecystectomy Genitourinary: No Pertinent History Musculoskeletal: No Pertinent History Female Surgical History: Hysterectomy, Section, Tubal Ligation Other Surgical History: partial hysterectomy - Social History Smoking Status: Current every day smoker How long have you smoked: 31 years Exposure to second hand smoke: Yes Drug Use: none Patient Lives Alone: No Significant Family History: cancer - Female History Hx Last Menstrual Period: psot Hx Now: No - Nursing Vital Signs Nursing Vital Signs: Initial Vital Signs Temperature 98.6 F 11/28/19 14:38 Pulse Rate 80 11/28/19 14:38 Respiratory Rate 18 11/28/19 14:38 Blood Pressure 149/94 11/28/19 14:38 O2 Sat by Pulse Oximetry 96 11/28/19 14:38 Pain Scale Pain Intensity 4 - Physical Exam General Appearance: no apparent distress, alert Eye Exam: PERRL/EOMI, eyes nml inspection, other (injected conjunctiva) Ears, Nose, Throat Exam: normal ENT inspection, TMs normal, pharynx normal, moist mucous membranes Neck Exam: normal inspection, non-tender, supple, full range of motion Respiratory Exam: normal breath sounds, lungs clear, No respiratory distress Cardiovascular Exam: regular rate/rhythm, normal heart sounds Gastrointestinal/Abdomen Exam: soft, No tenderness Back Exam: normal inspection, No CVA tenderness, No vertebral tenderness Extremity Exam: normal inspection, normal range of motion Neurologic Exam: alert, oriented x 3, cooperative, normal mood/affect, sensation nml, No motor deficits Skin Exam: normal color, warm, dry, No rash Lymphatic Exam: No adenopathy SpO2: 96 - Course Nursing assessment & vital signs reviewed: Yes Ordered Tests: Medication Summary Generic Name Dose Route Start Last Admin Trade Name Freq PRN Reason Stop Dose Admin Ketorolac Tromethamine 60 mg 11/28/19 15:43 Toradol 30 Mg Injection IM 11/28/19 15:44 STAT ONE Discontinued Medications Generic Name Dose Route Start Last Admin Trade Name Freq PRN Reason Stop Dose Admin Acetaminophen 975 mg 11/28/19 14:46 11/28/19 14:51 Tylenol 325 Mg PO 11/28/19 14:47 975 mg STAT STA Administration Acetaminophen Confirm 11/28/19 14:49 Tylenol 325 Mg Administered 11/28/19 14:50 Dose 975 mg .ROUTE .STK-MED ONE Ondansetron HCl 4 mg 11/28/19 14:47 11/28/19 14:52 Zofran Odt 4 Mg PO 11/28/19 14:48 4 mg STAT ONE Administration Ondansetron HCl Confirm 11/28/19 14:49 Zofran Odt 4 Mg Administered 11/28/19 14:50 Dose 4 mg .ROUTE .STK-MED ONE Lab/Rad Data: Laboratory Results 11/28/19 Range/Units 14:55 Influenza Type A Ag NEGATIVE (NEGATIVE) Influenza Type B Ag NEGATIVE (NEGATIVE) RSV (PCR) NEGATIVE (Negative) - Progress Progress: unchanged Air Movement: good Blood Culture(s) Obtained: No Antibiotics given: No Counseled pt/family regarding: lab results, diagnosis, need for follow-up - Departure Departure Disposition: Home Clinical Impression: Viral sinorhinitis Condition: Stable Critical Care Time: No Referrals: CHASE LEE [Primary Care Provider] - Instructions: Headache, Adult (DC) Additional Instructions: ADIN MEYERS NIDIA was seen on 11/28/19 n the Emergency Room. At that time you were treated for an emergent condition, during your visit Laboratory, Radiology and/or other procedures may have been ordered. It is very important that you follow-up with your Primary Care Physician CHASE LEE within the next 24-48 hours to review your Emergency Room visit and the final results of testing that was ordered. Some test results such as Urine Cultures, Blood Cultures, and other cultures if ordered will not be finalized for 24-48 hours. If you do not have a Primary Care Provider please call the medical records department at [phone] ext [phone] to obtain a copy of your results or you may sign into our patient portal to obtain these results by visiting us @ [email or web address] and completing the following steps: 1. Click on the Patient Portal link 2. Click the Patient Self Enrollment Link to complete the enrollment form and entering your 3. Once the enrollment form is completed you will receive an email with a temporary ID and password at the email address you provided. 4. Next choose a user name and password. Your user name must be at least 4 characters long and your password must be at least 4 characters long. 5. Choose a security question from the list and provide your answer to the question. If you already have signed into the Health Portal you may access your Health Care Information 28/04 by the following steps: 1. Login to our website @ [email or web address] 2. Enter your original user name and password. FAQS The [facility] Portal is an online tool that contains your Lab Results, Radiology Reports, Visit History, Discharge Instructions and Health Summary Lab and Radiology Results will not be available for 72 hours on the portal. The Portal is a secure site, passwords are encryted and URLs are re-written so they cannot be copied and pasted. You and authorized family members are the only ones who can access your Portal. Also there is a timeout feature that protects your information if you leave the Portal page open. If you have technical difficulty please use the Contact Us link on the page this will allow you to submit any questions you have regarding the Portal or you may contact the Medical Record Department at [phone] ext [phone]. Discharge/Care Plan ADIN MEYERS was seen on 11/28/19 in the Emergency Room. The patient was counseled regarding Diagnosis,Lab results, Imaging studies, need for follow up and when to return to the Emergency Room. Prescriptions given: Discharge Note I have spoken with the patient and/or caregivers. I have explained the patient' s condition, diagnosis and treatment plan based on the information available to me at this time. I have answered the patient's and/or caregiver's questions and addressed any concerns. The patient and/or caregivers have as good understanding of the patient's diagnosis, condition and treatment plan as can be expected at this point. The vital signs have been stable. The patient's condition is stable and appropriate for discharge from the emergency department. The patient will pursue further outpatient evaluation with the primary care physician or other designated or consulting physician as outlined in the discharge instructions. The patient and/or caregivers are agreeable to this plan of care and follow-up instructions have been explained in detail. The patient and/or caregivers have received these instruction. The patient/and or caregivers are aware that any significant change in condition or worsening of symptoms should prompt an immediate return to this or the closest emergency department or call 911. Prescriptions: Naproxen 375 mg [Naprosyn 375 mg] 375 mg PO Q8H #30 tablet Guaifenesin/Codeine Phosphate [Robitussin AC Syrup] 5 ml PO QID #120 ml
[2019-11-28 15:28] LABS: INFLUENZA A NEGATIVE (NEGATIVE); INFLUENZA B NEGATIVE (NEGATIVE); RESPIRATORY SYNCTIAL VIRUS NEGATIVE (Negative)
[2019-11-28] MEDS ORDERED: TORAdol 30 mg Injection IM ONE (15:43)
[2019-11-28] MEDS ORDERED: TORAdol 30 mg Injection ONE (15:48)
[2019-11-28 15:56] VITALS: BP 134/72; PULSE 68; O2SAT 95
== END 2019-11-28 16:21 | disposition home or self-care (01) ==
LOC: ED 14:31
DX: B34.9 Viral infection, unspecified (principal)
CPT/HCPCS: 87631; 96372; 99284; J1885; Q0162; A9270-GY

== ENCOUNTER 2020-02-17 22:01 | Emergency (ER) | payer MEDICAID, OTHER ==
[2012-07-25 04:45] VITALS: BP 120/76
[2020-02-17 22:27] LABS: Absolute Neutrophil Ct (ANC) 11.74 (1.4-6.9); BASOPHIL % 0.2 % (0.0-0.4); Basophil (Absolute #) 0.02 (0-0.4); Eosinophil % 0.2 % (0.00-5.0); Eosinophil (Absolute #) 0.02 (0-0.5); Hematocrit 45.6 % (35-47); Hemoglobin 14.4 gm/dl (12.0-16.0); Lymphocyte (Absolute #) 0.65 (1.0-4.6); Mean Cell Volume 81.1 fl (78-100); Mean Corpuscular Hemoglobin 25.6 pg (26-32); Mean Corpuscular Hgb Concent. 31.6 g/dl (32-36); Mean Platelet Volume 12.1 fl (7.5-11.0); Monocytes % 3.9 % (0.0-12.0); Neutrophil % 90.7 % (36.0-66.0); Platelet Count 228 K/mm3 (150-450); Red Blood Count 5.62 M/mm3 (4.1-5.4); Red Cell Distribution Width 15.3 % (11.5-14.0); White Blood Count 12.9 K/mm3 (4.0-10.5)
[2020-02-17 22:37] LABS: Appearance CLOUDY (CLEAR); Bacteria MODERATE /HPF (NEGATIVE); Bilirubin NEGATIVE (NEGATIVE); Blood SMALL Ery/ul (0-5); Epithelial Cells FEW /HPF (FEW); Glucose NEGATIVE (NEGATIVE); Ketones NEGATIVE (NEGATIVE); Leukocyte Esterase LARGE (NEGATIVE); Mucus SLIGHT /HPF (NEGATIVE); Nitrite NEGATIVE (NEGATIVE); Protein,Urine Dip NEGATIVE (Negative); Urobilinogen 2 mg/dL (0-1); WBC 51-100 /HPF (0-5)
[2020-02-17] MEDS ORDERED: TYLENOL 325 MG PO ONE (22:38)
[2020-02-17 22:39] LABS: ALBUMIN 4.4 g/dL (3.5-5.0); ALKALINE PHOSPHATASE 87 U/L (38-126); ANION GAP 15.1 MEQ/L (5-15); BLOOD UREA NITROGEN 12 mg/dL (7-17); CHLORIDE 103 mmol/L (98-107); Calcium 10.1 mg/dL (8.4-10.2); Carbon Dioxide 21 mmol/L (22-30); Creatinine 1 0.58 mg/dL (0.52-1.04); Glucose 107 mg/dL (74-106); Potassium 4.2 mmol/L (3.5-5.1); SGOT/AST 17 U/L (14-36); SGPT/ALT 12 U/L (0-35); SODIUM 135 mmol/L (137-145); Total Protein 7.6 g/dL (6.3-8.2)
[2020-02-17] MEDS ORDERED: ZOFRAN ODT 4 MG PO ONE (22:41)
--- NOTE | 2020-02-17 22:47 | ERPHSYRPT ---
- History of Present Illness Time Seen by Provider: 02/17/20 22:10 Source: patient Exam Limitations: no limitations Patient Subjective Stated Complaint: pt c/o fever this evening 101.3 at home, cold chills, headache and body aches. Triage Nursing Assessment: pt c/o fever 101.3 at home this evening, nausea, cold chills, body aches and headache. Pt states, "My son in law was diagnosed with Covid 2 weeks ago, and I was around him 1 week ago and around my daughter in law on Mother's Day who lives with him". Pt denies cough overall, has an occasional cough but is not unusual for her as she smokes 1ppd, and denies any sob. Lungs clear, heart tones reg, abd lg, soft with active bs x4 quad, nontender. Physician History: Patient is a 54-year-old female presents to our ED with complains of fever, chills, exacerbation of her migraine and myalgias. Patient states that she has been exposed to COVID. Patient's son-in-law "tested positive. She was exposed to her son-in-law approximately 2 weeks ago. She was also exposed a second time approximately 1 week ago. Patient's current symptoms started approximately 2 days ago. Symptoms have been progressive. Patient believes that she may have COVID. Patient's headache is typical of her usual migraine headache. No neck pain. No nuchal rigidity. No photophobia. Patient has been coughing intermittently. She advises staff that she is a smoker. No associated trauma. No vomiting. No diarrhea. No rash. No shortness of breath. Patient voices no other complaints at this time. 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 Associated Symptoms: cough, headache, muscle aches, No abdominal pain, No chest pain Allergies/Adverse Reactions: amoxicillin Adverse Reaction (Verified 02/17/20 22:42) Penicillins Adverse Reaction (Verified 02/17/20 22:42) Hx Tetanus, Diphtheria Vaccination/Date Given: Yes Hx Influenza Vaccination/Date Given: Yes Hx Pneumococcal Vaccination/Date Given: Yes Immunizations Up to Date: Yes Travel Risk - International Travel Have you traveled outside of the country in past 3 weeks: No Have you or anyone close to you been diagnosed with or: Yes Do your reside in a community with a known COVID-19 case?: Yes If Yes where:: [place] - Coronavirus Screening Has patient experienced Coronavirus symptoms: Yes Symptoms experienced: fever(equal or > 100.4 F), weakness, severe headache Date of fever onset:: 02/17/20 - Review of Systems Constitutional: No Symptoms, No Fever, No Chills Eyes: No Symptoms Ears, Nose, & Throat: No Symptoms Respiratory: Cough, No Dyspnea Cardiac: No Chest Pain, No Edema, No Syncope Abdominal/Gastrointestinal: No Symptoms, Nausea, No Abdominal Pain, No Vomiting , No Diarrhea Genitourinary Symptoms: No Symptoms, No Dysuria Musculoskeletal: Myalgias, No Back Pain, No Neck Pain Skin: No Symptoms, No Rash Neurological: Headache (Exacerbation of her chronic migraine.), No Dizziness, No Focal Weakness, No Sensory Changes Psychological: No Symptoms Endocrine: No Symptoms Hematologic/Lymphatic: No Symptoms All Other Systems: Reviewed and Negative - Past Medical History Pertinent Past Medical History: Yes Neurological History: No Pertinent History ENT History: No Pertinent History Cardiac History: Hypertension Respiratory History: No Pertinent History Endocrine Medical History: No Pertinent History Musculoskeletal History: Arthritis GI Medical History: Gallbladder Disease History: No Pertinent History Psycho-Social History: No Pertinent History Female Reproductive Disorders: No Pertinent History - Past Surgical History Past Surgical History: Yes Neuro Surgical History: No Pertinent History Cardiac: No Pertinent History Respiratory: No Pertinent History Gastrointestinal: Cholecystectomy Genitourinary: No Pertinent History Musculoskeletal: No Pertinent History Female Surgical History: Hysterectomy, Section - Social History Smoking Status: Current every day smoker How long have you smoked: 32 yrs Exposure to second hand smoke: Yes Drug Use: none Patient Lives Alone: No - Nursing Vital Signs Nursing Vital Signs: Initial Vital Signs Temperature 100.0 F 02/17/20 22:03 Pulse Rate 92 H 02/17/20 22:03 Respiratory Rate 20 02/17/20 22:03 Blood Pressure 125/80 02/17/20 22:03 O2 Sat by Pulse Oximetry 95 02/17/20 22:03 Pain Scale Pain Intensity 8 - Physical Exam General Appearance: no apparent distress, alert Eye Exam: PERRL/EOMI ENT Exam: normal ENT inspection, No pharyngeal erythema, No tonsillar exudate Neck Exam: normal inspection, supple, full range of motion, No meningismus Respiratory Exam: normal breath sounds, lungs clear, no respiratory distress Cardiovascular/Chest Exam: normal heart sounds, regular rate/rhythm, No murmur, No edema Gastrointestinal/Abdominal Exam: soft, non tender, no distention Extremity Exam: non-tender, normal range of motion, normal inspection, normal capillary refill Neurologic Exam: alert, oriented x 3, cooperative, 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 tested, normal mood/affect, sensation nml, No motor deficits Skin Exam: normal color, warm, dry, No rash SpO2 Interpretation: normal SpO2: 97 O2 Delivery: Room Air - Course Nursing assessment & vital signs reviewed: Yes EKG Interpreted by Me: RATE, Sinus Rhythm, NORMAL AXIS, NORMAL INTERVALS - Radiology Exams Chest X-ray Interpretation: Teleradiologist Report (Patchy bilateral atelectasis versus minimal infiltrate.) Ordered Tests: Active Orders 24 hr Category Date Time Status EKG-ER Only STAT Care 02/17/20 22:18 Active IV Insertion STAT Care 02/17/20 22:18 Active Isolation, Initiate & Maintain Q4H Care 02/17/20 22:41 Ordered Pulse Oximetry (ED) STAT Care 02/17/20 22:18 Active CHEST 1 VIEW (PORTABLE) Stat Exams 02/17/20 22:18 Ordered BLOOD CULTURE Stat Lab 02/17/20 22:20 Ordered CBC W DIFF Stat Lab 02/17/20 22:20 Completed CMP Stat Lab 02/17/20 22:20 Received CULTURE,URINE Stat Lab 02/17/20 22:20 Received Lactic Acid Stat Lab 02/17/20 22:18 Ordered UA W/RFX UR CULTURE Stat Lab 02/17/20 22:20 Received Medication Summary Discontinued Medications Generic Name Dose Route Start Last Admin Trade Name Leonidasq PRN Reason Stop Dose Admin Acetaminophen 975 mg 02/17/20 22:38 Tylenol 325 Mg PO 02/17/20 22:39 STAT ONE Lab/Rad Data: Laboratory Result Diagrams 02/17/20 22:20 02/17/20 22:20 Laboratory Results 02/17/20 02/17/20 02/17/20 Range/Units 22:34 22:20 22:20 WBC (4.0-10.5) K/mm3 RBC (4.1-5.4) M/mm3 Hgb (12.0-16.0) gm/dl Hct (35-47) % MCV (78-100) fl MCH (26-32) pg MCHC (32-36) g/dl RDW (11.5-14.0) % Plt Count (150-450) K/mm3 MPV (7.5-11.0) fl Gran % (36.0-66.0) % Eos # (Auto) (0-0.5) Absolute Lymphs (auto) (1.0-4.6) Absolute Monos (auto) (0.0-1.3) Lymphocytes % (24.0-44.0) % Monocytes % (0.0-12.0) % Eosinophils % (0.00-5.0) % Basophils % (0.0-0.4) % Absolute Granulocytes (1.4-6.9) Basophils # (0-0.4) Sodium 135 L (137-145) mmol/L Potassium 4.2 (3.5-5.1) mmol/L Chloride 103 (98-107) mmol/L Carbon Dioxide 21 L (22-30) mmol/L Anion Gap 15.1 H (5-15) MEQ/L BUN 12 (7-17) mg/dL Creatinine 0.58 (0.52-1.04) mg/dL Estimated GFR > 60.0 ML/MIN Glucose 107 H (74-106) mg/dL Lactic Acid 1.7 (0.4-2.0) Calcium 10.1 (8.4-10.2) mg/dL Total Bilirubin 0.80 (0.2-1.3) mg/dL AST 17 (14-36) U/L ALT 12 (0-35) U/L Alkaline Phosphatase 87 (38-126) U/L Serum Total Protein 7.6 (6.3-8.2) g/dL Albumin 4.4 (3.5-5.0) g/dL Urine Color YELLOW (YELLOW) Urine Appearance CLOUDY (CLEAR) Urine pH 7.0 (5-6) Ur Specific Anderson 1.020 (1.005-1.025) Urine Protein NEGATIVE (Negative) Urine Ketones NEGATIVE (NEGATIVE) Urine Blood SMALL (0-5) John/ul Urine Nitrite NEGATIVE (NEGATIVE) Urine Bilirubin NEGATIVE (NEGATIVE) Urine Urobilinogen 2 (0-1) mg/dL Ur Leukocyte Esterase LARGE (NEGATIVE) Urine WBC (Auto) 51-100 (0-5) /HPF Urine RBC (Auto) 6-10 (0-2) /HPF U Epithel Cells (Auto) FEW (FEW) /HPF Urine Bacteria (Auto) MODERATE (NEGATIVE) /HPF Urine Mucus (Auto) SLIGHT (NEGATIVE) /HPF Urine Culture Reflexed YES (NO) Urine Glucose NEGATIVE (NEGATIVE) mg/dL 02/17/20 Range/Units 22:20 WBC 12.9 H (4.0-10.5) K/mm3 RBC 5.62 H (4.1-5.4) M/mm3 Hgb 14.4 (12.0-16.0) gm/dl Hct 45.6 (35-47) % MCV 81.1 (78-100) fl MCH 25.6 L (26-32) pg MCHC 31.6 L (32-36) g/dl RDW 15.3 H (11.5-14.0) % Plt Count 228 (150-450) K/mm3 MPV 12.1 H (7.5-11.0) fl Gran % 90.7 H (36.0-66.0) % Eos # (Auto) 0.02 (0-0.5) Absolute Lymphs (auto) 0.65 L (1.0-4.6) Absolute Monos (auto) 0.50 (0.0-1.3) Lymphocytes % 5.0 L (24.0-44.0) % Monocytes % 3.9 (0.0-12.0) % Eosinophils % 0.2 (0.00-5.0) % Basophils % 0.2 (0.0-0.4) % Absolute Granulocytes 11.74 H (1.4-6.9) Basophils # 0.02 (0-0.4) Sodium (137-145) mmol/L Potassium (3.5-5.1) mmol/L Chloride (98-107) mmol/L Carbon Dioxide (22-30) mmol/L Anion Gap (5-15) MEQ/L BUN (7-17) mg/dL Creatinine (0.52-1.04) mg/dL Estimated GFR ML/MIN Glucose (74-106) mg/dL Lactic Acid (0.4-2.0) Calcium (8.4-10.2) mg/dL Total Bilirubin (0.2-1.3) mg/dL AST (14-36) U/L ALT (0-35) U/L Alkaline Phosphatase (38-126) U/L Serum Total Protein (6.3-8.2) g/dL Albumin (3.5-5.0) g/dL Urine Color (YELLOW) Urine Appearance (CLEAR) Urine pH (5-6) Ur Specific Anderson (1.005-1.025) Urine Protein (Negative) Urine Ketones (NEGATIVE) Urine Blood (0-5) John/ul Urine Nitrite (NEGATIVE) Urine Bilirubin (NEGATIVE) Urine Urobilinogen (0-1) mg/dL Ur Leukocyte Esterase (NEGATIVE) Urine WBC (Auto) (0-5) /HPF Urine RBC (Auto) (0-2) /HPF U Epithel Cells (Auto) (FEW) /HPF Urine Bacteria (Auto) (NEGATIVE) /HPF Urine Mucus (Auto) (NEGATIVE) /HPF Urine Culture Reflexed (NO) Urine Glucose (NEGATIVE) mg/dL - Progress Progress: improved Progress Note: 02/17/20 23:55 Patient reassessed. She feels much better. Urinalysis shows a urinary tract infection. Antibiotics provided. Chest x-ray shows patchy bilateral atelectasis versus minimal infiltrate. We will treat patient with an antibiotic that covers both lung and urine. Patient is pen allergic. We will forward a prescription for Levaquin. Patient agrees to follow-up with her primary care doctor within 48 hours for reevaluation. Because of patient's COVID exposure, the [facility] is offering free COVID testing tomorrow between the hours of 9 AM to 6 PM. Patient agrees to go to the high school for the COVID screening. In the meantime patient will maintain quarantine at home. Case discussed with Dr. Sanders our on-call COVID physician who agrees with plan of care. Counseled pt/family regarding: lab results, diagnosis, need for follow-up, rad results - Departure Departure Disposition: Home Clinical Impression: UTI (urinary tract infection), Leukocytosis, Pneumonia Condition: Stable Critical Care Time: No Referrals: CHASE LEE [ACTIVE STAFF] - Instructions: Fever, Adult (DC), Pneumonia, Adult (DC) Additional Instructions: Please follow-up with your family doctor within 48 hours for re-evaluation. Discharge/Care Plan CameronAntonia was seen on 05/14/20 in the Emergency Room. The patient was counseled regarding Diagnosis,Lab results, Imaging studies, need for follow up and when to return to the Emergency Room. Prescriptions given: Discharge Note I have spoken with the patient and/or caregivers. I have explained the patient' s condition, diagnosis and treatment plan based on the information available to me at this time. I have answered the patient's and/or caregiver's questions and addressed any concerns. The patient and/or caregivers have as good understanding of the patient's diagnosis, condition and treatment plan as can be expected at this point. The vital signs have been stable. The patient's condition is stable and appropriate for discharge from the emergency department. The patient will pursue further outpatient evaluation with the primary care physician or other designated or consulting physician as outlined in the discharge instructions. The patient and/or caregivers are agreeable to this plan of care and follow-up instructions have been explained in detail. The patient and/or caregivers have received these instruction. The patient/and or caregivers are aware that any significant change in condition or worsening of symptoms should prompt an immediate return to this or the closest emergency department or call 911. Prescriptions: Levofloxacin [Levaquin 500 MG Tablet] 500 mg PO DAILY 7 Days #7 tablet
[2020-02-17] MEDS ORDERED: TYLENOL 325 MG ONE (22:58)
[2020-02-17] MEDS ORDERED: ZOFRAN ODT 4 MG ONE (22:58)
[2020-02-17] MEDS ORDERED: Macrobid 100MG Capsule PO ONE (23:02)
[2020-02-17] MEDS ORDERED: Sodium Chloride 0.9% 1000 ML 1,000 ML IV STA (23:03)
[2020-02-17] MEDS ORDERED: Sodium Chloride 0.9% 1000 ML 1,000 ML ONE (23:05)
[2020-02-17] MEDS ORDERED: Macrobid 100MG Capsule ONE (23:05)
[2020-02-17 23:48] LABS: INFLUENZA A NEGATIVE (NEGATIVE); INFLUENZA B NEGATIVE (NEGATIVE); RESPIRATORY SYNCTIAL VIRUS NEGATIVE (Negative)
[2020-02-17 23:48] LABS: Slide Review 1 YES
[2020-02-18 00:15] VITALS: BP 114/70; PULSE 83; O2SAT 95
--- NOTE | 2020-02-18 08:39 | XRAY ---
Indication: Pneumonia. Suspect Covid 19. Comparison: March 07, 2019. Portable chest remains clear again with mediastinal/pulmonary calcified granulomas. Heart is not enlarged for AP portable technique. Bony thorax intact again with mild osteopenia and degenerative changes. Impression: Continued nonacute chest with chronic features. Comment: Preliminary interpretation was made by [facility]. No critical discrepancy.
== END 2020-02-18 00:19 | disposition home or self-care (01) ==
LOC: EDBD → ED 22:01 → MERGE 22:01 → ED 02-18 00:19
DX: N39.0 Urinary tract infection, site not specified (principal); D72.829 Elevated white blood cell count, unspecified; J18.9 Pneumonia, unspecified organism; Z72.0 Tobacco use
CPT/HCPCS: 36000; 36415; 71045; 80053; 81001; 83605; 85025; 87040; 87086; 87631; 87651; 93005; 94760; 96360; 99284; Q0162; A9270-GY

== ENCOUNTER 2020-07-22 23:56 | Emergency (ER) | payer OTHER ==
[2020-07-23] MEDS ORDERED: TYLENOL 325 MG PO ONE (00:11)
[2020-07-23] MEDS ORDERED: Phenergan 25 MG INJ IM ONE (00:11)
[2020-07-23] MEDS ORDERED: TORAdol 30 mg Injection IM ONE (00:11)
[2020-07-23] MEDS ORDERED: TYLENOL 325 MG ONE (00:14)
[2020-07-23] MEDS ORDERED: TORAdol 30 mg Injection ONE (00:14)
[2020-07-23] MEDS ORDERED: Phenergan 25 MG INJ ONE (00:14)
--- NOTE | 2020-07-23 00:21 | ERPHSYRPT ---
- History of Present Illness Time Seen by Provider: 07/23/20 00:18 Source: patient Exam Limitations: no limitations Patient Subjective Stated Complaint: "I woke up with a migraine and it won't go away." Triage Nursing Assessment: Pt reported a migraine with onset this morning afte waking up. patient reported history of migraines. Reported same symptoms as her past migraines. Denied any recent injuries or illnesses. Pain located throughout her head "all over." Constant in duration and characterized as throbbing. No reported alleviating factors. Photophobia reported. Pain is non-radiating. Severity reported as moderate. Denied visual/auditory disturbances. Denied loss of consciousness, dizziness, vertigo, chest pain, palpitations, or dyspnea. Head atraumatic normocephalic. TMs clear. EOMs intact. Pupils 3mm with brisk direct and consensual reaction. Oral mucosa pink/moist without ulcerations or lesions. Neck supple non-tender without lymphadenopathy. Trachea midline without noted JVD. Symmetrical chest expansion. heart tones S1 S2 regular rate and rhythm without extra sounds. Lungs clear with adequate airflow. Peripheral pulses +2 bilateral. Equal steady gait without complications. No noted unilateral focal neurological deficits. Physician History: "I woke up with a migraine and it won't go away." Pt reported a migraine with onset this morning after waking up. patient reported history of migraines. Reported same symptoms as her past migraines. Denied any recent injuries or illnesses. Pain located throughout her head "all over." Constant in duration and characterized as throbbing. No reported alleviating factors. Photophobia reported. Pain is non-radiating. Severity reported as moderate. Denied visual/auditory disturbances. Denied loss of consciousness, dizziness, vertigo, chest pain, palpitations, or dyspnea. Timing/Duration: today Quality: tightness Head Pain Location: global Severity of Pain-Max: moderate Severity of Pain-Current: moderate Recent Head Trauma: no recent headache/trauma, frequent headaches, chronic headaches Allergies/Adverse Reactions: amoxicillin Allergy (Mild, Verified 07/23/20 00:02) Rash Penicillins Allergy (Mild, Verified 07/23/20 00:02) Rash Home Medications: Metoprolol Succinate 100 mg [Toprol Xl 100 MG] 100 mg PO DAILY 06/28/19 [History] cloNIDine [Clonidine] 0.3 mg TOP UD 06/28/19 [History] Amlodipine Besylate 5 mg [Norvasc 5 mg] 5 mg PO DAILY 08/03/19 [History] Hx Tetanus, Diphtheria Vaccination/Date Given: Yes Hx Influenza Vaccination/Date Given: Yes Hx Pneumococcal Vaccination/Date Given: Yes Travel Risk - International Travel Have you traveled outside of the country in past 3 weeks: No - Coronavirus Screening Are you exhibiting any of the following symptoms?: No Close contact with a COVID-19 positive Pt in past 14-21 Days: No - Review of Systems Constitutional: No Symptoms Eyes: No Symptoms Ears, Nose, & Throat: No Symptoms Respiratory: No Symptoms Cardiac: No Symptoms Abdominal/Gastrointestinal: No Symptoms Musculoskeletal: No Symptoms Skin: No Symptoms Neurological: Headache - Past Medical History Pertinent Past Medical History: Yes Neurological History: No Pertinent History, Migraines ENT History: No Pertinent History Cardiac History: Hypertension Respiratory History: No Pertinent History Endocrine Medical History: No Pertinent History Musculoskeletal History: Arthritis GI Medical History: No Pertinent History, Gallbladder Disease History: No Pertinent History Psycho-Social History: No Pertinent History Female Reproductive Disorders: No Pertinent History Other Medical History: anemia - Past Surgical History Past Surgical History: Yes Neuro Surgical History: No Pertinent History Cardiac: No Pertinent History Respiratory: No Pertinent History Gastrointestinal: Cholecystectomy Genitourinary: No Pertinent History Musculoskeletal: No Pertinent History Female Surgical History: Hysterectomy, Tubal Ligation, Section Other Surgical History: partial hysterectomy - Social History Smoking Status: Current every day smoker How long have you smoked: 31 years Exposure to second hand smoke: No Drug Use: none Patient Lives Alone: Yes (fiance) Significant Family History: cancer - Female History Hx Now: No - Nursing Vital Signs Nursing Vital Signs: Initial Vital Signs Temperature 97.9 F 07/22/20 23:57 Pulse Rate 90 07/22/20 23:57 Respiratory Rate 16 07/22/20 23:57 Blood Pressure 160/79 07/22/20 23:57 O2 Sat by Pulse Oximetry 98 07/22/20 23:57 Pain Scale Pain Intensity 9 - Physical Exam General Appearance: no apparent distress Eye Exam: PERRL/EOMI Ears, Nose, Throat Exam: normal ENT inspection, moist mucous membranes Neck Exam: normal inspection, supple, full range of motion, No meningismus Respiratory Exam: normal breath sounds, lungs clear Cardiovascular Exam: regular rate/rhythm, normal heart sounds Gastrointestinal/Abdominal Exam: soft, No tenderness, No distention Back Exam: normal inspection, normal range of motion Mental Status Exam: alert, oriented x 3, 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 Exam: normal speech, PERRL, No facial droop Coordination/Gait Exam: normal cerebellar function Motor/Sensory Exam: no motor deficit, no sensory deficit Skin Exam: normal color, warm, dry, No rash SpO2: 98 - Course Nursing assessment & vital signs reviewed: Yes Ordered Tests: Medication Summary Discontinued Medications Generic Name Dose Route Start Last Admin Trade Name Zuhair PRN Reason Stop Dose Admin Acetaminophen 975 mg 07/23/20 00:11 07/23/20 00:16 Tylenol 325 Mg PO 07/23/20 00:12 975 mg STAT ONE Administration Acetaminophen Confirm 07/23/20 00:14 Tylenol 325 Mg Administered 07/23/20 00:15 Dose 975 mg .ROUTE .STK-MED ONE Ketorolac Tromethamine 60 mg 07/23/20 00:11 07/23/20 00:16 Toradol 30 Mg Injection IM 07/23/20 00:12 60 mg STAT ONE Administration Ketorolac Tromethamine Confirm 07/23/20 00:14 Toradol 30 Mg Injection Administered 07/23/20 00:15 Dose 60 mg .ROUTE .STK-MED ONE Promethazine HCl 25 mg 07/23/20 00:11 07/23/20 00:16 Phenergan 25 Mg Inj IM 07/23/20 00:12 25 mg STAT ONE Administration Promethazine HCl Confirm 07/23/20 00:14 Phenergan 25 Mg Inj Administered 07/23/20 00:15 Dose 25 mg .ROUTE .STK-MED ONE - Progress Progress: improved Counseled pt/family regarding: diagnosis, need for follow-up - Departure Departure Disposition: Home Clinical Impression: Migraine headache Qualifiers: Migraine type: without aura Status migrainosus presence: without status migrainosus Intractability: intractable Qualified Code(s): G43.019 - Migraine without aura, intractable, without status migrainosus Condition: Stable Critical Care Time: No Referrals: CHASE TUCKER [Primary Care Provider] - Instructions: Migraines (DC), Headache, Adult (DC)
[2020-07-23 00:45] VITALS: BP 151/73; PULSE 82; O2SAT 96
== END 2020-07-23 00:45 | disposition home or self-care (01) ==
LOC: ED 23:56
DX: G43.019 Migraine without aura, intractable, without status migrainosus (principal)
CPT/HCPCS: 96372; 99284; J1885; J2550; A9270-GY

== ENCOUNTER 2020-09-01 17:25 | Emergency (ER) | payer OTHER ==
--- NOTE | 2020-09-01 17:34 | ERPHSYRPT ---
- History of Present Illness Time Seen by Provider: 09/01/20 17:33 Source: patient Exam Limitations: no limitations Physician History: Is a 54-year-old white female who complains of right earache. Is been present since early this morning. Patient took 1 dose of cefdinir antibiotic that was called in by her prescribing doctor today. Her ear ache is much worse and she was told to come to the emergency department if her symptoms worsen. Timing/Duration: abrupt onset, this morning ENT Location: ear (R) Prearrival Treatment: prescription meds (A single dose of cefdinir antibiotic) Associated Symptoms: ear pain (R) Allergies/Adverse Reactions: amoxicillin Allergy (Mild, Verified 07/23/20 00:02) Rash Penicillins Allergy (Mild, Verified 07/23/20 00:02) Rash Home Medications: Metoprolol Succinate 100 mg [Toprol Xl 100 MG] 100 mg PO DAILY 06/28/19 [History] cloNIDine [Clonidine] 0.3 mg TOP UD 06/28/19 [History] Amlodipine Besylate 5 mg [Norvasc 5 mg] 5 mg PO DAILY 08/03/19 [History] Hx Tetanus, Diphtheria Vaccination/Date Given: Yes Hx Influenza Vaccination/Date Given: Yes Hx Pneumococcal Vaccination/Date Given: Yes Travel Risk - International Travel Have you traveled outside of the country in past 3 weeks: No - Coronavirus Screening Are you exhibiting any of the following symptoms?: No Close contact with a COVID-19 positive Pt in past 14-21 Days: No - Review of Systems Constitutional: No Symptoms Eyes: No Symptoms Ears, Nose, & Throat: Ear Pain (Right side) Respiratory: No Symptoms Cardiac: No Symptoms Abdominal/Gastrointestinal: No Symptoms Genitourinary Symptoms: No Symptoms Musculoskeletal: No Symptoms Skin: No Symptoms Neurological: No Symptoms Psychological: No Symptoms Endocrine: No Symptoms Hematologic/Lymphatic: No Symptoms Immunological/Allergic: No Symptoms All Other Systems: Reviewed and Negative - Past Medical History Pertinent Past Medical History: Yes Neurological History: No Pertinent History, Migraines ENT History: No Pertinent History Cardiac History: Hypertension Respiratory History: No Pertinent History Endocrine Medical History: No Pertinent History Musculoskeletal History: Arthritis GI Medical History: No Pertinent History, Gallbladder Disease History: No Pertinent History Psycho-Social History: No Pertinent History Female Reproductive Disorders: No Pertinent History Other Medical History: anemia - Past Surgical History Past Surgical History: Yes Neuro Surgical History: No Pertinent History Cardiac: No Pertinent History Respiratory: No Pertinent History Gastrointestinal: Cholecystectomy Genitourinary: No Pertinent History Musculoskeletal: No Pertinent History Female Surgical History: Hysterectomy, Tubal Ligation, Section Other Surgical History: partial hysterectomy - Social History Smoking Status: Current every day smoker How long have you smoked: 31 years Exposure to second hand smoke: No Drug Use: none Patient Lives Alone: Yes (fiance) Significant Family History: cancer - Nursing Vital Signs Nursing Vital Signs: Initial Vital Signs Temperature 98.2 F 09/01/20 17:36 Pulse Rate 76 09/01/20 17:36 Respiratory Rate 20 09/01/20 17:36 Blood Pressure 161/78 09/01/20 17:36 O2 Sat by Pulse Oximetry 94 L 09/01/20 17:36 Pain Scale Pain Intensity 9 - Physical Exam General Appearance: mild distress, alert, anxiety Eye Exam: bilateral eye: normal inspection, PERRL, EOMI Ear Exam: bilateral ear: auricle normal, swelling, tenderness, TM red Nasal Exam: normal inspection Throat Exam: normal, pharynx normal, moist mucus membranes, No dental tenderness Neck Exam: normal inspection, non-tender, supple, full range of motion, No trachea midline Cardiovascular/Respiratory Exam: chest non-tender, no respiratory distress Abdominal Exam: non-tender Neurologic Exam: alert, oriented x 3, cooperative, appointment manager II-XII nml as tested, normal mood/affect, nml cerebellar function, nml station & gait, sensation nml Skin Exam: normal color, warm, dry SpO2 Interpretation: normal O2 Delivery: Room Air - Course Nursing assessment & vital signs reviewed: Yes - Progress Progress: unchanged Counseled pt/family regarding: diagnosis, need for follow-up - Departure Departure Disposition: Home Clinical Impression: Bilateral otitis media Condition: Stable Critical Care Time: No Referrals: CHASE TUCKER [Primary Care Provider] - Additional Instructions: Continue taking your cefdinir antibiotics as prescribed. Fill your prescriptions of prednisone and Maxwell pain medicine. Take them as prescribed. Follow-up with your primary care physician for further management. Prescriptions: Hydrocodone/APAP 5/325 [Maxwell 5/325 mg] 1 each PO Q8H PRN PRN #9 tablet MDD 3 PRN Reason: Pain Prednisone 10 mg [Deltasone 10 mg] 10 mg PO TID #12 tablet
[2020-09-01] MEDS ORDERED: Rocephin 1000 MG INJ IM ONE (18:05)
[2020-09-01] MEDS ORDERED: solu-MEDROL 125 MG IM ONE (18:06)
[2020-09-01] MEDS ORDERED: Norco 10/325 MG Tablet PO ONE (18:06)
[2020-09-01] MEDS ORDERED: Rocephin 1000 MG INJ ONE (18:09)
[2020-09-01] MEDS ORDERED: solu-MEDROL 125 MG ONE (18:09)
[2020-09-01] MEDS ORDERED: XYLOCAINE 1% HCL 20 ML MDV IJ ONE (18:09)
[2020-09-01] MEDS ORDERED: Norco 10/325 MG Tablet ONE (18:09)
[2020-09-01 18:41] VITALS: BP 158/86; PULSE 82; O2SAT 98
== END 2020-09-01 18:37 | disposition home or self-care (01) ==
LOC: ED 17:25
DX: H66.93 Otitis media, unspecified, bilateral (principal)
CPT/HCPCS: 96372; 99284; J0696; J2930; A9270-GY

== ENCOUNTER 2023-04-19 17:55 | Emergency (ER) | payer OTHER ==
--- NOTE | 2023-04-19 18:14 | ERPHSYRPT ---
- History of Present Illness Time Seen by Provider: 04/19/23 18:14 Source: patient, family Exam Limitations: no limitations Physician History: This is a 57-year-old obese white female who presents to the emergency department with 3-day history of her typical migraine headaches. Is not the worst headache she is ever had. Patient has been out of all her medications for last several days. She has an appointment to see her primary care provider on 04/22/2023. Patient states that she does not recall the name of her antimigraine headache medication. Patient did take Tylenol and ibuprofen prior to arrival and this did not help her pain. Patient's blood pressure upon arrival was approximately 157 over 84. She is afebrile. Patient did not suffer any acute trauma. She has no visual changes. Timing/Duration: day(s) (3) Severity of Pain-Max: mild (To moderate) Severity of Pain-Current: mild (To moderate) Recent Head Trauma: no recent headache/trauma, chronic headaches, occasional headaches Modifying Factors: Improves With: exposure to light, noise Associated Symptoms: denies symptoms Previous symptoms: same symptoms as today, no recent treatment Allergies/Adverse Reactions: amoxicillin Allergy (Mild, Verified 04/19/23 18:11) Rash Penicillins Allergy (Mild, Verified 04/19/23 18:11) Rash Home Medications: Metoprolol Succinate 100 mg [Toprol Xl 100 MG] 100 mg PO DAILY 06/28/19 [History] cloNIDine [Clonidine] 0.3 mg TOP UD 06/28/19 [History] Amlodipine Besylate 5 mg [Norvasc 5 mg] 5 mg PO DAILY 08/03/19 [History] Hx Tetanus, Diphtheria Vaccination/Date Given: Yes Hx Influenza Vaccination/Date Given: Yes Hx Pneumococcal Vaccination/Date Given: Yes Travel Risk - International Travel Have you traveled outside of the country in past 3 weeks: No - Coronavirus Screening Are you exhibiting any of the following symptoms?: No Close contact with a COVID-19 positive Pt in past 14-21 Days: No - Review of Systems Constitutional: No Symptoms Eyes: No Symptoms Ears, Nose, & Throat: No Symptoms Respiratory: No Symptoms Cardiac: No Symptoms Abdominal/Gastrointestinal: No Symptoms Genitourinary Symptoms: No Symptoms Musculoskeletal: No Symptoms Skin: No Symptoms Neurological: Headache Psychological: No Symptoms Endocrine: No Symptoms Hematologic/Lymphatic: No Symptoms Immunological/Allergic: No Symptoms All Other Systems: Reviewed and Negative - Past Medical History Pertinent Past Medical History: Yes Neurological History: No Pertinent History, Migraines ENT History: No Pertinent History Cardiac History: Hypertension Respiratory History: No Pertinent History Endocrine Medical History: No Pertinent History Musculoskeletal History: Arthritis GI Medical History: No Pertinent History, Gallbladder Disease History: No Pertinent History Psycho-Social History: No Pertinent History Female Reproductive Disorders: No Pertinent History Other Medical History: anemia - Past Surgical History Past Surgical History: Yes Neuro Surgical History: No Pertinent History Cardiac: No Pertinent History Respiratory: No Pertinent History Gastrointestinal: Cholecystectomy Genitourinary: No Pertinent History Musculoskeletal: No Pertinent History Female Surgical History: Hysterectomy, Tubal Ligation, Section Other Surgical History: partial hysterectomy - Social History Smoking Status: Current every day smoker How long have you smoked: 31 years Exposure to second hand smoke: No Drug Use: none Patient Lives Alone: Yes (fiance) Significant Family History: cancer - Nursing Vital Signs Nursing Vital Signs: Initial Vital Signs Blood Pressure 157/84 04/19/23 18:06 O2 Sat by Pulse Oximetry 97 04/19/23 18:06 Pain Scale Pain Intensity 10 - Physical Exam General Appearance: no apparent distress, alert, obese Eye Exam: PERRL/EOMI, eyes nml inspection Ears, Nose, Throat Exam: normal ENT inspection, moist mucous membranes Neck Exam: normal inspection, non-tender, supple, full range of motion Respiratory Exam: normal breath sounds, lungs clear, airway intact, No chest tenderness, No respiratory distress Cardiovascular Exam: regular rate/rhythm, normal heart sounds, normal peripheral pulses Gastrointestinal/Abdominal Exam: soft, normal bowel sounds, No tenderness Back Exam: normal inspection, normal range of motion, No CVA tenderness, No vertebral tenderness Extremity Exam: normal inspection, normal range of motion, pelvis stable Mental Status Exam: alert, oriented x 3, 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 Exam: normal hearing, normal speech, PERRL Coordination/Gait Exam: normal finger to nose, normal gait, normal cerebellar function Motor/Sensory Exam: no motor deficit, no sensory deficit Skin Exam: normal color, warm, dry Lymphatic Exam: No adenopathy SpO2 Interpretation: normal O2 Delivery: Room Air - Course Nursing assessment & vital signs reviewed: Yes Ordered Tests: Active Orders 24 hr Category Date Time Status UA W/RFX UR CULTURE Stat Lab 04/19/23 18:30 Received Medication Summary Discontinued Medications Generic Name Dose Route Start Last Admin Trade Name Zuhair PRN Reason Stop Dose Admin Methylprednisolone Sodium 0 mg 04/19/23 18:21 04/19/23 18:28 Succinate 125 mg/ Sterile IM 04/19/23 18:22 125 mg Water 2 ml STAT ONE Administration Diphenhydramine HCl 50 mg 04/19/23 18:21 04/19/23 18:28 Diphenhydramine Hcl 50 Mg/Ml Vial IM 04/19/23 18:22 50 mg STAT ONE Administration Diphenhydramine HCl Confirm 04/19/23 18:27 Diphenhydramine Hcl 50 Mg/Ml Vial Administered 04/19/23 18:28 Dose 50 mg .ROUTE .STK-MED ONE Methylprednisolone Sodium Succinate Confirm 04/19/23 18:27 Methylprednis Sod Succ 125 Mg/2 Ml Vial Administered 04/19/23 18:28 Dose 125 mg .ROUTE .STK-MED ONE Prochlorperazine Edisylate 10 mg 04/19/23 18:21 04/19/23 18:29 Prochlorperazine Edisylate 10 Mg/2 Ml Vial IM 04/19/23 18:22 10 mg STAT ONE Administration Prochlorperazine Edisylate Confirm 04/19/23 18:27 Prochlorperazine Edisylate 10 Mg/2 Ml Vial Administered 04/19/23 18:28 Dose 10 mg .ROUTE .STK-MED ONE Sterile Water Confirm 04/19/23 18:27 Water For Injection,Sterile 10 Ml Vial Administered 04/19/23 18:28 Dose 10 ml IJ .STK-MED ONE Lab/Rad Data: Laboratory Results 04/19/23 Range/Units 18:30 Urine Color Yellow (Yellow) Urine Appearance Clear (Clear) Urine pH 5.5 (4.6-8.0) Ur Specific [place] 1.015 (1.005-1.030) Urine Protein Negative (Negative) Urine Glucose (UA) Negative (Negative) mg/dL Urine Ketones Negative (Negative) Urine Blood Negative (Negative) Urine Nitrite Negative (Negative) Urine Bilirubin Negative (Negative) Urine Urobilinogen 0.2 (0.2) mg/dL Ur Leukocyte Esterase Small A (Negative) U Hyaline Cast (Auto) NONE SEEN (0-2) /LPF Urine Microscopic RBC 3-5 (0-5) /HPF Urine Microscopic WBC 6-10 A (0-5) /HPF Ur Epithelial Cells Rare (None Seen) /HPF Urine Bacteria Rare A (None Seen) /HPF Urine Culture Reflexed YES (NO) - Progress Progress: improved, re-examined Air Movement: good Progress Note: 04/19/23 18:40 This patient's medical issues of low complexity. The level of complexity in the work-up performed is based on review of the patient's past medical history, review of the patient's medication list, review of the patient's drug allergy list, history of present illness and physical findings on examination. The patient thinks she may be dehydrated so we are obtaining a urinalysis to evaluate for dehydration and urinary tract infection. No other laboratory or radiographic studies necessary. We will provide her with intramuscular steroid, intramuscular Compazine and intramuscular Benadryl. Depending on the urinalysis results that will dictate whether the patient requires intravenous line. 04/19/23 18:53 Patient does have a mild urinary tract infection without evidence of dehydration. We will provide patient with Levaquin 500 mg orally now and send a prescription to her pharmacy remotely for Cipro 500 mg orally twice a day for 7 days. Blood Culture(s) Obtained: No Antibiotics given: No Counseled pt/family regarding: diagnosis, need for follow-up Medical Desision Making - Diagnostic Testing Diagnostic test were ordered, analyzed, and reviewed by me: Yes - Risk of complications Minimal Risk: Minimal risk of morbidity The pt has a mod risk of morbidity or mortality based on: Need for prescription drug management - Departure Departure Disposition: Home Clinical Impression: Migraine headache, UTI (urinary tract infection) Condition: Stable Critical Care Time: No Referrals: CHASE REAGAN [Primary Care Provider] - Follow up/PCP as directed Additional Instructions: Drink plenty of fluids. Take your antibiotics as prescribed. Follow-up with your prescribing provider on 04/22/2023 for further evaluation management. Prescriptions: Ciprofloxacin [Cipro 500 MG] 500 mg PO BID #14 tablet
[2023-04-19 18:18] VITALS: BP 157/84; PULSE 96; O2SAT 97
[2023-04-19] MEDS ORDERED: Compazine 10 MG/2 ML IM ONE (18:21)
[2023-04-19] MEDS ORDERED: solu-MEDROL 125 MG, Sterile H2O 10 ml 2 ML IM ONE ×2 (18:21)
[2023-04-19] MEDS ORDERED: BENADRYL 50 MG/ML IM ONE (18:21)
[2023-04-19] MEDS ORDERED: solu-MEDROL ONE (18:27)
[2023-04-19] MEDS ORDERED: BENADRYL 50 MG/ML ONE (18:27)
[2023-04-19] MEDS ORDERED: Sterile H2O 10 ml IJ ONE (18:27)
[2023-04-19] MEDS ORDERED: Compazine 10 MG/2 ML ONE (18:27)
[2023-04-19 18:41] LABS: Appearance Clear (Clear); Bacteria Rare /HPF (None Seen); Bilirubin Negative (Negative); Blood Negative (Negative); Epithelial Cells Rare /HPF (None Seen); Glucose, Urine Negative (Negative); Hyaline Casts NONE SEEN /LPF (0-2); Ketones Negative (Negative); Leukocyte Esterase Small (Negative); Nitrite Negative (Negative); Ph 5.5 (4.6-8.0); Protein,Urine Dip Negative (Negative); Specific Gravity 1.015 (1.005-1.030); Urobilinogen 0.2 mg/dL (0.2)
[2023-04-19 18:47] LABS: ADD URINE CULTURE? YES (NO)
[2023-04-19] MEDS ORDERED: Levofloxacin 500 MG Tablet PO ONE (18:52)
[2023-04-19] MEDS ORDERED: Levofloxacin 500 MG Tablet ONE (18:57)
[2023-04-19] MEDS ORDERED: NORCO 5/325 MG PO ONE (19:03)
[2023-04-19] MEDS ORDERED: NORCO 5/325 MG ONE (19:12)
== END 2023-04-19 19:22 | disposition home or self-care (01) ==
LOC: ED 17:55
DX: G43.909 Migraine, unspecified, not intractable, without status migrainosus (principal); N39.0 Urinary tract infection, site not specified; I10 Essential (primary) hypertension; Z79.899 Other long term (current) drug therapy; Z72.0 Tobacco use
CPT/HCPCS: 81001; 87086; 96372; 99283; J1200; J2930; A9270-GY